=== PATIENT | female | born 1940 | race Caucasian/White ===

== ENCOUNTER 2023-09-17 15:17 | Emergency (ER) | payer OTHER ==
--- NOTE | 2023-09-17 15:55 | RAD REPORT ---
EXAM DESCRIPTION: CT - CTHCSPWOC - 09/17/2023 3:46 pm CLINICAL HISTORY: Trauma, head and neck injury. fall COMPARISON: No comparisons TECHNIQUE: Axial 5 mm thick images of the head were obtained. Axial 2 mm thick images of the cervical spine were obtained with sagittal and coronal reconstruction images generated and reviewed. All CT scans are performed using dose optimization technique as appropriate and may include automated exposure control or mA/KV adjustment according to patient size. FINDINGS: CT HEAD WITHOUT CONTRAST: No acute hemorrhage, hydrocephalus or extra-axial collection is identified.Mild generalized brain atr ophy is present with mild periventricular and deep white matter chronic microvascular ischemic change s.No areas of brain edema or midline shift. Vertebral atherosclerosis. The paranasal sinuses and mastoids are clear.The calvarium is intact. CT CERVICAL SPINE WITHOUT CONTRAST: No fracture or subluxation.Mild cervical degenerative changes, greatest at C3-4 and C4-5.No preverteb ral soft tissues swelling is identified. Mildly prominent lymph nodes are seen in the submandibular r egion bilaterally, nonspecific. IMPRESSION: No acute intracranial or cervical spine findings.
--- NOTE | 2023-09-17 16:15 | RAD REPORT ---
EXAM DESCRIPTION: RAD - Chest Single View - 09/17/2023 4:07 pm CLINICAL HISTORY: fall Chest pain. COMPARISON: <Comparisons> FINDINGS: Portable technique limits examination quality. The lungs are grossly clear. There is a small left pleural effusion noted. The heart is mildly enlarg ed with a dual lead pacer device present. IMPRESSION: Small left pleural effusion.
--- NOTE | 2023-09-17 16:16 | RAD REPORT ---
EXAM DESCRIPTION: RAD - Wrist Left 3 View - 09/17/2023 4:07 pm CLINICAL HISTORY: PAIN Pain COMPARISON: <Comparisons> FINDINGS: The bones are mildly demineralized. No fracture or dislocation seen. No foreign body or o ther soft tissue abnormality. Prominent degenerative changes seen first carpal/metacarpal joint.
--- NOTE | 2023-09-17 16:31 | EDPHYS ---
Physician Documentation [facility] Name: Miranda Myers Age: 83 yrs Sex: Female : 1940 Arrival Date: 09/17/2023 Time: 15:17 Bed 17 Private MD: ED Physician Shaun Sherwood HPI: 09/16 15:24 This 83 yrs old Female presents to ER via Unassigned with complaints of fall, ec2 wrist pain, neck pain. 15:24 Patient arrives today for evaluation of a fall. States that she was walking, ec2 subsequently tripped over a curb. Reports that she tried to land on her left outstretched arm however injured it. Denies loss of consciousness, is on warfarin. Complaining of neck pain as well. Historical: - Allergies: 15:27 No Known Allergies; ap3 - Home Meds: 15:27 Coumadin Oral [Active]; ap3 - PMHx: 15:27 hypotention; Diabetes mellitus; DVT; ap3 - Immunization history:: Client reports receiving the 2nd dose of the Covid vaccine, Last tetanus immunization: up to date. - Infectious Disease History:: Denies. - Social history:: Smoking status: Patient denies any tobacco usage or history of. ROS: 15:24 Constitutional: as per hpi ec2 Exam: 15:24 Constitutional: GEN: No acute distress HEENT: -Head: no deformities -Eyes: EOMI CV: ec2 regular rate LUNGS: no respiratory distress ABD: non-tender SKIN: no wounds appreciated MSK: No C/T/L spine deformities, C-spine TTP RUE w/o bony deformity LUE w/o bony deformity, left wrist TTP without deformity, no crepitus, intact distal neurovascular status. RLE w/o bony deformity LLE w/o bony deformity NEURO: moves all extremities equally, GCS 15 (E4, V5, M6) Vital Signs: 15:25 Weight 65.77 kg; Height 5 ft. 5 in. ; Pain 6/10; ap3 16:52 BP 130 / 85; Pulse 51; Resp 17; Pulse Ox 98% ; nj1 19:15 BP 126 / 80; Pulse 50; Resp 16; Pulse Ox 97% ; nj1 15:25 Body Mass Index 24.13 (65.77 kg, 165.1 cm) ap3 15:25 Pain Scale: Adult ap3 MDM: 15:19 Patient medically screened. ec2 15:24 Data reviewed: vital signs. ED course: Patient arrives today for wrist pain and neck ec2 pain. Examination remarkable for well-appearing nontoxic but is otherwise in no acute distress with reproducible left wrist TTP and C-spine TTP. Will obtain CT scan of the head and C-spine given the patient's age and blood thinner use, also plain radiograph of the left wrist. Differential diagnose include wrist fracture, intracranial brain bleed, C-spine fracture.. 16:27 ED course: Chest x-ray Reviewed and interpreted by me, shows left-sided pleural ec2 effusion, no evidence of trauma. CT scan of the head as well as wrist radiographs show no acute traumatic pathology. Reassessment patient is well-appearing in no acute distress, no respiratory issues. Will discharge home. Return precautions given . 09/16 15:24 Order name: CT Head C Spine; Complete Time: 16:26 ec2 09/16 15:24 Order name: Wrist Left (3 View) XRAY; Complete Time: 16:26 ec2 09/16 15:24 Order name: CXR XRAY; Complete Time: 16:26 ec2 09/16 16:50 Order name: Vital Signs; Complete Time: 16:52 ec2 Administered Medications: No medications were administered Disposition Summary: 09/17/23 16:31 Discharge Ordered Notes: Location: Home ec2 Condition: Stable ec2 Diagnosis - Pain in left wrist ec2 - Strain of muscle, fascia and tendon at neck level ec2 Followup: ec2 - With: Private Physician - When: - Reason: Re-evaluation by your physician Discharge Instructions: - Discharge Summary Sheet ec2 - Wrist Pain, Adult, [id number] ec2 Forms: - Medication Reconciliation Form ec2 - Antibiotic Education ec2 - Prescription Opioid Use ec2 - Patient Portal Instructions ec2 - Leadership Thank You Letter ec2 Signatures: Dispatcher [employer] Fifi Dan RN RN ap3 Shaun Sherwood MD MD ec2 Corrections: (The following items were deleted from the chart) 15:24 15:24 Chest Single View+[id number].[email or web address] ordered. EDMS EDMS
--- NOTE | 2023-09-17 16:31 | ER ---
Nurse's Notes [facility] Name: Miranda Myers Age: 83 yrs Sex: Female : 1940 Arrival Date: 09/17/2023 Time: 15:17 Bed 17 Private MD: Diagnosis: Pain in left wrist;Strain of muscle, fascia and tendon at neck level Presentation: 09/16 15:25 Chief complaint: EMS states: patient tripped and fall over curb FELT [employer], complaining of ap3 pain on her left hand, and left arm. EMS states patient was laying on her left arm when they arrived. Patient denies LOC, and denies hitting her head. patient is on Coumadin. Coronavirus screen: At this time, the client does not indicate any symptoms associated with coronavirus-19. Ebola Screen: No symptoms or risks identified at this time. Initial Sepsis Screen: Does the patient meet any 2 criteria? No. Patient's initial sepsis screen is negative. Does the patient have a suspected source of infection? No. Patient's initial sepsis screen is negative. Risk Assessment: Do you want to hurt yourself or someone else? Patient reports no desire to harm self or others. Onset of symptoms was September 17, 2023. 15:25 Method Of Arrival: EMS: [facility] ap3 15:25 Acuity: TEVIN 3 ap3 Triage Assessment: 15:28 General: Appears in no apparent distress. Behavior is calm, cooperative, appropriate ap3 for age. Pain: Complains of pain in left hand and left arm Pain currently is 6 out of 10 on a pain scale. Pain began suddenly, after fall. Neuro: Level of Consciousness is awake, alert, obeys commands, Oriented to person, place, time, situation. Cardiovascular: Patient's skin is warm and dry. Respiratory: Airway is patent Respiratory effort is even, unlabored, Respiratory pattern is regular, symmetrical. Historical: - Allergies: 15:27 No Known Allergies; ap3 - Home Meds: 15:27 Coumadin Oral [Active]; ap3 - PMHx: 15:27 hypotention; Diabetes mellitus; DVT; ap3 - Immunization history:: Client reports receiving the 2nd dose of the Covid vaccine, Last tetanus immunization: up to date. - Infectious Disease History:: Denies. - Social history:: Smoking status: Patient denies any tobacco usage or history of. Screenin:28 Abuse screen: Denies threats or abuse. Nutritional screening: No deficits noted. ap3 Tuberculosis screening: No symptoms or risk factors identified. 16:00 [facility] ED Fall Risk Assessment (Adult) History of falling in the last 3 months, nj1 including since admission Yes- single mechanical fall (1 pt) Confusion or Disorientation No (0 pts) Intoxicated or Sedated No (0 pts) Impaired Gait Yes (1 pt) Mobility Assist Device Used Yes (1 pt) Altered Elimination No (0 pt) Score/Fall Risk Level 3 or more points = High Risk Oriented to surroundings, Maintained a safe environment, Hourly rounding (assess needs \T\ fall precautionary measures) done. Assessment: 15:21 Reassessment: Daughter Victoria Davis [phone]. hb 16:53 Reassessment: Patient appears in no apparent distress at this time. Call placed to [facility] patients daughter to advise patient has been discharge, needs transport home. 17:00 Reassessment: Awaiting discharge transportation. nj 18:52 Reassessment: Unsuccessful attempt to call patients daughter to obtain discharge [facility] transportation update. 19:15 Reassessment: Patient appears in no apparent distress at this time. Patient is alert, nj1 oriented x 3, equal unlabored respirations, skin warm/dry/pink. 19:30 Reassessment: Daughter here to take patient home. Assisted patient to wheelchair and nj1 taken to vehicle. Vital Signs: 15:25 Weight 65.77 kg; Height 5 ft. 5 in. ; Pain 6/10; ap3 16:52 BP 130 / 85; Pulse 51; Resp 17; Pulse Ox 98% ; nj1 19:15 BP 126 / 80; Pulse 50; Resp 16; Pulse Ox 97% ; nj1 15:25 Body Mass Index 24.13 (65.77 kg, 165.1 cm) ap3 15:25 Pain Scale: Adult ap3 ED Course: 15:19 Patient arrived in ED. ec2 15:19 Shaun Sherwood MD is Attending Physician. ec2 15:27 Triage completed. ap3 15:29 Arm band placed on right wrist. ap3 15:29 Patient has correct armband on for positive identification. Fall risk band placed. ap3 15:47 CT Head C Spine In Process Unspecified. EDMS 16:00 Provided Education on: call light, fall precautions. nj1 16:09 Wrist Left (3 View) XRAY In Process Unspecified. EDMS 16:09 CXR XRAY In Process Unspecified. EDMS 16:11 Deloris Alas, RN is Primary Nurse. nj1 16:50 No provider procedures requiring assistance completed. nj1 16:50 Patient did not have IV access during this emergency room visit. nj1 Administered Medications: No medications were administered Medication: 16:50 VIS not applicable for this client. nj1 Outcome: 16:31 Discharge ordered by . ec2 16:50 Discharged to home nj1 16:50 Condition: stable 16:50 Discharge instructions given to patient, Instructed on discharge instructions, follow up and referral plans. safety practices, Demonstrated understanding of instructions, follow-up care, 19:42 Patient left the ED. nj1 Signatures: Dispatcher [employer] EDPR Doris Renee RN RN Fifi Street RN RN ap3 Deloris Alas RN RN nj1 Shaun Sherwood MD MD ec2
[2023-09-17 21:25] VITALS: BP 130/85; O2SAT 98
== END 2023-09-17 19:42 | disposition home or self-care (01) ==
LOC: ER 15:17
DX: S16.1XXA Strain of muscle, fascia and tendon at neck level, initial encounter (principal); M25.532 Pain in left wrist; W18.09XA Striking against other object with subsequent fall, initial encounter
CPT/HCPCS: 70450; 71045; 72125; 99283

== ENCOUNTER 2023-12-06 15:41 | Inpatient (IN) | payer OTHER ==
[2023-12-06 16:34] LABS: Absolute Eosinophils 0.1 K/uL (0-0.5); Absolute Lymphocytes (CBC) 0.6 K/uL (0.7-4.9); Absolute Monocytes 0.2 K/uL (0.1-1.3); Absolute Neutrophil 2.7 K/uL (1.8-8.0); Basophils % 0.7 % (0-1.3); Eosinophils % 1.7 % (0-4.4); Hematocrit 37.3 % (36.0-45.0); Hemoglobin 11.9 g/dL (12.0-15.0); Lymphocytes % 17.4 % (15.3-44.8); MCH 31.3 pg (27.0-35.0); MCV 97.6 fL (80-100); MPV 10.3 fL (7.6-11.3); Monocytes % 6.3 % (3.3-12.3); Neutrophils % 73.9 % (41.7-73.7); Nucleated Red Blood Cells % 0.8 % (0-0); Platelets 59 thou/uL (152-406); RBC Red Blood Cell Count 3.82 M/uL (3.86-4.86); Red Cell Distribution Width 17.1 % (12.1-15.2)
[2023-12-06 16:35] LABS: Blood Morphology Comment NOT SEEN (NOT SEEN); Platelet Estimate DECR; Platelets, Giant PRESENT; White Blood Cell Scan OK (OK)
[2023-12-06 16:39] LABS: PT Prothrombin Time 13.3 SECONDS (9.4-12.5); PTT, Activated Partial Thromb 26.7 SECONDS (24.3-36.9); Protime INR 1.19
[2023-12-06 16:52] LABS: Albumin 3.3 g/dL (3.4-5.0); Albumin/Globulin Ratio 0.9 (1.1-1.8); Anion Gap 10.8 mEq/L (5.0-15.0); Bilirubin Total 1.3 mg/dL (0.2-1.0); Globulin 3.6 g/dL (2.3-3.5); Potassium 2.8 mEq/L (3.5-5.1); Protein, Total 6.9 g/dL (6.4-8.2); Troponin High Sensitivity 91.4 pg/mL (<58.9)
--- NOTE | 2023-12-06 16:52 | RAD REPORT ---
EXAM DESCRIPTION: Coreen Single View12/06/2023 4:34 pm CLINICAL HISTORY: Confusion COMPARISON: September 2023 FINDINGS: The lungs appear clear of acute infiltrate. The heart is mildly enlarged. Pacemaker leads are in place. IMPRESSION: No acute abnormalities displayed
--- NOTE | 2023-12-06 16:55 | RAD REPORT ---
EXAM DESCRIPTION: CT - Head Brain Wo Cont - 12/06/2023 4:40 pm CLINICAL HISTORY: Alteration of awareness/confusion COMPARISON: August 2023 TECHNIQUE: Computed axial tomography of the head was obtained. IV contrast was not requested. All CT scans are performed using dose optimization technique as appropriate and may include automated exposure control or mA/KV adjustment according to patient size. FINDINGS: An intracranial bleed is not seen The ventricles are normal in caliber No extra-axial fluid collection is noted. Prominent cerebral atrophy Mild low-density areas within periventricular, deep and subcortical white matter likely represent isc hemic changes secondary to small vessel disease. Fluid within the sinuses/ mastoids is not seen. IMPRESSION: No acute intracranial abnormality is seen If patient's symptoms persist MRI of the brain would be recommended
[2023-12-06 17:12] LABS: Specific Gravity 1.027 (1.005-1.030); Sqamous Epithelial <5 /HPF (None Seen); Urine Bacteria <20 /HPF (<20); Urine Bilirubin 1+ (Negative); Urine Blood Negative (Negative); Urine Clarity Turbid (Clear); Urine Color Yellow (Yellow); Urine Culture Reflex Order NOT NEEDED; Urine Glucose NEGATIVE (Negative); Urine Ketones NEGATIVE (Negative); Urine Microscopic Reflex YN ORDER UMIC; Urine Mucus 1+ /HPF (None Seen); Urine Nitrite NEGATIVE (Negative); Urine Protein 1+ (Negative); Urine RBC 21-50 /HPF (None Seen); Urine Urobilinogen 2+ (Normal); Urine WBC <5 /HPF (<5); Urine pH 5.5 (5.0-7.0)
--- NOTE | 2023-12-06 18:13 | ER ---
Nurse's Notes [facility] Name: Miranda Myers Age: 83 yrs Sex: Female : 1940 Arrival Date: 12/06/2023 Time: 15:41 Bed 6 Private MD: Diagnosis: Altered mental status, hyponatremia Presentation: 12/05 15:47 Chief complaint: EMS states: Pt brought in via EMS from home for altered mental status. dd2 Per EMS, pt's daughter states that pt was not responding to her. Daughter states that at 0700 this morning, she heard her mother snoring and assumed she was asleep. Last known well was last night. Pt has Hx Dementia. Coronavirus screen: At this time, the client does not indicate any symptoms associated with coronavirus-19. Ebola Screen: No symptoms or risks identified at this time. Initial Sepsis Screen: Does the patient meet any 2 criteria? No. Patient's initial sepsis screen is negative. Does the patient have a suspected source of infection? No. Patient's initial sepsis screen is negative. Risk Assessment: Do you want to hurt yourself or someone else? Unable to obtain. Onset of symptoms is unknown. Care prior to arrival: Medication(s) given: Normal saline infusion, 200cc IV initiated. 18 GA, in the right antecubital area, Glucose check: 122. 15:47 Method Of Arrival: EMS: [facility] dd2 15:47 Acuity: TEVIN 2 dd2 Triage Assessment: 15:54 General: Appears ill, unkempt, Behavior is lethargic. Smells of urine. Pain: Unable to dd2 use pain scale. Does not appear to understand pain scale. EENT: Oral mucosa is dry. mouth and tongue are dry and peeling. Neuro: Level of Consciousness is lethargic, Oriented to none. Historical: - PMHx: 15:54 Dementia; diabetes mellitus; DVT; Hypotention; dd2 - Immunization history:: Adult Immunizations unknown. - Infectious Disease History:: unable to access. - Social history:: Smoking status: unknown. - Unable to obtain history due to: altered mental status. Screenin:25 [facility] ED Fall Risk Assessment (Adult) History of falling in the last 3 months, dd2 including since admission Yes- fall prone (multiple falls) (3 pts) Confusion or Disorientation Yes (5 pts) Intoxicated or Sedated No (0 pts) Impaired Gait Yes (1 pt) Mobility Assist Device Used Yes (1 pt) Altered Elimination Yes (1 pt) Score/Fall Risk Level 3 or more points = High Risk Oriented to surroundings, Maintained a safe environment, Hourly rounding (assess needs \\T\\ fall precautionary measures) done, Utilized family, sitter, or virtual sfdc solution architect as indicated. Abuse screen: Per [facility], report being filed with APS. Informed tank builder and erector of situation documented and need of APS call. Nutritional screening: Oral mucosa dry and peeling. Pt's daughter states pt has decreased taking in PO liquid of food.. Tuberculosis screening: No symptoms or risk factors identified. Assessment: 16:25 Pain: Unable to use pain scale. Does not appear to understand pain scale. dd2 Cardiovascular: Heart tones S1 S2 skin cool to touch. Rhythm is atrial pacer. Respiratory: Airway is patent Trachea Respiratory effort is even, unlabored, Respiratory pattern is snoring Breath sounds are clear bilaterally. GI: Abdomen is non-distended, Abd is soft and non tender Pt's daughter states decrease in food and po liquid intake. : Blevins in place Urine is tea colored. Musculoskeletal: Capillary refill < 3 seconds. 17:06 Reassessment: Pt noted wearing 2 adult briefs, and one incontinence pads. All saturated dd2 with foul smelling, tea colored urine. Breakdown noted to Lt groin area. This RN inquired when the last brief change occurred. Daughter stated "2 days ago". 17:13 Derm:. Derm: Wound noted left inguinal area Wound is Pressure wound noted after dd2 removing 2 briefs and incontinent pad. 18:03 Reassessment: Patient and/or family updated on plan of care and expected duration. Pain rs5 level reassessed. family at bedside . General: Appears in no apparent distress. comfortable, ill. Neuro:. 12/06 12:03 Reassessment: APS report made REF #[id number] June ([id number]). dd2 Vital Signs: 12/05 15:47 BP 112 / 86; Pulse 91; Resp 18; Temp 96.9(TE); Pulse Ox 96% ; dd2 16:48 BP 131 / 82; Pulse 91; Resp 19; Pulse Ox 97% ; dd2 17:15 BP 149 / 96; Pulse 88; Resp 19; Temp 96.9(TE); Pulse Ox 96% ; dd2 18:00 BP 105 / 67; Pulse 85; Resp 17; Pulse Ox 93% ; dd2 19:43 BP 105 / 81; Pulse 80; Resp 22; Temp 96.5(A); Pulse Ox 94% on R/A; br2 21:04 BP 128 / 82; Pulse 81; Resp 18; Pulse Ox 94% on R/A; br2 21:34 BP 117 / 66; Pulse 83; Resp 18; Temp 96.4(A); Pulse Ox 94% on R/A; br2 22:10 BP 121 / 77; Pulse 85; Resp 18; Temp 97(A); Pulse Ox 93% on R/A; br2 ED Course: 15:42 Patient arrived in ED. ko1 15:43 Reilly Noel MD is Attending Physician. sp3 15:46 PACHECO RUIZ, RN is Primary Nurse. dd2 15:54 Triage completed. dd2 15:54 Arm band placed on right wrist. Patient placed in an exam room, on a stretcher, on dd2 secured entrance monitor, on pulse oximetry. 16:20 Client placed on continuous cardiac and pulse oximetry monitoring. NIBP monitoring dd2 applied. satellite project site monitor on. 16:20 No provider procedures requiring assistance completed. Initial lab(s) drawn, by ED dd2 staff, sent to lab. First set of blood cultures drawn by ED staff, Urine collected: Blevins catheter specimen, tea colored, sediment noted, Amount Returned: 400mL EKG done, by ED staff, reviewed by Reilly Noel MD. 16:25 Patient has correct armband on for positive identification. Bed in low position. Call dd2 light in reach. Side rails up X2. Adult w/ patient. Door closed. Warm blanket given. 16:35 Chest Single View XRAY In Process Unspecified. EDMS 16:41 CT Head Brain wo Cont In Process Unspecified. EDMS 17:00 Maintain EMS IV. Dressing intact. Good blood return noted. Site clean \\T\\ dry. Gauge \\T\\ dd 2 site: 18g RAC. Flushed with 10 mL NS. 18:12 Dionicio Harrison MD is Hospitalizing Provider. sp3 21:30 Patient admitted, IV remains in place. br2 21:44 SBAR FAXED AND 4TH FLOOR NOTIFIED VIA PHONE. br2 22:37 Provided Education on: need for admission. bm8 Administered Medications: No medications were administered Medication: 16:25 VIS not applicable for this client. dd2 Output: 19:45 Urine: 350ml (Blevins); Total: 350ml. br2 Outcome: 18:12 Decision to Hospitalize by Provider. sp3 21:28 Admitted to Med/surg accompanied by nurse, via stretcher, room 412, br2 21:28 Condition: stable 22:38 Patient left the ED. br2 Signatures: Dispatcher [employer] EDMS Reilly Noel MD MD sp3 Mali Renae RN RN ko1 Johnathon Parker RN RN rs5 Win Kirby RN RN bm8 Carmella Witt, RN RN br2 PACHECO RUIZ RN RN dd2
--- NOTE | 2023-12-06 18:13 | EDPHYS ---
Physician Documentation [facility] Name: Miranda Myers Age: 83 yrs Sex: Female : 1940 Arrival Date: 12/06/2023 Time: 15:41 Bed 6 Private MD: ED Physician Reilly Noel HPI: 12/05 16:22 This 83 yrs old Female presents to ER via EMS with complaints of Altered Mental Status. sp3 16:22 83-year-old female with history of dementia, diabetes, prior DVT, hypertension in the sp3 past now presents via EMS referred by daughter who states that her mental status is suddenly became worse with full loss of orientation and decreased ability to speak. She denies any known fever, significant fluid losses, known sick contacts, travel history, complaints of any pain, or any other signs or symptoms on limited ROS as given by daughter at this time. Patient's direct history and physical and ROS limited secondary to her dementia and altered mental status.. Historical: - PMHx: 15:54 Dementia; diabetes mellitus; DVT; Hypotention; dd2 - Immunization history:: Adult Immunizations unknown. - Infectious Disease History:: unable to access. - Social history:: Smoking status: unknown. - Unable to obtain history due to: altered mental status. ROS: 16:23 Unable to obtain ROS due to altered mental status, baseline dementia, sp3 Exam: 16:23 Constitutional: The patient appears Grossly patient in no acute distress based on sp3 visualization. Abdomen is soft, lungs are clear heart rate is normal and regular. Patient does respond to verbal stimuli however is disoriented and speech is mumbled and limited. 16:29 ECG was reviewed by the Attending Physician. EKG demonstrates paced rhythm with sp3 ventricular arrhythmia and ventricular capture at 90 bpm Vital Signs: 15:47 BP 112 / 86; Pulse 91; Resp 18; Temp 96.9(TE); Pulse Ox 96% ; dd2 16:48 BP 131 / 82; Pulse 91; Resp 19; Pulse Ox 97% ; dd2 17:15 BP 149 / 96; Pulse 88; Resp 19; Temp 96.9(TE); Pulse Ox 96% ; dd2 18:00 BP 105 / 67; Pulse 85; Resp 17; Pulse Ox 93% ; dd2 19:43 BP 105 / 81; Pulse 80; Resp 22; Temp 96.5(A); Pulse Ox 94% on R/A; br2 21:04 BP 128 / 82; Pulse 81; Resp 18; Pulse Ox 94% on R/A; br2 21:34 BP 117 / 66; Pulse 83; Resp 18; Temp 96.4(A); Pulse Ox 94% on R/A; br2 22:10 BP 121 / 77; Pulse 85; Resp 18; Temp 97(A); Pulse Ox 93% on R/A; br2 MDM: 15:44 Patient medically screened. sp3 16:24 Data reviewed: vital signs, nurses notes, old medical records, lab test result(s), EKG, sp3 radiologic studies. ED course: 83-year-old female with dementia and significant PMH above now with altered mental status. Differential diagnosis includes delirium, infection, sepsis, pneumonia, UTI, electrolyte abnormality, elevated ammonia, among several others. Workup will include CT scan of the head, laboratory values, sepsis workup, cultures, lactate and general supportive care with probable admission once data is returned.. 18:11 ED course: CT scan negative. Laboratory values demonstrate hyponatremia at 152 with sp3 elevated creatinine. Will give slow IV fluids. Lactate normal. Will admit to internal medicine for continued workup of altered mental status.. 12/05 15:45 Order name: Blood Culture Adult (2) sp3 12/05 15:45 Order name: CBC with Diff; Complete Time: 16:59 sp3 12/05 15:45 Order name: CMP; Complete Time: 17:12 3 12/05 15:45 Order name: Lactate w/ 2H reflex if indic.; Complete Time: 16:59 3 12/05 15:45 Order name: Protime (+inr); Complete Time: 16:59 sp3 12/05 15:45 Order name: Ptt, Activated; Complete Time: 16:59 sp3 12/05 15:45 Order name: Urinalysis w/ reflexes; Complete Time: 17:44 sp3 12/05 15:45 Order name: Troponin High Sensitivity; Complete Time: 17:12 sp3 12/05 16:17 Order name: AMMONIA; Complete Time: 17:44 sp3 12/05 16:35 Order name: CBC Smear Scan; Complete Time: 16:59 EDMS 12/05 20:16 Order name: Urinalysis W/Microscopic EDMS 12/05 20:16 Order name: Creatine Phosphokinase EDMS 12/05 20:16 Order name: Thyroid Stimulating Hormone EDMS 12/05 20:16 Order name: UR CREAT EDMS 12/05 20:16 Order name: UR SODIUM EDMS 12/05 20:16 Order name: CBC with Automated Diff EDMS 12/05 20:16 Order name: CBC with Automated Diff EDMS 12/05 20:16 Order name: Comprehensive Metabolic Panel EDMS 12/05 20:16 Order name: Comprehensive Metabolic Panel EDMS 12/05 20:16 Order name: Comprehensive Metabolic Panel EDMS 12/05 20:16 Order name: Comprehensive Metabolic Panel EDMS 12/05 20:16 Order name: Magnesium EDMS 12/05 20:16 Order name: Magnesium EDMS 12/05 20:16 Order name: Magnesium EDMS 12/05 20:16 Order name: Magnesium EDMS 12/05 20:22 Order name: Troponin High Sensitivity EDMS 12/05 20:22 Order name: Troponin High Sensitivity EDMS 12/05 20:22 Order name: Troponin High Sensitivity EDMS 12/05 15:45 Order name: Chest Single View XRAY; Complete Time: 16:59 sp3 12/05 15:45 Order name: CT Head Brain wo Cont; Complete Time: 16:59 sp3 12/05 15:45 Order name: EKG; Complete Time: 15:46 sp3 12/05 20:12 Order name: Social Service Consult EDWI 12/05 15:45 Order name: Cardiac monitoring; Complete Time: 17:04 sp3 12/05 15:45 Order name: EKG - Nurse/Tech; Complete Time: 17:04 sp3 12/05 15:45 Order name: IV Saline Lock - Large Bore; Complete Time: 17:04 sp3 12/05 15:45 Order name: Labs collected and sent; Complete Time: 17:04 sp3 12/05 15:45 Order name: O2 Per Protocol; Complete Time: 17:04 sp3 12/05 15:45 Order name: O2 Sat Monitoring; Complete Time: 17:04 sp3 12/05 15:45 Order name: Vital Signs; Complete Time: 17:04 sp3 12/05 15:45 Order name: Blevins; Complete Time: 17:04 sp3 Administered Medications: No medications were administered Disposition Summary: 12/06/23 18:12 Hospitalization Ordered Notes: Hospitalization Status: Inpatient Admission sp3 Provider: Dionicio Harrison sp3 Location: Telemetry/[facility] (Inpatient) sp3 Condition: Stable sp3 Problem: an acute exacerbation sp3 Symptoms: have worsened sp3 Bed/Room Type: Standard sp3 Room Assignment: 412(12/06/23 20:34) kl Diagnosis - Altered mental status, hyponatremia sp3 Forms: - Medication Reconciliation Form sp3 - SBAR form sp3 - Leadership Thank You Letter sp3 Signatures: Dispatcher [employer] Mayra Galo RN RN Reilly Pena MD MD sp3 Carmella Witt RN RN br2 PACHECO RUIZ RN RN dd2 Corrections: (The following items were deleted from the chart) 20:34 18:12 sp3 kl
[2023-12-06] MEDS ORDERED: ONDANSETRON 4 MG/2 ML VIAL IV PRN (20:10)
--- NOTE | 2023-12-06 20:10 | P.HP ---
Certification for Inpatient With expected LOS: >2 Midnights Patient will require the following post-hospital care: Usp Practitioner: I am a practitioner with admitting privileges, knowledge of patient current condition, hospital course, and medical plan of care. Services: Services provided to patient in accordance with Admission requirements found in Title 42 Section 412.3 of the Code of Federal Regulations Patient History Date of Service: 12/06/23 Reason for admission: Worsening confusion/failure to thrive History of Present Illness: 83-year-old female with no past medical history except diagnosis of dementia, not on any medication, recently moved in with the daughter due to increasing confusion, was brought by the daughter today because of increasing and worsening confusion at home. Daughter state patient confusion has been worsening the last several months. She has seems to be disorganized and having trouble with things. Daughter states patient easily gets angry and agitated at her. She has also been refusing to take p.o. with worsening anorexia in the last 1 month. Daughter reports she has been trying to force patient to drink more protein s hakes. Patient does not like to drink water and has regular activity be getting done. Daughter brought her to the hospital today because she has been more lethargic or drowsy recently. Arrival in the ED vital signs were stable. WBC was unremarkable except for hemoglobin of 11.9, BMP shows serum sodium of 152 with potassium of 2.8, creatinine of 1.35, serum albumin of 3.3 . Urinalysis unremarkable except for 21-50 RBCs although negative blood less than [address] of the head was shows no acute intracranial pathology. Chest x-ray was clear. Patient is very drowsy and unable to give history, barely arousable to palpation. Daughter at bedside providing history. She states due to increasing difficulty with caring for patient and patient worsening anorexia she was considering placement for patient. She is thinking of [facility]. Home medications list reviewed: No - Past Medical/Surgical History Has patient received pneumonia vaccine in the past: No Past Medical History: Patient denies medical history -: Dementia Past Surgical History: Patient denies surgical history - Family History Family History: Reviewed- Non-Contributory - Social History Smoking Status: Never smoker Alcohol use: No CD- Drugs: No Caffeine use: No Place of Residence: Home Review of Systems is unable to be obtained (Due to dementia) Physical Examination - Physical Exam General: Oriented x1, Delirious, Other (Sleepy) HEENT: Atraumatic, Normocephalic, PERRLA, Other (Markedly dry oral mucosa) Neck: Supple, 2+ carotid pulse no bruit, JVD not distended Respiratory: Clear to auscultation bilaterally, Normal air movement Cardiovascular: No edema, Normal pulses, Regular rate/rhythm, Normal S1 S2 Gastrointestinal: Normal bowel sounds, Soft and benign, Non-distended, No tenderness Musculoskeletal: No clubbing, No swelling, No contractures Integumentary: No breakdown, No significant lesion Neurological: Cranial nerves 3-12 intact, Normal reflexes 2+, Dementia Urinary: Blevins catheter (Dark-colored urineCoca-Cola colored) - Studies Laboratory Data (last 24 hrs) 12/06/23 12/06/23 12/06/23 16:20 16:20 16:20 WBC 3.60 L Hgb 11.9 L Hct 37.3 Plt Count 59 L PT 13.3 H INR 1.19 APTT 26.7 Sodium 152 H* Potassium 2.8 L BUN 53 H Creatinine 1.35 H Glucose 115 H Total Bilirubin 1.3 H AST 16 ALT 26 Alkaline Phosphatase 50 Assessment and Plan - Problems (Diagnosis) (1) Dementia Current Visit: Yes Status: Acute (2) Anorexia Current Visit: Yes Status: Acute (3) Acute hypernatremia Current Visit: Yes Status: Acute (4) Hypokalemia Current Visit: Yes Status: Acute (5) Acute kidney injury Current Visit: Yes Status: Acute - Plan Impression Acute hypernatremialikely due to osmotic solute diuresis from high protein intake in the absence of free water Acute hypokalemia Toxic encephalopathydue to hyponatremia Acute kidney injurylikely due to prerenal Underlying dementia Hematuriamay be due to trauma from Blevins placement, follow repeat UA in a.m. Plan We admit patient to inpatient status Will start patient on aggressive IV fluid with half NS plus KCl Monitor serum sodium Follow BMP every 12 Calculated free water of greater than 2.5 L Replete free water in half over next 16 to 24 hours Nephrology, follow in a.m. if serum sodium still above 148 Monitor creatinine trend Monitor mental status, may obtain MRI of the brain if not improving drowsiness to rule out occult CVA although less likely José Migueldon as needed agitation Case management for placement Advance directivediscussed with POAdaughter, she wishes DNR/DNI Expected hospital stay for more than 2 days Coca-Cola colored urine may be due to high solute concentration, versus trauma from Blevins, follow repeat UA in a.m. after aggressive hydration Discharge Plan: Fdc Plan to discharge in: Greater than 2 days - Advance Directives Does patient have a Living Will: Yes Does patient have a Durable POA for Healthcare: No - Code Status/Comfort Care Code Status: Do Not Intubate Physician Review: Patient Assessed, Agree with Above Assessment and Plan Time Spent Managing Pts Care (In Minutes): 70
[2023-12-06] MEDS ORDERED: HYDRALAZINE HCL 20 MG/ML VIAL IV PRN (20:13)
[2023-12-06] MEDS ORDERED: WATER FOR INJ,STERILE 10 ML IM PRN (20:13)
[2023-12-06] MEDS ORDERED: ZIPRASIDONE MESYLA 20 MG/VIAL IM PRN (20:13)
[2023-12-06] MEDS: MEGESTROL 40 MG TAB PO SCH (21:00)
[2023-12-06] MEDS: D5.45NS W/KCL 20MEQ 1,000 ML IV SCH (22:40)
[2023-12-06 23:23] LABS: Magnesium 1.8 mg/dL (1.6-2.4)
[2023-12-06 23:25] LABS: Thyroid Stimulating Hormone 61.5 uIU/mL (0.358-3.740)
[2023-12-07 06:04] LABS: Absolute Eosinophils 0.1 K/uL (0-0.5); Absolute Lymphocytes (CBC) 0.5 K/uL (0.7-4.9); Absolute Monocytes 0.2 K/uL (0.1-1.3); Absolute Neutrophil 2.1 K/uL (1.8-8.0); Basophils % 0.6 % (0-1.3); Eosinophils % 2.2 % (0-4.4); Hematocrit 27.3 % (36.0-45.0); Lymphocytes % 17.1 % (15.3-44.8); MCHC 32.9 g/dL (32.0-36.0); MCV 97.3 fL (80-100); MPV 10.3 fL (7.6-11.3); Monocytes % 7.6 % (3.3-12.3); Neutrophils % 72.5 % (41.7-73.7); Nucleated Red Blood Cells % 0.8 % (0-0); Platelets 60 thou/uL (152-406); RBC Red Blood Cell Count 2.81 M/uL (3.86-4.86); Red Cell Distribution Width 17.2 % (12.1-15.2)
[2023-12-07 06:10] LABS: Specific Gravity 1.028 (1.005-1.030); Sqamous Epithelial <5 /HPF (None Seen); Urine Bacteria 20-50 /HPF (<20); Urine Bilirubin 1+ (Negative); Urine Blood 2+ (Negative); Urine Clarity Extremely Turbid (Clear); Urine Color Yellow (Yellow); Urine Culture Reflex Order REFLEXED; Urine Glucose NEGATIVE (Negative); Urine Ketones TRACE (Negative); Urine Micro Reflex YN NO BILL MICROSCOPIC; Urine Mucus 2+ /HPF (None Seen); Urine Nitrite NEGATIVE (Negative); Urine Protein 1+ (Negative); Urine RBC 21-50 /HPF (None Seen); Urine Urobilinogen 2+ (Normal); Urine WBC 20-50 /HPF (<5); Urine pH 5.5 (5.0-7.0)
[2023-12-07 06:23] LABS: ALT/SGPT 16 U/L (13-56); Albumin 2.1 g/dL (3.4-5.0); Albumin/Globulin Ratio 0.9 (1.1-1.8); Alkaline Phosphatase 31 U/L (45-117); Anion Gap 9.4 mEq/L (5.0-15.0); BUN Blood Urea Nitrogen 37 mg/dL (7-18); Bicarbonate 20 mEq/L (21-32); Bilirubin Total 0.8 mg/dL (0.2-1.0); Globulin 2.3 g/dL (2.3-3.5); Glomerular Filtration Rate 70 ml/min (=/>90); Glucose Level 145 mg/dL (74-106); Protein, Total 4.4 g/dL (6.4-8.2)
[2023-12-07 06:24] LABS: AST/SGOT < 10 U/L (15-37)
[2023-12-07 06:26] LABS: Potassium 2.4 mEq/L (3.5-5.1); Sodium Level 154 mEq/L (136-145)
--- NOTE | 2023-12-07 07:41 | P.CNS ---
Date of Consult: 12/07/23 Reason for Consult: Hypernatremia Requesting Physician: Wil Worthy Chief Complaint: Worsening confusion/failure to thrive History of Present Illness: 83-year-old female with no past medical history except diagnosis of dementia, not on any medication, recently moved in with the daughter due to increasing confusion, was brought by the daughter today because of increasing and worsening confusion at home. Daughter state patient confusion has been worsening the last several months. She has seems to be disorganized and having trouble with things. Daughter states patient easily gets angry and agitated at her. She has also been refusing to take p.o. with worsening anorexia in the last 1 month. Daughter reports she has been trying to force patient to drink more protein shakes. Patient does not like to drink water and has regular activity be getting done. Daughter brought her to the hospital today because she has been more lethargic or drowsy recently. Arrival in the ED vital signs were stable. WBC was unremarkable except for hemoglobin of 11.9, BMP shows serum sodium of 152 with potassium of 2.8, creatinine of 1.35, serum albumin of 3.3 . Urinalysis unremarkable except for 21-50 RBCs although negative blood less than [address] of the head was shows no acute intracranial pathology. Chest x-ray was clear. Patient is very drowsy and unable to give history, barely arousable to palpation. Daughter at bedside providing history. She states due to increasing difficulty with caring for patient and patient worsening anorexia she was considering placement for patient. She is thinking of [facility]. [id number] 16:22 This 83 yrs old Female presents to ER via EMS with complaints of Altered Mental Status. sp3 16:22 83-year-old female with history of dementia, diabetes, prior DVT, hypertension in the sp3 past now presents via EMS referred by daughter who states that her mental status is suddenly became worse with full loss of orientation and decreased ability to speak. She denies any known fever, significant fluid losses, known sick contacts, travel history, complaints of any pain, or any other signs or symptoms on limited ROS as given by daughter at this time. Patient's direct history and physical and ROS limited secondary to her dementia and altered mental status.. Allergies No Known Allergies Allergy (Unverified 12/06/23 20:25) Home Medications: NK [No Home Meds] 12/07/23 - Past Medical/Surgical History Diabetic: Yes -: Dementia -: DM -: Hypotension - Social History Smoking Status: Unknown if ever smoked Alcohol use: No CD- Drugs: No Caffeine use: No Place of Residence: Home Review of Systems is unable to be obtained Physical Examination Temp Pulse Resp BP Pulse Ox 97.7 F 88 18 117/66 94 12/07/23 04:00 12/07/23 04:00 12/07/23 04:00 12/07/23 04:00 12/07/23 04:00 General: Delirious HEENT: Atraumatic Neck: Supple Respiratory: Clear to auscultation bilaterally, Normal air movement Cardiovascular: No edema, Regular rate/rhythm Gastrointestinal: Non-distended, No guarding Musculoskeletal: No clubbing, No warmth Integumentary: No rashes, No cyanosis Neurological: Abnormal speech Laboratory Data (last 24 hrs) 12/06/23 12/06/23 12/06/23 16:20 16:20 16:20 WBC 3.60 L Hgb 11.9 L Hct 37.3 Plt Count 59 L PT 13.3 H INR 1.19 APTT 26.7 Sodium 152 H* Potassium 2.8 L BUN 53 H Creatinine 1.35 H Glucose 115 H Total Bilirubin 1.3 H AST 16 ALT 26 Alkaline Phosphatase 50 Imagings Data: [id number] EXAM DESCRIPTION: RADChest Single View12/06/2023 4:34 pm CLINICAL HISTORY: Confusion COMPARISON: September 2023 FINDINGS: The lungs appear clear of acute infiltrate. The heart is mildly enlarged. Pacemaker leads are in place. IMPRESSION: No acute abnormalities displayed [id number] EXAM DESCRIPTION: CT - Head Brain Wo Cont - 12/06/2023 4:40 pm CLINICAL HISTORY: Alteration of awareness/confusion COMPARISON: August 2023 TECHNIQUE: Computed axial tomography of the head was obtained. IV contrast was not requested. All CT scans are performed using dose optimization technique as appropriate and may include automated exposure control or mA/KV adjustment according to patient size. FINDINGS: An intracranial bleed is not seen The ventricles are normal in caliber No extra-axial fluid collection is noted. Prominent cerebral atrophy Mild low-density areas within periventricular, deep and subcortical white matter likely represent ischemic changes secondary to small vessel disease. Fluid within the sinuses/ mastoids is not seen. IMPRESSION: No acute intracranial abnormality is seen If patient's symptoms persist MRI of the brain would be recommended Conclusions/Impression: Hypernatremia with encephalopathy -Change IVF to D5W Hypokalemia -Replete as ordered Hypomagnesemia -Replete as ordered DM II with CKD/ Proteinuria -RISS prn Hypoalbuminemia -Advance nutrition as tolerated Anemia in chronic illness -Monitor H&H especially with volume repletion -PRBC prn Hypothyroidism, uncontrolled -Consider IV Levothyroxine if NPO Acute Cystitis with Hematuria Proteinuria -Follow up urine culture Case reviewed with Dr. Worthy Thank you kindly for the consultation
[2023-12-07] MEDS ORDERED: D5W 1,000 ML IV SCH (08:00)
--- NOTE | 2023-12-07 08:55 | P.PN ---
Date of Service: 12/07/23 Subjective: family reports increased confusion recently, fatigue, drowsiness over the last few days decreased PO intake over the last ~2-3 weeks per family no recent change in medications no recent hospitalization outside of ER visits for falls here earlier in the year ROS: 10 point ROS as noted above, otherwise negative Physical Exam: GEN: awakens to loud verbal stimulia, nods yes/no but not completely consistent with questions, shakes head no when asked if can tell me her name CV: Regular rate and rhythm, no edema Pulm: Nonlabored respirations on room air, clear bilaterally ABD: soft, nondistended Neuro: somnolent, moves all extremities spontaneously, awakens to verbal stimuli then back to sleep chavez placed in ED Problem List: Severe Hypernatremia Toxic Encephalopathy Hypokalemia, Hypomagnesemia ALCIDES Hematuria NIDDM2 Hypothyroidism Dementia hx DVT Severe Hypernatremia Toxic Encephalopathy Hypokalemia, Hypomagnesemia ALCIDES family reports increased confusion recently, fatigue, drowsiness over the last few days. +decreased PO intake Na increased overnight on d5NS switch to d5w replete electrolytes recheck this evening nephrology consulted daily labs Hematuria urine dark brown coca-cola colored. Possibly from dehydration vs trauma from chavez catheter. UA suspicious for UTI, unable to get accurate history from patient Start empiric rocephin to cover possible UTI follow urine/blood culture chavez placed in ED NIDDM2 accu-cheks, SSI Hypothyroidism TSH significantly elevated 61.5 (12/05) IV synthroid for now, transition to PO once more awake/alert will need to recheck levels in a few months Dementia hx DVT confirm home meds, restart as appropriate VTE: Lovenox Code: DNR Dispo: Home vs SNF ~4 days pending stability/improvement Time Spent Managing Pts Care (In Minutes): 52
[2023-12-07] MEDS: ENOXAPARIN 40 MG/0.4 ML SQ SCH (09:00)
[2023-12-07] MEDS: KCL 20 MEQ/100 mL IVPB 20 MEQ/100 ML BAG IV SCH (09:09)
[2023-12-07] MEDS: D5W 1,000 ML IV SCH (09:09)
[2023-12-07] MEDS: CEFTRIAXONE 1,000 MG in NA CHLORIDE 0.9% 50 ML IVPB SCH (12:25)
--- NOTE | 2023-12-07 16:55 | EKG ---
Test Date: 2023-12-06 Test Time: 15:49:47 Data Collector: ES MEASUREMENT RESULTS: Intervals: Rate: 86 KS: 176 QRSD: 144 QT: 410 QTc: 490 [place]: P: 56 KS: 176 QRS: 63 T: 267 INTERPRETIVE STATEMENTS: Sinus rhythm with marked sinus arrhythmia with frequent ventricular-paced complexes [id number] Abnormal ECG Compared to ECG 12/06/2023 15:49:25 Ventricular preexcitation now present Fusion complex(es) no longer present Ventricular premature complex(es) no longer present Atrial-sensed ventricular-paced complex(es) or rhythm no longer present Electronically Signed On 12-07-23 16:52:49 CDT by Archie Dodge
--- NOTE | 2023-12-07 16:55 | EKG ---
Test Date: 2023-12-06 Test Time: 15:49:25 Highway Painter: TATY MEASUREMENT RESULTS: Intervals: Rate: 90 UT: 192 QRSD: 168 QT: 458 QTc: 560 [place]: P: 85 UT: 192 QRS: -69 T: 94 INTERPRETIVE STATEMENTS: Atrial-sensed ventricular-paced rhythm with frequent and consecutive premature ventricular complexes and fusion complexes Abnormal ECG No previous ECG available for comparison Electronically Signed On 12-07-23 16:52:51 CDT by Archie Dodge
[2023-12-07] MEDS: Mupirocin NASAL 2 APPL/1 GM TUBE NAS SCH (21:00)
[2023-12-08 00:43] LABS: Hematocrit 25.8 % (36.0-45.0); Hemoglobin 8.5 g/dL (12.0-15.0); MCH 31.9 pg (27.0-35.0); MCHC 32.9 g/dL (32.0-36.0); MCV 96.9 fL (80-100); MPV 9.1 fL (7.6-11.3); Platelets 47 thou/uL (152-406); RBC Red Blood Cell Count 2.66 M/uL (3.86-4.86)
[2023-12-08 01:00] LABS: Anion Gap 7.9 mEq/L (5.0-15.0); Magnesium 1.5 mg/dL (1.6-2.4); Potassium 2.9 mEq/L (3.5-5.1)
[2023-12-08] MEDS: Magnesium Sulfate 2gm IVPB 2 G/50 ML BAG IV ONE (01:13)
[2023-12-08] MEDS: KCL 20 MEQ/100 mL IVPB 20 MEQ/100 ML BAG IV SCH (01:14)
[2023-12-08] MEDS: LEVOTHYROXINE SODIUM 100 MCG VIAL IV SCH (05:43)
[2023-12-08 08:13] LABS: Albumin 2.9 g/dL (3.4-5.0); Anion Gap 10.3 mEq/L (5.0-15.0); Potassium 4.3 mEq/L (3.5-5.1)
[2023-12-08 08:20] LABS: Phosphorus 0.8 mg/dL (2.5-4.9)
--- NOTE | 2023-12-08 10:14 | P.PN ---
Date of Service: 12/08/23 Subjective: remains confused. arousable to verbal stimuli, tracks responding mostly with unintelligible mumbling. followed basic commands of open eyes / mouth responds to verbal stimuli. following commands minimal PO intake recently per family mouth is very dry ROS: 10 point ROS as noted above, otherwise negative Physical Exam: GEN: arousable to verbal stimuli, mumbles, follows basic commands as above CV: Regular rate and rhythm, no edema Pulm: Nonlabored respirations on room air, clear bilaterally ABD: soft, nondistended Neuro: somnolent, moves all extremities spontaneously, awakens to verbal stimuli chavez placed in ED Problem List: Severe Hypernatremia Toxic Encephalopathy Hypokalemia, Hypomagnesemia, Hypophosphatemia ALCIDES Gram positive bacteremia Hematuria NIDDM2 Hypothyroidism thrombocytopenia Dementia hx DVT Severe Hypernatremia Toxic Encephalopathy Hypokalemia, Hypomagnesemia, Hypophosphatemia ALCIDES, prerenal family reports increased confusion recently, fatigue, drowsiness over the last few days. +decreased PO intake continue d5w replete electrolytes recheck this evening nephrology consulted midline ordered d/t difficulty drawing labs / IV abx daily labs oliguria, secondary to dehydration, improving; adjust IVF Gram positive bacteremia Hematuria urine dark brown coca-cola colored. Possibly from dehydration vs trauma from chavez catheter placed in ED UA suspicious for UTI, however unable to get accurate history from patient continue empiric rocephin for now (12/06-) Urine cx (12/06): prelim mixed meche; >100k cfu/ml Blood cx: (12/05): GPC prelim in 3/4 bottles this morning ID consulted NIDDM2 accu-cheks, SSI Hypothyroidism TSH significantly elevated 61.5 (12/05) continue IV synthroid for now, transition to PO once more awake/alert will need to recheck levels in a few months thrombocytopenia Daily labs. Continue to monitor. Lovenox held since 12/06 d/t low Plt Dementia hx DVT confirm home meds, restart as appropriate VTE: Lovenox held d/t low plt Code: DNR Dispo: Home vs SNF ~2-3 days pending stability/improvement of renal function/electrolytes, blood cultures Time Spent Managing Pts Care (In Minutes): 52
[2023-12-08] MEDS: SODIUM PHOSPHATE 15 MM in NA CHLORIDE 0.9% 250 ML IV SCH (10:30)
[2023-12-08 11:00] LABS: Magnesium 2.6 mg/dL (1.6-2.4); Potassium 4.2 mEq/L (3.5-5.1)
[2023-12-08] MEDS: DOXYCYCLINE 100 MG in NA CHLORIDE 0.9% 100 ML IVPB SCH (13:57)
[2023-12-08] MEDS: VANCOMYCIN 1.25 GM in NA CHLORIDE 0.9% 250 ML IVPB SCH (16:34)
--- NOTE | 2023-12-08 18:23 | CON ---
History Of Present Illness: This is an 83-year-old female, brought in by family for generalized weak ness for 2 weeks and not able to communicate well. The patient was found to have elevated sodium and dehydration. She is getting fluid resuscitation. I was consulted for gram-positive cocci in blood, sensitivity and specificity pending. The patient is currently on Rocephin with very low urine outpu t. Most of the history was obtained through medical records and staff. Past Medical History: Dementia. See MARs. See HPI for further past medical history. Past Surgical History: Unavailable. Social History: Nonsmoker. Nondrinker. Family History: Noncontributory. Medications: Rocephin. See MARs for other medications. Allergies: NO KNOWN DRUG ALLERGIES. Review of Systems: Unable to obtain. Physical Examination: General: This is an 83-year-old female, lying in bed, not in any acute cardiopulmonary distress. Vital Signs: Temperature 96, pulse 79, respirations 16, blood pressure 103/73. HEENT: Somnolent, unable to open eyes, unable to respond. Neck: Supple. Lungs: Basal crackles. Heart: S1, S2. Regular. Abdomen: Soft, nontender. Bowel sounds present. Extremity: Trace edema. Hyperpigmentation noted in the left lower extremity. Laboratory Data: Shows WBC 3.3, hemoglobin 8.5, platelets are 47. Chemistry shows BUN of 33, creati nine 1.28. Micro data: Blood cultures are growing gram-positive cocci in clusters. Urine cultures are growing mixed meche. Urinalysis shows [address] head and chest x-ray is negative. Assessment And Plan: Severe dehydration with hypernatremia, gram-positive cocci in blood of unknown origin, possibly urinary tract versus lungs, stasis dermatitis, pancytopenia. I agree with Rocephin and recommend to add doxycycline 100 mg q.12 hours for broader coverage. Prognosis guarded. Thank you for consult. NF/MODL Voice ID: [id number] Report ID: [id number]
[2023-12-08 19:35] LABS: Phosphorus 1.8 mg/dL (2.5-4.9)
--- NOTE | 2023-12-08 20:20 | P.PN ---
Date of Service: 12/08/23 Vital Signs Temp Pulse Resp BP Pulse Ox 96.5 F L 60 14 124/75 95 12/08/23 16:00 12/08/23 16:00 12/08/23 16:00 12/08/23 16:00 12/08/23 16:00 Medications Acetaminophen (Acetaminophen 500 Mg Tab) 500 mg PO Q6H PRN PRN Reason: TEMP > 100' F Enoxaparin Sodium (Enoxaparin 40 Mg/0.4 Ml) 40 mg SQ DAILY [facility] Last Admin: 12/08/23 08:45 Dose: Not Given Hydralazine HCl (Hydralazine Hcl 20 Mg/Ml Vial) 10 mg IV Q6HP PRN PRN Reason: Titrate to SBP (MUST DEFINE) Dextrose/Water (Dextrose In Water (1-Liter)) 1,000 mls @ 100 mls/hr IV .Q10H [facility] Last Admin: 12/08/23 17:33 Dose: 1,000 mls Ceftriaxone Sodium 1,000 mg/ (Sodium Chloride) 50 mls @ 100 mls/hr IVPB DAILY [facility]; Protocol Last Admin: 12/08/23 08:44 Dose: 50 mls Vancomycin HCl 1.25 gm/ Sodium (Chloride) 250 mls @ 166.667 mls/hr IVPB Q36H [facility]; Protocol Last Admin: 12/08/23 16:34 Dose: 250 mls Potassium Phosphate (Potassium Phos 15 Mmol/250 Ml Ns) 15 mmol in 250 mls @ 62.5 mls/hr IV 1X ONE; Protocol Stop: 12/09/23 00:12 Levothyroxine Sodium (Levothyroxine Sodium 100 Mcg Vial) 75 mcg IV [id number] [facility] Last Admin: 12/08/23 05:43 Dose: 75 mcg Morphine Sulfate (Morphine 2 Mg/Ml Syr) 2 mg IV Q4H PRN PRN Reason: Pain scale 5-7 (Moderate) Mupirocin (Mupirocin Nasal 2 Appl/1 Gm Tube) 1 appl EDMUNDO BID [facility] Stop: 12/12/23 09:01 Last Admin: 12/08/23 08:45 Dose: 1 appl Ondansetron HCl (Ondansetron 4 Mg/2 Ml Vial) 4 mg IV Q8H PRN PRN Reason: NAUSEA / VOMITING Sterile Water (Water For Inj,Sterile 10 Ml) 1.2 ml IM UD PRN PRN Reason: DILUTION OF MED Ziprasidone (Ziprasidone Mesyla 20 Mg/Vial) 10 mg IM Q12H PRN PRN Reason: DEMENTIA Microbiology Results 12/06/23 18:16 Blood - Blood Aerobic Blood Culture - Preliminary 12/06/23 18:16 Blood - Blood Blood Culture Gram Stain - Preliminary 12/06/23 18:16 Blood - Blood Anaerobic Blood Culture - Preliminary 12/06/23 18:16 Blood - Blood Gram Stain - Preliminary 12/06/23 16:20 Blood - Blood Aerobic Blood Culture - Preliminary 12/06/23 16:20 Blood - Blood Blood Culture Gram Stain - Preliminary 12/06/23 16:20 Blood - Blood Anaerobic Blood Culture - Preliminary No growth in 24 hours. Assessment/ Plan: Nephrology Limited IH/ ROS due to AMS No acute events overnight Vitals, medications, blood work and imaging reviewed in the chart General: Delirious HEENT: Atraumatic Neck: Supple Respiratory: Clear to auscultation bilaterally, Normal air movement Cardiovascular: No edema, Regular rate/rhythm Gastrointestinal: Non-distended, No guarding Musculoskeletal: No clubbing, No warmth Integumentary: No rashes, No cyanosis Neurological: Abnormal speech Laboratory Data (last 24 hrs) 12/06/23 12/06/23 12/06/23 16:20 16:20 16:20 WBC 3.60 L Hgb 11.9 L Hct 37.3 Plt Count 59 L PT 13.3 H INR 1.19 APTT 26.7 Sodium 152 H* Potassium 2.8 L BUN 53 H Creatinine 1.35 H Glucose 115 H Total Bilirubin 1.3 H AST 16 ALT 26 Alkaline Phosphatase 50 Imagings Data: EXAM DESCRIPTION: Nathant Single View12/06/2023 4:34 pm CLINICAL HISTORY: Confusion COMPARISON: September 2023 FINDINGS: The lungs appear clear of acute infiltrate. The heart is mildly enlarged. Pacemaker leads are in place. IMPRESSION: No acute abnormalities displayed EXAM DESCRIPTION: CT - Head Brain Wo Cont - 12/06/2023 4:40 pm CLINICAL HISTORY: Alteration of awareness/confusion COMPARISON: August 2023 TECHNIQUE: Computed axial tomography of the head was obtained. IV contrast was not requested. All CT scans are performed using dose optimization technique as appropriate and may include automated exposure control or mA/KV adjustment according to patient size. FINDINGS: An intracranial bleed is not seen The ventricles are normal in caliber No extra-axial fluid collection is noted. Prominent cerebral atrophy Mild low-density areas within periventricular, deep and subcortical white matter likely represent ischemic changes secondary to small vessel disease. Fluid within the sinuses/ mastoids is not seen. IMPRESSION: No acute intracranial abnormality is seen If patient's symptoms persist MRI of the brain would be recommended Conclusions/Impression: Hypernatremia with encephalopathy -Change IVF to D5W Hypokalemia -Replete as ordered Hypomagnesemia -Replete as ordered Hypophosphatemia -Replete as ordered DM II with CKD/ Proteinuria -RISS prn Hypoalbuminemia -Advance nutrition as tolerated Anemia in chronic illness -Monitor H&H -PRBC prn Hypothyroidism, uncontrolled -Continue IV Levothyroxine Acute Cystitis with Hematuria Proteinuria -Follow up urine culture Case reviewed with Dr. Worthy
[2023-12-08] MEDS: POTASSIUM PHOS IN 0.9 % NACL 15 MMOL/250 ML BAG IV ONE (23:11)
[2023-12-09 05:53] LABS: Absolute Basophils 0.1 K/uL (0-0.5); Absolute Eosinophils 0.1 K/uL (0-0.5); Absolute Lymphocytes (CBC) 0.4 K/uL (0.7-4.9); Absolute Monocytes 0.2 K/uL (0.1-1.3); Absolute Neutrophil 2.5 K/uL (1.8-8.0); Basophils % 1.7 % (0-1.3); Eosinophils % 3.7 % (0-4.4); Hematocrit 33.2 % (36.0-45.0); Lymphocytes % 12.1 % (15.3-44.8); MCH 31.9 pg (27.0-35.0); MCV 96.5 fL (80-100); MPV 10.8 fL (7.6-11.3); Neutrophils % 75.5 % (41.7-73.7); Nucleated Red Blood Cells % 0.4 % (0-0); Platelets 64 thou/uL (152-406); RBC Red Blood Cell Count 3.44 M/uL (3.86-4.86); Red Cell Distribution Width 17.5 % (12.1-15.2)
[2023-12-09 06:19] LABS: Albumin 2.8 g/dL (3.4-5.0); Albumin/Globulin Ratio 0.9 (1.1-1.8); Anion Gap 10.1 mEq/L (5.0-15.0); Bilirubin Direct 0.4 mg/dL (0-0.2); Bilirubin Indirect, Calculated 0.5 mg/dL (0.2-0.8); Bilirubin Total 0.9 mg/dL (0.2-1.0); Globulin 3.1 g/dL (2.3-3.5); Phosphorus 2.7 mg/dL (2.5-4.9); Potassium 4.1 mEq/L (3.5-5.1); Protein, Total 5.9 g/dL (6.4-8.2)
[2023-12-09 08:55] LABS: Anisocytosis 1+; Blood Morphology Comment NOTED (NOT SEEN); Platelet Estimate DECR; Poikilocytosis 2+; White Blood Cell Scan OK (OK)
--- NOTE | 2023-12-09 10:53 | P.PN ---
Date of Service: 12/09/23 Subjective: remains confused / tired similar to yesterday. seems to be more easily arousable / understanding me and following smple commands - opens eyes / opens mouth, shakes head no still mostly unintelligible mumbling. afebrile ROS: 10 point ROS as noted above, otherwise negative Physical Exam: GEN: arousable to verbal stimuli, mumbles, follows basic commands as above CV: Regular rate and rhythm, no edema Pulm: Nonlabored respirations on room air, clear bilaterally, diminished ABD: soft, mild discomfort with palpation, nondistended Neuro: somnolent, moves all extremities spontaneously, awakens to verbal stimuli chavez draining kj urine (placed in ED) Problem List: Severe Hypernatremia secondary to hypovolemia Toxic Encephalopathy Hypokalemia, Hypomagnesemia, Hypophosphatemia ALCIDES Gram positive bacteremia Hematuria NIDDM2 Hypothyroidism thrombocytopenia Dementia hx DVT/PE; unprovoked Severe Hypernatremia secondary to hypovolemia Toxic Encephalopathy Hypokalemia, Hypomagnesemia, Hypophosphatemia ALCIDES, prerenal family reports increased confusion recently, fatigue, drowsiness over the last few days. +decreased PO intake replete electrolytes nephrology consulted daily labs oliguria, secondary to dehydration, improving continue d5w slowly improving Gram positive bacteremia Hematuria urine dark brown coca-cola colored. Possibly from dehydration vs trauma from chavez catheter placed in ED UA suspicious for UTI, however unable to get accurate history from patient continue empiric rocephin for now (12/06-) vanc added 12/07 when blood cx resulted positive Urine cx (12/06): mixed meche; >100k cfu/ml Blood cx: (12/05): GPC prelim in 3/4 bottles this morning ID consulted repeat blood cx 12/08 ordered NIDDM2 accu-cheks, SSI Hypothyroidism ?mild myxedema coma TSH significantly elevated 61.5 (12/05) encephalopathy, slightly lower temps but not fully hypothermic, BP soft as well all could be hypovolemia / hypernatremia, but could have component of myxedema coma as well unclear how long patient has been off her meds, and TSH significantly elevated and low free T4 needs IV synthroid for now, transition to PO once more awake/alert thrombocytopenia Daily labs. Continue to monitor. Dementia hx DVT/PE; unprovoked confirm home meds, restart as appropriate med list currently blank VTE: Lovenox Code: DNR Dispo: Home vs SNF ~ 3-4 days pending stability/improvement of renal function/electrolytes, blood cultures Time Spent Managing Pts Care (In Minutes): 52
--- NOTE | 2023-12-09 20:59 | P.PN ---
Date of Service: 12/09/23 Vital Signs Temp Pulse Resp BP Pulse Ox 96.2 F L 76 16 123/77 97 12/09/23 20:00 12/09/23 20:00 12/09/23 20:00 12/09/23 16:00 12/09/23 20:00 Medications Acetaminophen (Acetaminophen 500 Mg Tab) 500 mg PO Q6H PRN PRN Reason: TEMP > 100' F Enoxaparin Sodium (Enoxaparin 40 Mg/0.4 Ml) 40 mg SQ DAILY [facility] Last Admin: 12/09/23 07:49 Dose: 40 mg Hydralazine HCl (Hydralazine Hcl 20 Mg/Ml Vial) 10 mg IV Q6HP PRN PRN Reason: Titrate to SBP (MUST DEFINE) Dextrose/Water (Dextrose In Water (1-Liter)) 1,000 mls @ 100 mls/hr IV .Q10H [facility] Last Admin: 12/09/23 20:44 Dose: 1,000 mls Ceftriaxone Sodium 1,000 mg/ (Sodium Chloride) 50 mls @ 100 mls/hr IVPB DAILY [facility]; Protocol Last Admin: 12/09/23 07:50 Dose: 50 mls Vancomycin HCl 1.25 gm/ Sodium (Chloride) 250 mls @ 166.667 mls/hr IVPB Q36H [facility]; Protocol Last Admin: 12/08/23 16:34 Dose: 250 mls Levothyroxine Sodium (Levothyroxine Sodium 100 Mcg Vial) 75 mcg IV [id number] [facility] Last Admin: 12/09/23 05:34 Dose: Not Given Morphine Sulfate (Morphine 2 Mg/Ml Syr) 2 mg IV Q4H PRN PRN Reason: Pain scale 5-7 (Moderate) Mupirocin (Mupirocin Nasal 2 Appl/1 Gm Tube) 1 appl EDMUNDO BID [facility] Stop: 12/12/23 09:01 Last Admin: 12/09/23 20:41 Dose: 1 appl Ondansetron HCl (Ondansetron 4 Mg/2 Ml Vial) 4 mg IV Q8H PRN PRN Reason: NAUSEA / VOMITING Sterile Water (Water For Inj,Sterile 10 Ml) 1.2 ml IM UD PRN PRN Reason: DILUTION OF MED Ziprasidone (Ziprasidone Mesyla 20 Mg/Vial) 10 mg IM Q12H PRN PRN Reason: DEMENTIA Microbiology Results 12/06/23 16:20 Blood - Blood Aerobic Blood Culture - Preliminary 12/06/23 16:20 Blood - Blood Blood Culture Gram Stain - Preliminary 12/06/23 16:20 Blood - Blood Anaerobic Blood Culture - Preliminary No growth in 24 hours. 12/06/23 18:16 Blood - Blood Aerobic Blood Culture - Preliminary 12/06/23 18:16 Blood - Blood Blood Culture Gram Stain - Final 12/06/23 18:16 Blood - Blood Anaerobic Blood Culture - Preliminary 12/06/23 18:16 Blood - Blood Gram Stain - Final Assessment/ Plan: Nephrology Limited IH/ ROS due to AMS No acute events overnight Vitals, medications, blood work and imaging reviewed in the chart General: Delirious HEENT: Atraumatic Neck: Supple Respiratory: Clear to auscultation bilaterally, Normal air movement Cardiovascular: No edema, Regular rate/rhythm Gastrointestinal: Non-distended, No guarding Musculoskeletal: No clubbing, No warmth Integumentary: No rashes, No cyanosis Neurological: Abnormal speech Laboratory Data (last 24 hrs) 12/06/23 12/06/23 12/06/23 16:20 16:20 16:20 WBC 3.60 L Hgb 11.9 L Hct 37.3 Plt Count 59 L PT 13.3 H INR 1.19 APTT 26.7 Sodium 152 H* Potassium 2.8 L BUN 53 H Creatinine 1.35 H Glucose 115 H Total Bilirubin 1.3 H AST 16 ALT 26 Alkaline Phosphatase 50 Imagings Data: EXAM DESCRIPTION: Coreen Single View12/06/2023 4:34 pm CLINICAL HISTORY: Confusion COMPARISON: September 2023 FINDINGS: The lungs appear clear of acute infiltrate. The heart is mildly enlarged. Pacemaker leads are in place. IMPRESSION: No acute abnormalities displayed EXAM DESCRIPTION: CT - Head Brain Wo Cont - 12/06/2023 4:40 pm CLINICAL HISTORY: Alteration of awareness/confusion COMPARISON: August 2023 TECHNIQUE: Computed axial tomography of the head was obtained. IV contrast was not requested. All CT scans are performed using dose optimization technique as appropriate and may include automated exposure control or mA/KV adjustment according to patient size. FINDINGS: An intracranial bleed is not seen The ventricles are normal in caliber No extra-axial fluid collection is noted. Prominent cerebral atrophy Mild low-density areas within periventricular, deep and subcortical white matter likely represent ischemic changes secondary to small vessel disease. Fluid within the sinuses/ mastoids is not seen. IMPRESSION: No acute intracranial abnormality is seen If patient's symptoms persist MRI of the brain would be recommended Conclusions/Impression: Hypernatremia with encephalopathy -Change IVF to D5W1/2NS Hypokalemia -Replete prn Hypomagnesemia -Replete as ordered Hypophosphatemia -Replete prn DM II with CKD/ Proteinuria -RISS prn Hypoalbuminemia -Advance nutrition as tolerated Anemia in chronic illness -Monitor H&H -PRBC prn Hypothyroidism, uncontrolled -Continue IV Levothyroxine Bacteremia -Continue Abx -ID following Case reviewed with Dr. Worthy
[2023-12-10] MEDS: D5 0.45 NS 1,000 ML IV SCH (01:07)
[2023-12-10 06:38] LABS: Hematocrit 35.7 % (36.0-45.0); Hemoglobin 11.9 g/dL (12.0-15.0); MCH 31.7 pg (27.0-35.0); MCHC 33.3 g/dL (32.0-36.0); MCV 95.2 fL (80-100); MPV 11.2 fL (7.6-11.3); Platelets 11 thou/uL (152-406); RBC Red Blood Cell Count 3.75 M/uL (3.86-4.86); Red Cell Distribution Width 17.3 % (12.1-15.2)
[2023-12-10 06:51] LABS: Albumin 2.9 g/dL (3.4-5.0); Anion Gap 14.1 mEq/L (5.0-15.0); Phosphorus 1.8 mg/dL (2.5-4.9); Potassium 4.1 mEq/L (3.5-5.1)
[2023-12-10 07:26] LABS: Blood Morphology Comment NOT SEEN (NOT SEEN); Platelet Estimate DECR; White Blood Cell Scan OK (OK)
--- NOTE | 2023-12-10 08:43 | P.PN ---
Date of Service: 12/10/23 Subjective: remains confused / tired similar to yesterday. Sleeping most of the day follows some basic commands when awake. seems more easily arousable last 1-2 days urine color lightening up and UOP improving family updated at bedside afebrile ROS: 10 point ROS as noted above, otherwise negative Physical Exam: GEN: arousable to verbal stimuli, mumbles, follows basic commands as above CV: Regular rate and rhythm, no edema Pulm: Nonlabored respirations on room air, clear bilaterally, diminished ABD: soft, mild discomfort with palpation, nondistended Neuro: somnolent, moves all extremities spontaneously, awakens to verbal stimuli chavez draining light yellow urine (placed in ED) Problem List: Severe Hypernatremia secondary to hypovolemia Toxic Encephalopathy Hypokalemia, Hypomagnesemia, Hypophosphatemia ALCIDES, prerenal Gram positive bacteremia Hematuria, resolved NIDDM2 Hypothyroidism thrombocytopenia Dementia hx DVT/PE; unprovoked hx CVA Severe Hypernatremia secondary to hypovolemia Toxic Encephalopathy Hypokalemia, Hypomagnesemia, Hypophosphatemia ALCIDES, prerenal family reports increased confusion recently, fatigue, drowsiness over the last few days. +decreased PO intake daily labs. replete electrolytes nephrology consulted oliguria, secondary to dehydration, improving IVF adjusted 12/09 slowly improving Family agreeable to PICC for supplemental nutrition/PPN/TPN; ordered 12/09 Start PPN/TPN once PICC in place Gram positive bacteremia Hematuria, resolved urine dark brown coca-cola colored. Possibly from dehydration vs trauma from chavez catheter placed in ED urine lightening up, +UOP improving UA suspicious for UTI, however unable to get accurate history from patient continue empiric rocephin for now (12/06-) continue empiric vanc (12/07-); added when blood cx resulted positive Urine cx (12/06): mixed meche; >100k cfu/ml Blood cx: (12/05): GPC prelim in 3/4 bottles ID consulted repeat blood cx (12/08): pending NIDDM2 accu-cheks, SSI Hypothyroidism ?mild myxedema coma TSH significantly elevated 61.5 (12/05) encephalopathy, slightly lower temps but not fully hypothermic, BP soft as well all could be hypovolemia / hypernatremia, but could have component of myxedema coma as well unclear how long patient has been off her meds, and TSH significantly elevated and low free T4 needs IV synthroid for now, transition to PO once more awake/alert thrombocytopenia Daily labs. Continue to monitor. Dementia hx DVT/PE; unprovoked hx CVA confirm home meds, restart as appropriate med list currently blank VTE: Lovenox Code: DNR Dispo: Home vs SNF ~3-4 days pending stability/improvement of renal function/electrolytes, blood cultures Time Spent Managing Pts Care (In Minutes): 52
[2023-12-10] MEDS: POTASSIUM PHOS IN 0.9 % NACL 15 MMOL/250 ML BAG IV ONE (10:17)
[2023-12-10] MEDS: VANCOMYCIN 1.25 GM in NA CHLORIDE 0.9% 250 ML IVPB SCH (10:17)
--- NOTE | 2023-12-10 11:49 | P.PN ---
Nephrology Pt remains lethargic, non verbal, remains on IVF, no reports of dyspnea No acute events overnight Vitals, medications, blood work and imaging reviewed in the chart General: Lethargic but NAD HEENT: Atraumatic, not on O2 Respiratory: No distress, non tachypnec, no wheezing Cardiovascular: No sig edema, Regular rate/rhythm mostly Gastrointestinal: Non-distended, No guarding, non tender, chavez present Musculoskeletal: Shins non tender Integumentary: No rashes Neurological: Opens eyes briefly to sternal rub, non verbal, no tremors or myoclonus noted Imagings Data: EXAM DESCRIPTION: Coreen Single View12/06/2023 4:34 pm CLINICAL HISTORY: Confusion COMPARISON: September 2023 FINDINGS: The lungs appear clear of acute infiltrate. The heart is mildly enlarged. Pacemaker leads are in place. IMPRESSION: No acute abnormalities displayed EXAM DESCRIPTION: CT - Head Brain Wo Cont - 12/06/2023 4:40 pm CLINICAL HISTORY: Alteration of awareness/confusion COMPARISON: August 2023 TECHNIQUE: Computed axial tomography of the head was obtained. IV contrast was not requested. All CT scans are performed using dose optimization technique as appropriate and may include automated exposure control or mA/KV adjustment according to patient size. FINDINGS: An intracranial bleed is not seen The ventricles are normal in caliber No extra-axial fluid collection is noted. Prominent cerebral atrophy Mild low-density areas within periventricular, deep and subcortical white matter likely represent ischemic changes secondary to small vessel disease. Fluid within the sinuses/ mastoids is not seen. IMPRESSION: No acute intracranial abnormality is seen If patient's symptoms persist MRI of the brain would be recommended Conclusions/Impression: Hypernatremia with encephalopathy -Resolved, Na level 134 this AM although slightly higher after correction for BG. D/c hypotonic IVF nonetheless, switch to LR which can be stopped once PPN/TPN starts Hypokalemia -Resolved Hypophosphatemia -Agree with K-Phos IV AMS, encephalopathy unspecified -Toxic-metab, other -cont to monitor closely with management per IM
[2023-12-10] MEDS: Ringers Lactate 1,000 ML IV SCH (12:25)
--- NOTE | 2023-12-10 14:33 | PN ---
Subjective: The patient is lying in bed, somnolent, not in any acute distress. Objective: Vital Signs: Temperature 96, pulse 50, respirations 16, blood pressure 100/60. Lungs: Basal crackles. Heart: S1, S2. Regular. Abdomen: Soft, nontender. Bowel sounds present. Extremities: No edema. Laboratory Data: WBC 1.3, hemoglobin 11.9, platelets are 11. Concern regarding lab error. Repeat C BC. Chemistry shows BUN of 23, creatinine 1. Micro Data: Cultures are negative to date. Repeat blood culture from today are pending. Assessment And Plan: The patient is on vancomycin and Rocephin, vancomycin, we will discontinue that and start patient on cefepime 1 g q.12 hours. Continue supportive care and monitor for any signs of infection with WBC and fever trends. No other recommendation at this time. NF/MODL Voice ID: [id number] Report ID: [id number]
[2023-12-10] MEDS ORDERED: DEXTROSE 10%-WATER 500 ML IV SCH (15:00)
[2023-12-10] MEDS ORDERED: AA 5%/D20W/ELECTROLYTES-TPN 2,000 ML, Lipids 20% 250 ML with MULTIVITAMINS INJ 10 ML IV SCH (17:00)
--- NOTE | 2023-12-10 17:08 | RAD REPORT ---
EXAM: Bilateral upper extremity venous ultrasound HISTORY: Bilateral upper extremity pain and edema COMPARISON: None TECHNIQUE: Multiplanar grayscale and color Doppler images were obtained in a bilateral upper extremit y venous ultrasound. Spectral analysis of the Doppler waveforms were performed. FINDINGS: The internal jugular vein demonstrates normal compression and flow without evidence of thrombus. The subclavian vein demonstrates normal flow and augmentation without evidence of thrombus. The axillary and brachial veins demonstrate normal compression, flow, and augmentation without eviden ce of thrombus. The venous structures distal to the elbow are patent without thrombus. The left cephalic vein is incompletely compressible and thrombosed. The right mid and distal cephalic vein is incompletely compressible and thrombosed. IMPRESSION: Positive for venous thrombosis of the right and left cephalic veins. Conveyed to Dr. Worthy by Dr. Sanchez at 1705 on 12/10/23
[2023-12-10] MEDS: AA 4.25 %/D5W/ELECTROLYTES 2,000 ML, Lipids 20% 250 ML with MULTIVITAMINS INJ 10 ML IV SCH (17:15)
--- NOTE | 2023-12-10 18:43 | P.OP ---
Preoperative diagnosis: Need for IV Access Postoperative diagnosis: Need for IV Access Primary procedure: Placement of RIGHT Femoral Central Line Secondary procedure: microintroducer used Anesthesia: 1% lidocaine Estimated blood loss: 2cc Specimen: none Findings: dark, non-pulsatile blood returned Complications: None Implants: Triple lumen catheter Transferred to: Other (room) Condition: Good
[2023-12-10 19:38] LABS: Absolute Eosinophils 0.1 K/uL (0-0.5); Absolute Lymphocytes (CBC) 0.3 K/uL (0.7-4.9); Absolute Monocytes 0.2 K/uL (0.1-1.3); Absolute Neutrophil 1.9 K/uL (1.8-8.0); Basophils % 1.2 % (0-1.3); Eosinophils % 3.1 % (0-4.4); Hematocrit 33.9 % (36.0-45.0); Hemoglobin 11.3 g/dL (12.0-15.0); Lymphocytes % 12.2 % (15.3-44.8); MCH 31.6 pg (27.0-35.0); MCHC 33.4 g/dL (32.0-36.0); MCV 94.8 fL (80-100); MPV 10.7 fL (7.6-11.3); Monocytes % 6.8 % (3.3-12.3); Neutrophils % 76.7 % (41.7-73.7); Nucleated Red Blood Cells % 0.5 % (0-0); Platelets 71 thou/uL (152-406); RBC Red Blood Cell Count 3.58 M/uL (3.86-4.86); Red Cell Distribution Width 17.7 % (12.1-15.2)
[2023-12-10 19:59] LABS: Albumin 2.5 g/dL (3.4-5.0); Albumin/Globulin Ratio 0.7 (1.1-1.8); Anion Gap 12.8 mEq/L (5.0-15.0); Bilirubin Total 0.8 mg/dL (0.2-1.0); Globulin 3.4 g/dL (2.3-3.5); Potassium 3.8 mEq/L (3.5-5.1); Protein, Total 5.9 g/dL (6.4-8.2)
[2023-12-10] MEDS: CEFEPIME 1 GM in NA CHLORIDE 0.9% 100 ML IV SCH (20:21)
[2023-12-10] MEDS: Mupirocin NASAL 2 APPL/1 GM TUBE NAS SCH (20:22)
[2023-12-11 05:28] LABS: Absolute Eosinophils 0.1 K/uL (0-0.5); Absolute Lymphocytes (CBC) 0.3 K/uL (0.7-4.9); Absolute Monocytes 0.2 K/uL (0.1-1.3); Absolute Neutrophil 2.2 K/uL (1.8-8.0); Basophils % 1.6 % (0-1.3); Eosinophils % 2.7 % (0-4.4); Hematocrit 31.4 % (36.0-45.0); Hemoglobin 10.8 g/dL (12.0-15.0); Lymphocytes % 10.1 % (15.3-44.8); MCH 32.6 pg (27.0-35.0); MCHC 34.5 g/dL (32.0-36.0); MCV 94.5 fL (80-100); MPV 10.7 fL (7.6-11.3); Monocytes % 6.5 % (3.3-12.3); Neutrophils % 79.1 % (41.7-73.7); Nucleated Red Blood Cells % 0.4 % (0-0); Platelets 72 thou/uL (152-406); RBC Red Blood Cell Count 3.32 M/uL (3.86-4.86); Red Cell Distribution Width 16.8 % (12.1-15.2)
[2023-12-11 05:44] LABS: Albumin 2.5 g/dL (3.4-5.0); Albumin/Globulin Ratio 0.8 (1.1-1.8); Anion Gap 10.8 mEq/L (5.0-15.0); Bilirubin Total 0.7 mg/dL (0.2-1.0); Globulin 3.1 g/dL (2.3-3.5); Phosphorus 2.9 mg/dL (2.5-4.9); Potassium 3.8 mEq/L (3.5-5.1); Protein, Total 5.6 g/dL (6.4-8.2)
[2023-12-11] MEDS: KCL 20 MEQ/100 mL IVPB 20 MEQ/100 ML BAG IV SCH (07:39)
--- NOTE | 2023-12-11 09:01 | P.PN ---
Date of Service: 12/11/23 Subjective: more alert/interactive today More talkative. Able to respond to questions with few words / short sentences. able to tell me her full name today. says shes in pain but couldn't elaborate afebrile ROS: 10 point ROS as noted above, otherwise negative Physical Exam: GEN: more awake/alert, responding to some questions in few words. CV: Regular rate and rhythm, trace lower extremity edema Pulm: Nonlabored respirations on room air, clear bilaterally, diminished ABD: soft, mild discomfort with palpation, nondistended Neuro: somnolent, moves all extremities spontaneously, awakens to verbal stimuli chavez draining light yellow urine (placed in ED) Problem List: Severe Hypernatremia secondary to hypovolemia Toxic Encephalopathy Hypokalemia, Hypomagnesemia, Hypophosphatemia ALCIDES, prerenal Staph Hominis bacteremia Hematuria, resolved NIDDM2 Hypothyroidism thrombocytopenia, chronic Dementia Bilateral cephalic vein thrombus (12/10/23) hx DVT/PE; unprovoked hx CVA Severe Hypernatremia secondary to hypovolemia Toxic Encephalopathy Hypokalemia, Hypomagnesemia, Hypophosphatemia ALCIDES, prerenal family reports increased confusion recently, fatigue, drowsiness over the last few days. +decreased PO intake nephrology consulted oliguria, secondary to dehydration, improving Family agreeable to PICC for supplemental nutrition/PPN/TPN; PICC nurse unable to place picc due to resistance Dr. Beaulieu placed central line 12/09 switch ppn to TPN via central line Improving steadily each day Staph Hominis bacteremia Hematuria, resolved urine dark brown coca-cola colored on admission. Possibly from dehydration vs trauma from chavez catheter placed in ED urine lightening up, +UOP improving UA suspicious for UTI, however unable to get accurate history from patient rocephin / vanc (12/06-12/09) switched to IV cefepime (12/09-12/10) per ID d/t low platelets however was found be to erroneous lab results (plt stable in ~70s but reported <15 at the time) switch IV cefepime to IV vanc (12/10-) given culture results Urine cx (12/06): mixed meche; >100k cfu/ml Blood cx: (12/05): Staph Hominis in 3/4 bottles ID consulted repeat blood cx (12/08): pending NIDDM2 accu-cheks, SSI Hypothyroidism ?mild myxedema coma TSH significantly elevated 61.5 (12/05) encephalopathy, slightly lower temps but not fully hypothermic, BP soft as well all could be hypovolemia / hypernatremia, but could have component of myxedema coma as well unclear how long patient has been off her meds, and TSH significantly e levated and low free T4 daughter states has been off meds since ~may 2023, she took over care of her mom from sibling, and she was not given any medical information needs IV synthroid for now, transition to PO once more awake/alert / able to tolerate PO thrombocytopenia, chronic Daily labs. Continue to monitor. Plts stable ~70s Dementia hx DVT/PE; unprovoked hx CVA confirm home meds, restart as appropriate med list currently blank VTE: Lovenox Code: DNR Dispo: Home vs SNF ~3-4 days pending stability/improvement, repeat blood cx without growth Time Spent Managing Pts Care (In Minutes): 52
--- NOTE | 2023-12-11 11:45 | OP ---
Date of Procedure: 12/10/2023 Surgeon: Lc Beaulieu MD, Preoperative Diagnosis: Need for IV access and IV medications and blood draw. Postoperative Diagnosis: Need for IV access and IV medications and blood draw. Procedure: Placement of a right femoral central venous catheter using a microintroducer and ultrasou nd utilized. Anesthesia: 1% lidocaine without epinephrine. Estimated Blood Loss: Less than 2 cc. Specimens: None. Findings: Dark nonpulsatile blood returned. Complications: None. Implants: Triple-lumen catheter. Disposition: The patient remained in the room in good condition throughout the procedure. Procedure In Detail: After informed consent was obtained, the patient was prepped and draped in the usual sterile fashion after adequate anesthesia was achieved. I cannulated the right femoral vein us ing ultrasound guidance on the first attempt using a microintroducer set down to subcutaneous tissues into the vein. At this point, dark red nonpulsatile blood returned. I advanced a micro wire at thi s point without incident or complication under visualization. I then made a small mohan incision over lying this and advanced a microintroducer sheath overlying this. Dark red nonpulsatile blood was onc e again returned. Micro wire was removed. Standard wire was advanced at this point using Seldinger technique. Ultimately, I removed the introducer sheath at this point, performed sequential dilatatio n and placed catheter in the right femoral vein without evidence of complication. The wire was sewell d for the second time. Dark red nonpulsatile blood was returned from all 3 ports. They all withdrew dark red nonpulsatile blood and were flushed until completely clear with sterile saline. This maria r ter was then secured to the skin using the attached 3-0 silk suture and a sterile dressing was placed over top. After sterilizing the area once again, patient tolerated the procedure without incident o r Complications, remained in the room in good condition throughout the procedure. All counts were nany ect at the end of the case. TK/MODL Voice ID: [id number] Report ID: [id number]
[2023-12-11] MEDS: VANCOMYCIN 1.25 GM in NA CHLORIDE 0.9% 250 ML IVPB SCH (12:33)
[2023-12-11] MEDS: AMINO ACIDS 5 %/DEXTROSE 20 % 2,000 ML IV SCH (16:43)
[2023-12-11] MEDS ORDERED: AA 4.25 %/D5W/ELECTROLYTES 2,000 ML IV SCH (17:00)
[2023-12-11] MEDS ORDERED: AA 5%/D20W/ELECTROLYTES-TPN 2,000 ML IV SCH (17:00)
[2023-12-12] MEDS ORDERED: GLUCAGON 1 MG/VIAL IM PRN (00:22)
[2023-12-12] MEDS ORDERED: D10W 125 ML IV PRN (00:22)
[2023-12-12] MEDS: INSULIN REGULAR (HUMAN) 100 UNIT/ML SQ SCH (00:43)
[2023-12-12 06:39] LABS: Hematocrit 33.2 % (36.0-45.0); Hemoglobin 10.7 g/dL (12.0-15.0); MCH 31.3 pg (27.0-35.0); MCHC 32.4 g/dL (32.0-36.0); MCV 96.7 fL (80-100); MPV 11.2 fL (7.6-11.3); Platelets 74 thou/uL (152-406); RBC Red Blood Cell Count 3.43 M/uL (3.86-4.86); Red Cell Distribution Width 17.8 % (12.1-15.2)
[2023-12-12 06:50] LABS: Albumin 2.6 g/dL (3.4-5.0); Albumin/Globulin Ratio 0.8 (1.1-1.8); Anion Gap 9.7 mEq/L (5.0-15.0); Bilirubin Total 0.7 mg/dL (0.2-1.0); Globulin 3.1 g/dL (2.3-3.5); Magnesium 1.9 mg/dL (1.6-2.4); Phosphorus 1.8 mg/dL (2.5-4.9); Potassium 3.7 mEq/L (3.5-5.1); Protein, Total 5.7 g/dL (6.4-8.2)
[2023-12-12] MEDS: POTASSIUM PHOS IN 0.9 % NACL 15 MMOL/250 ML BAG IV ONE (09:12)
--- NOTE | 2023-12-12 09:34 | P.PN ---
Date of Service: 12/12/23 Subjective: no new issues overnight family updated at bedside arousable, opens eyes, says a few words afebrile ROS: 10 point ROS as noted above, otherwise negative Physical Exam: GEN: AOx1, responding to some questions in few words. CV: Regular rate and rhythm, trace lower extremity edema Pulm: Nonlabored respirations on room air, clear bilaterally, diminished ABD: soft, mild discomfort with palpation, nondistended Neuro: somnolent, moves all extremities spontaneously, awakens to verbal stimuli chavez draining light yellow urine (placed in ED) Problem List: Severe Hypernatremia secondary to hypovolemia Toxic Encephalopathy Hypokalemia, Hypomagnesemia, Hypophosphatemia ALCIDES, prerenal Staph Hominis bacteremia Hematuria, resolved Hypothyroidism ?mild myxedema coma Bilateral cephalic vein thrombus (12/10/23) hx DVT/PE; unprovoked; s/p IVC filter thrombocytopenia, chronic NIDDM2 Dementia hx CVA Severe Hypernatremia secondary to hypovolemia Toxic Encephalopathy Hypokalemia, Hypomagnesemia, Hypophosphatemia ALCIDES, prerenal family reports increased confusion recently, fatigue, drowsiness over the last few days. +decreased PO intake nephrology consulted oliguria, secondary to dehydration, improving PICC nurse unable to place picc due to resistance Dr. Beaulieu placed central line 12/09 continue TPN via central line Improving steadily each day, slowly Staph Hominis bacteremia Hematuria, resolved UA suspicious for UTI, however unable to get accurate history from patient previously on rocephin / vanc (12/06-12/09); switched to IV cefepime (12/09-12/10) per ID d/t low platelets however was found be to erroneous lab results (plt stable in ~70s but reported <15 at the time) switched IV cefepime to IV vanc (12/10-) given culture results Urine cx (12/06): mixed meche; >100k cfu/ml Blood cx: (12/05): Staph Hominis in 3/4 bottles ID consulted repeat blood cx (12/08): NGTD Hypothyroidism ?mild myxedema coma TSH significantly elevated 61.5 (12/05) encephalopathy, slightly lower temps but not fully hypothermic, BP soft as well all could be hypovolemia / hypernatremia, but could have component of myxedema coma as well unclear how long patient has been off her meds, and TSH significantly elevated and low free T4 daughter states has been off meds since ~may 2023, she took over care of her mom from sibling, and she was not given any medical information needs IV synthroid for now, transition to PO once more awake/alert / able to tolerate PO Bilateral cephalic vein thrombus (12/10/23) hx DVT/PE; unprovoked ; s/p IVC filter confirm home meds, restart as appropriate med list currently blank extremity u/s (12/09): +DVT of right and left cephalic veins unknown acuity has been on lovenox 40 mg daily has been off meds since early 2023 per family (~mar-may) Previously on warfarin for several years. unsure why blood thinners were stopped. Suspect secondary to transfer of care as new family had inherited her care early in the year. thrombocytopenia, chronic Daily labs. Continue to monitor. Plts stable ~70s NIDDM2 accu-cheks, SSI with hyperglycemia secondary to TPN Start Semglee 12/11 Dementia hx CVA confirm home meds, restart as appropriate VTE: Lovenox Code: DNR Dispo: Home vs SNF ~3-4 days pending stability/improvement, repeat blood cx without growth Time Spent Managing Pts Care (In Minutes): 52 Patient's most recent home med list that was available (taken from office visit 06/04/23):
[2023-12-12] MEDS: MORPHINE 2 MG/ML SYR IV PRN (10:15)
[2023-12-12] MEDS: KCL 20 MEQ/100 mL IVPB 20 MEQ/100 ML BAG IV SCH (11:36)
[2023-12-12] MEDS: INSULIN GLARGINE 100 UNIT/ML SQ SCH (20:32)
[2023-12-13 05:34] LABS: Hematocrit 30.2 % (36.0-45.0); Hemoglobin 9.9 g/dL (12.0-15.0); MCH 31.3 pg (27.0-35.0); MCHC 32.7 g/dL (32.0-36.0); MCV 95.7 fL (80-100); MPV 10.9 fL (7.6-11.3); Platelets 84 thou/uL (152-406); RBC Red Blood Cell Count 3.16 M/uL (3.86-4.86); Red Cell Distribution Width 17.3 % (12.1-15.2)
[2023-12-13 06:00] LABS: Albumin 2.5 g/dL (3.4-5.0); Albumin/Globulin Ratio 0.8 (1.1-1.8); Anion Gap 10.8 mEq/L (5.0-15.0); Bilirubin Total 0.7 mg/dL (0.2-1.0); Globulin 3.1 g/dL (2.3-3.5); Magnesium 1.9 mg/dL (1.6-2.4); Phosphorus 1.6 mg/dL (2.5-4.9); Potassium 3.8 mEq/L (3.5-5.1); Protein, Total 5.6 g/dL (6.4-8.2)
[2023-12-13] MEDS: POTASSIUM PHOS IN 0.9 % NACL 15 MMOL/250 ML BAG IV ONE (06:45)
--- NOTE | 2023-12-13 09:05 | P.PN ---
Date of Service: 12/13/23 Subjective: no issues / events overnight sleepy, drowsy. Opens eyes to verbal stimuli afebrile ROS: 10 point ROS as noted above, otherwise negative Physical Exam: GEN: AOx1, responding to some questions in few words. CV: Regular rate and rhythm, trace lower extremity edema Pulm: Nonlabored respirations on room air, clear bilaterally, diminished ABD: soft, mild discomfort with palpation, nondistended Neuro: somnolent, moves all extremities spontaneously, awakens to verbal stimuli chavez draining light yellow urine (placed in ED) Problem List: Severe Hypernatremia secondary to hypovolemia Toxic Encephalopathy Hypokalemia, Hypomagnesemia, Hypophosphatemia ALCIDES, prerenal Staph Hominis bacteremia, unknown source Hematuria, resolved Hypothyroidism ?mild myxedema coma Bilateral cephalic vein thrombus (12/10/23) hx DVT/PE; unprovoked; s/p IVC filter thrombocytopenia, chronic NIDDM2 Dementia hx CVA Severe Hypernatremia secondary to hypovolemia Toxic Encephalopathy Hypokalemia, Hypomagnesemia, Hypophosphatemia ALCIDES, prerenal family reports increased confusion recently, fatigue, drowsiness over the last few days. +decreased PO intake nephrology consulted oliguria, secondary to dehydration, improving PICC nurse unable to place picc due to resistance Dr. Beaulieu placed central line 12/09 continue TPN via central line Improving steadily each day, slowly CT head ordered to reeval Staph Hominis bacteremia, unknown source Hematuria, resolved UA suspicious for UTI, however unable to get accurate history from patient previously on rocephin / vanc (12/06-12/09); switched to IV cefepime (12/09-12/10) per ID d/t low platelets however was found be to erroneous lab results (plt stable in ~70s but reported <15 at the time) switched IV cefepime to IV vanc (12/10-) given culture results Blood cx: (12/05): Staph Hominis in 3/4 bottles urine cx (12/04): mixed meche ID consulted repeat blood cx (12/08): NGTD CT abdomen/pelvis ordered to further eval Hypothyroidism ?mild myxedema coma TSH significantly elevated 61.5 (12/05) encephalopathy, slightly lower temps but not fully hypothermic, BP soft as well all could be hypovolemia / hypernatremia, but could have component of myxedema coma as well unclear how long patient has been off her meds, and TSH significantly elevated and low free T4 daughter states has been off meds since ~may 2023, she took over care of her mom from sibling, and she was not given any medical information needs IV synthroid for now, transition to PO once more awake/alert / able to tolerate PO Bilateral cephalic vein thrombus (12/10/23) hx DVT/PE; unprovoked ; s/p IVC filter confirm home meds, restart as appropriate med list currently blank extremity u/s (12/09): +DVT of right and left cephalic veins unknown acuity has been on lovenox 40 mg daily has been off meds since early 2023 per family (~mar-may) Previously on warfarin for several years. unsure why blood thinners were stopped. Suspect secondary to transfer of care as new family had inherited her care early in the year. thrombocytopenia, chronic Daily labs. Continue to monitor. Plts stable ~70s NIDDM2 accu-cheks, SSI with hyperglycemia secondary to TPN continue Semglee; added 12/11 Dementia hx CVA confirm home meds, restart as appropriate VTE: Lovenox Code: DNR Dispo: Home vs SNF ~3-4 days pending stability/improvement, repeat blood cx without growth Time Spent Managing Pts Care (In Minutes): 52
--- NOTE | 2023-12-13 11:01 | RAD REPORT ---
EXAM: CT brain without contrast HISTORY: Confusion COMPARISON: December 06, 2023 TECHNIQUE: Multiple contiguous axial images were obtained and a CT of the brain without contrast. Sagittal and coronal reformats were performed. Automated exposure control, adjustment of the mA and/or kV according to patient size, and/or itera tive reconstruction. Unless otherwise specified, incidental findings do not require dedicated imaging follow-u FINDINGS: An intracranial bleed is not seen Ventricles are normal caliber No extra-axial fluid collection noted Mild low-density areas within periventricular, deep and subcortical white matter likely represent ischemic changes secondary to small vessel disease. No fluid within the visualized sinuses or mastoids noted. IMPRESSION: No acute intracranial abnormality noted. If the patient's symptoms persist MRI of the brain would be recommended.
--- NOTE | 2023-12-13 11:10 | RAD REPORT ---
EXAMINATION: CT ABDOMEN AND PELVIS WITH CONTRAST CLINICAL INDICATION: Abdominal pain and distention TECHNIQUE: CT abdomen and pelvis was performed, after the administration of 100 cc Isovue-300.. Sagit melvin and coronal reconstructions were obtained. One or more of the following dose reduction techniques were used: Automated exposure control, adjustment of the mA and/or kV according to patien t size, and/or iterative reconstruction. Unless otherwise specified, incidental findings do not require dedicated imaging follow-up. [id number].. Oral contrast not given which limits evaluation of apolonia l COMPARISON: none FINDINGS: Small right pleural effusion. Small hiatal hernia 3.1 cm hepatic cyst. Cholecystectomy Spleen, pancreas and adrenals unremarkable Bilateral renal cysts. Largest 6.5 cm. No hydronephrosis. There is no evidence of diverticulitis. Mild to moderate amount of stool within the colon. Blevins catheter within the bladder. Filter within the inferior vena cava. The superior aspect lies abo ve the level of the renal vein. Distal stomach wall appears thickened. Hysterectomy. No adnexal mass : IMPRESSION: Wall of the distal stomach appears thickened. This could be secondary to incomplete distention or inf lammation
[2023-12-13] MEDS ORDERED: SODIUM CHLORIDE 0.9% 10ML INJ IV PRN (11:24)
[2023-12-13] MEDS: AMINO ACIDS 5 %/DEXTROSE 20 % 2,000 ML, Lipids 20% 250 ML with MULTIVITAMINS INJ 10 ML IV SCH (16:51)
[2023-12-13] MEDS ORDERED: AA 5%/D20W/ELECTROLYTES-TPN 2,000 ML, Lipids 20% 250 ML with MULTIVITAMINS INJ 10 ML IV SCH (17:00)
--- NOTE | 2023-12-13 20:44 | P.PN ---
Date of Service: 12/13/23 Vital Signs Temp Pulse Resp BP Pulse Ox 96.8 F 88 18 122/80 92 12/13/23 20:00 12/13/23 20:00 12/13/23 20:00 12/13/23 20:00 12/13/23 20:00 Medications Acetaminophen (Acetaminophen 500 Mg Tab) 500 mg PO Q6H PRN PRN Reason: TEMP > 100' F Enoxaparin Sodium (Enoxaparin 40 Mg/0.4 Ml) 40 mg SQ DAILY [facility] Last Admin: 12/13/23 08:26 Dose: 40 mg Glucagon (Glucagon 1 Mg/Vial) 1 mg IM 1X PRN PRN Reason: HYPOGLYCEMIA Hydralazine HCl (Hydralazine Hcl 20 Mg/Ml Vial) 10 mg IV Q6HP PRN PRN Reason: FOR SBP>160 OR DBP>100 MMHG Dextrose (D10w 500 Ml Ivpb) 500 mls @ 0 mls/hr IV .Q0M [facility] Vancomycin HCl 1.25 gm/ Sodium (Chloride) 250 mls @ 166.667 mls/hr IVPB Q24H [facility]; Protocol Last Admin: 12/13/23 11:43 Dose: 250 mls Multivitamins 10 ml/ AMINO ACIDS 5 %/DEXTROSE 20 %/ Fat Emulsion Intravenous 2,260 mls @ 70 mls/hr IV M,W,F [facility] Last Admin: 12/13/23 16:51 Dose: 2,260 mls AMINO ACIDS 5 %/DEXTROSE 20 % (Clinimix 5%-20% Solution) 2,000 mls @ 70 mls/hr IV [id number] [facility] Last Admin: 12/12/23 17:01 Dose: 2,000 mls Dextrose (Dextrose 10% Water Iv Soln.) 125 mls @ 0 mls/hr IV PRN PRN; Protocol PRN Reason: HYPOGLYCEMIA Insulin Glargine (Insulin Glargine 100 Unit/Ml) 10 unit SQ BEDTIME [facility] Last Admin: 12/12/23 20:32 Dose: 10 unit Insulin Human Regular (Insulin Regular (Human) 100 Unit/Ml) 0 unit SQ ACHS [facility]; Protocol Last Admin: 12/13/23 16:30 Dose: Not Given Levothyroxine Sodium (Levothyroxine Sodium 100 Mcg Vial) 75 mcg IV [id number] [facility] Last Admin: 12/13/23 05:39 Dose: 75 mcg Mupirocin (Mupirocin Nasal 2 Appl/1 Gm Tube) 1 appl EDMUNDO BID JENNA Stop: 12/15/23 09:01 Last Admin: 12/13/23 08:26 Dose: 1 appl Ondansetron HCl (Ondansetron 4 Mg/2 Ml Vial) 4 mg IV Q8H PRN PRN Reason: NAUSEA / VOMITING Pantoprazole Sodium (Pantoprazole 40 Mg Inj) 40 mg IVP Q12HR JENNA; Protocol Sodium Chloride (Sodium Chloride 0.9% 10ml Inj) 10 ml IV UD PRN PRN Reason: Diluant Sterile Water (Water For Inj,Sterile 10 Ml) 1.2 ml IM UD PRN PRN Reason: DILUTION OF MED Ziprasidone (Ziprasidone Mesyla 20 Mg/Vial) 10 mg IM Q12H PRN PRN Reason: DEMENTIA Microbiology Results 12/06/23 16:20 Blood - Blood Aerobic Blood Culture - Final Staph Hominis 12/06/23 16:20 Blood - Blood Blood Culture Gram Stain - Final 12/06/23 16:20 Blood - Blood Anaerobic Blood Culture - Final No growth in 5 days. 12/06/23 18:16 Blood - Blood Aerobic Blood Culture - Final Staph Hominis 12/06/23 18:16 Blood - Blood Blood Culture Gram Stain - Final 12/06/23 18:16 Blood - Blood Anaerobic Blood Culture - Final Staphylococcus Hominis 12/06/23 18:16 Blood - Blood Gram Stain - Final Assessment/ Plan: Nephrology Limited IH/ ROS due to AMS No acute events overnight Vitals, medications, blood work and imaging reviewed in the chart General: Delirious HEENT: Atraumatic Neck: Supple Respiratory: Clear to auscultation bilaterally, Normal air movement Cardiovascular: No edema, Regular rate/rhythm Gastrointestinal: Non-distended, No guarding Musculoskeletal: No clubbing, No warmth Integumentary: No rashes, No cyanosis Neurological: Abnormal speech Laboratory Data (last 24 hrs) 12/06/23 12/06/23 12/06/23 16:20 16:20 16:20 WBC 3.60 L Hgb 11.9 L Hct 37.3 Plt Count 59 L PT 13.3 H INR 1.19 APTT 26.7 Sodium 152 H* Potassium 2.8 L BUN 53 H Creatinine 1.35 H Glucose 115 H Total Bilirubin 1.3 H AST 16 ALT 26 Alkaline Phosphatase 50 Imagings Data: EXAM DESCRIPTION: Coreen Single View12/06/2023 4:34 pm CLINICAL HISTORY: Confusion COMPARISON: September 2023 FINDINGS: The lungs appear clear of acute infiltrate. The heart is mildly enlarged. Pacemaker leads are in place. IMPRESSION: No acute abnormalities displayed EXAM DESCRIPTION: CT - Head Brain Wo Cont - 12/06/2023 4:40 pm CLINICAL HISTORY: Alteration of awareness/confusion COMPARISON: August 2023 TECHNIQUE: Computed axial tomography of the head was obtained. IV contrast was not requested. All CT scans are performed using dose optimization technique as appropriate and may include automated exposure control or mA/KV adjustment according to patient size. FINDINGS: An intracranial bleed is not seen The ventricles are normal in caliber No extra-axial fluid collection is noted. Prominent cerebral atrophy Mild low-density areas within periventricular, deep and subcortical white matter likely represent ischemic changes secondary to small vessel disease. Fluid within the sinuses/ mastoids is not seen. IMPRESSION: No acute intracranial abnormality is seen If patient's symptoms persist MRI of the brain would be recommended Conclusions/Impression: Hypernatremia with encephalopathy -Continue IVF Hypokalemia -Replete prn Hypomagnesemia -Replete prn Hypophosphatemia -Replete prn DM II with CKD/ Proteinuria -RISS prn Hypoalbuminemia -Continue Clinimax Anemia in chronic illness -Monitor H&H -PRBC prn Hypothyroidism, uncontrolled -Continue IV Levothyroxine Bacteremia -Continue Abx -ID following Case reviewed with Dr. Worthy
[2023-12-13] MEDS: PANTOPRAZOLE 40 MG INJ IVP SCH (20:57)
[2023-12-14 05:31] LABS: Hematocrit 25.9 % (36.0-45.0); Hemoglobin 8.7 g/dL (12.0-15.0); MCH 31.8 pg (27.0-35.0); MCHC 33.6 g/dL (32.0-36.0); MCV 94.6 fL (80-100); MPV 10.7 fL (7.6-11.3); Platelets 96 thou/uL (152-406); RBC Red Blood Cell Count 2.73 M/uL (3.86-4.86); Red Cell Distribution Width 17.6 % (12.1-15.2)
[2023-12-14 05:57] LABS: Albumin 2.5 g/dL (3.4-5.0); Albumin/Globulin Ratio 0.9 (1.1-1.8); Anion Gap 8.7 mEq/L (5.0-15.0); Bilirubin Total 0.7 mg/dL (0.2-1.0); Globulin 2.9 g/dL (2.3-3.5); Magnesium 1.6 mg/dL (1.6-2.4); Potassium 3.7 mEq/L (3.5-5.1); Protein, Total 5.4 g/dL (6.4-8.2)
[2023-12-14 06:07] LABS: Phosphorus 1.4 mg/dL (2.5-4.9)
[2023-12-14] MEDS: POTASSIUM PHOS IN 0.9 % NACL 15 MMOL/250 ML BAG IV ONE (12:00)
--- NOTE | 2023-12-14 13:05 | PN ---
Subjective: Patient's condition remained unchanged, nonverbal. Objective: Vital Signs: Afebrile, pulse 100, respirations 18, blood pressure 100/55. HEENT: Unremarkable. Neck: Supple. Lungs: Basal crackles. Heart: S1, S2. Regular. Abdomen: Soft, nontender. Bowel sounds present. Extremity: No edema. Currently, on tPA and IV levothyroxine for hypothyroidism. Vancomycin for bacteremia. Assessment And Plan: Staph hominis bacteremia in an 83-year-old female with myxedema coma. Continue antibiotic for 2 weeks. Continue supportive care. We will follow the patient as needed. NF/MODL Voice ID: [id number] Report ID: [id number]
--- NOTE | 2023-12-14 17:45 | P.PN ---
Subjective Date of Service: 12/14/23 Chief Complaint: Worsening confusion/failure to thrive Patient remained confused. No major changes from yesterday. Physical Examination - Vital Signs Temperature: 96.9 F Blood Pressure: 122/59 Pulse: 94 Respirations: 16 Pulse Ox (%): 96 Assessment And Plan - Plan Physical Exam: GEN: Somnolent, NAD CV: Regular rate and rhythm, trace lower extremity edema Pulm: Nonlabored respirations on room air, clear bilaterally, ABD: soft, nontender, nondistended Neuro: somnolent, moves note all extremities spontaneously, awakens to verbal stimuli chavez catheter present. Problem List: Severe Hypernatremia secondary to hypovolemia Toxic Encephalopathy Hypokalemia, Hypomagnesemia, Hypophosphatemia ALCIDES, prerenal Staph Hominis bacteremia, unknown source Hematuria, resolved Hypothyroidism ?mild myxedema coma Bilateral cephalic vein thrombus (12/10/23) hx DVT/PE; unprovoked; s/p IVC filter thrombocytopenia, chronic NIDDM2 Dementia hx CVA Severe Hypernatremia secondary to hypovolemia Toxic Encephalopathy Hypokalemia, Hypomagnesemia, Hypophosphatemia ALCIDES, prerenal Encephalopathy related to hypernatremia. nephrology is following Hypernatremia resolved but patient mental status is lagging recovery. PICC nurse unable to place picc due to resistance given history of multiple DVTs Dr. Beaulieu placed central line 12/09 continue TPN via central line Considering NG tube for feeding. Abdominal CT suggest possible gastritis. Head CT is unremarkable. Staph Hominis bacteremia, unknown source Hematuria, resolved UA suspicious for UTI, however unable to get accurate history from patient previously on rocephin / vanc (12/06-12/09); switched to IV cefepime (12/09-12/10) per ID d/t low platelets however was found be to erroneous lab results (plt stable in ~70s but reported <15 at the time) switched IV cefepime to IV vanc (12/10-) given culture results Blood cx: (12/05): Staph Hominis in 3/4 bottles urine cx (12/04): mixed meche ID Dr. Ko's follow-up. repeat blood cx (12/08): NGTD Hypothyroidism TSH significantly elevated 61.5 (12/05) encephalopathy, slightly lower temps but not fully hypothermic, BP soft as well Reported compliance with thyroid hormone supplementation. Continue IV Synthroid. Added IV hydrocortisone. Bilateral cephalic vein thrombus (12/10/23) hx DVT/PE; unprovoked ; s/p IVC filter extremity u/s (12/09): +DVT of right and left cephalic veins(superficial vein thrombosis) Status post IVC filter. Continue current dose Lovenox. thrombocytopenia, chronic Stable Monitor CBC NIDDM2 accu-cheks, SSI with hyperglycemia secondary to TPN continue Semglee; added 12/11 Dementia hx CVA Patient currently unable to tolerate p.o.. VTE: Lovenox Code: DNR Time Spent Managing Pts Care (In Minutes): 48
--- NOTE | 2023-12-14 18:26 | P.PN ---
Date of Service: 12/14/23 Vital Signs Temp Pulse Resp BP Pulse Ox 96.9 F 94 H 16 122/59 L 96 12/14/23 17:55 12/14/23 17:55 12/14/23 17:55 12/14/23 17:55 12/14/23 17:55 Medications Acetaminophen (Acetaminophen 500 Mg Tab) 500 mg PO Q6H PRN PRN Reason: TEMP > 100' F Enoxaparin Sodium (Enoxaparin 40 Mg/0.4 Ml) 40 mg SQ DAILY [facility] [place] Last Admin: 12/14/23 09:41 Dose: 40 mg Glucagon (Glucagon 1 Mg/Vial) 1 mg IM 1X PRN PRN Reason: HYPOGLYCEMIA Hydralazine HCl (Hydralazine Hcl 20 Mg/Ml Vial) 10 mg IV Q6HP PRN PRN Reason: FOR SBP>160 OR DBP>100 MMHG Hydrocortisone Sodium Succinate (Hydrocortisone Suc 100 Mg Inj) 100 mg IV DAILY [facility] [place] Dextrose (D10w 500 Ml Ivpb) 500 mls @ 0 mls/hr IV .Q0M [facility] [place] Multivitamins 10 ml/ AMINO ACIDS 5 %/DEXTROSE 20 %/ Fat Emulsion Intravenous 2,260 mls @ 70 mls/hr IV M,W,F [facility] [place] Last Admin: 12/13/23 16:51 Dose: 2,260 mls AMINO ACIDS 5 %/DEXTROSE 20 % (Clinimix 5%-20% Solution) 2,000 mls @ 70 mls/hr IV SuTuThSa@1700 [facility] [place] Last Admin: 12/12/23 17:01 Dose: 2,000 mls Dextrose (Dextrose 10% Water Iv Soln.) 125 mls @ 0 mls/hr IV PRN PRN; Protocol PRN Reason: HYPOGLYCEMIA Vancomycin HCl 1 gm/ Sodium (Chloride) 250 mls @ 250 mls/hr IVPB Q24H [facility] [place]; Protocol Insulin Glargine (Insulin Glargine 100 Unit/Ml) 10 unit SQ BEDTIME [facility] [place] Last Admin: 12/13/23 20:57 Dose: 10 unit Insulin Human Regular (Insulin Regular (Human) 100 Unit/Ml) 0 unit SQ ACHS [facility] [place]; Protocol Last Admin: 12/14/23 11:30 Dose: Not Given Levothyroxine Sodium (Levothyroxine Sodium 100 Mcg Vial) 75 mcg IV [id number] [facility] [place] Last Admin: 12/14/23 05:23 Dose: 75 mcg Mupirocin (Mupirocin Nasal 2 Appl/1 Gm Tube) 1 appl EDMUNDO BID JENNA Stop: 12/15/23 09:01 Last Admin: 12/14/23 09:41 Dose: 1 appl Ondansetron HCl (Ondansetron 4 Mg/2 Ml Vial) 4 mg IV Q8H PRN PRN Reason: NAUSEA / VOMITING Pantoprazole Sodium (Pantoprazole 40 Mg Inj) 40 mg IVP Q12HR [facility]; Protocol Last Admin: 12/14/23 09:41 Dose: 40 mg Sodium Chloride (Sodium Chloride 0.9% 10ml Inj) 10 ml IV UD PRN PRN Reason: Diluant Sterile Water (Water For Inj,Sterile 10 Ml) 1.2 ml IM UD PRN PRN Reason: DILUTION OF MED Ziprasidone (Ziprasidone Mesyla 20 Mg/Vial) 10 mg IM Q12H PRN PRN Reason: DEMENTIA Microbiology Results 12/06/23 16:20 Blood - Blood Aerobic Blood Culture - Final Staph Hominis 12/06/23 16:20 Blood - Blood Blood Culture Gram Stain - Final 12/06/23 16:20 Blood - Blood Anaerobic Blood Culture - Final No growth in 5 days. 12/06/23 18:16 Blood - Blood Aerobic Blood Culture - Final Staph Hominis 12/06/23 18:16 Blood - Blood Blood Culture Gram Stain - Final 12/06/23 18:16 Blood - Blood Anaerobic Blood Culture - Final Staphylococcus Hominis 12/06/23 18:16 Blood - Blood Gram Stain - Final Assessment/ Plan: Nephrology Limited IH/ ROS due to AMS No BM noted No acute events overnight Vitals, medications, blood work and imaging reviewed in the chart General: NAD HEENT: Atraumatic Neck: Supple Respiratory: Clear to auscultation bilaterally, Normal air movement Cardiovascular: No edema, Regular rate/rhythm Gastrointestinal: Non-distended, No guarding Musculoskeletal: No clubbing, No warmth Integumentary: No rashes, No cyanosis Neurological: Somnolent Laboratory Data (last 24 hrs) 12/06/23 12/06/23 12/06/23 16:20 16:20 16:20 WBC 3.60 L Hgb 11.9 L Hct 37.3 Plt Count 59 L PT 13.3 H INR 1.19 APTT 26.7 Sodium 152 H* Potassium 2.8 L BUN 53 H Creatinine 1.35 H Glucose 115 H Total Bilirubin 1.3 H AST 16 ALT 26 Alkaline Phosphatase 50 Imagings Data: EXAM DESCRIPTION: Coreen Single View12/06/2023 4:34 pm CLINICAL HISTORY: Confusion COMPARISON: September 2023 FINDINGS: The lungs appear clear of acute infiltrate. The heart is mildly enlarged. Pacemaker leads are in place. IMPRESSION: No acute abnormalities displayed EXAM DESCRIPTION: CT - Head Brain Wo Cont - 12/06/2023 4:40 pm CLINICAL HISTORY: Alteration of awareness/confusion COMPARISON: August 2023 TECHNIQUE: Computed axial tomography of the head was obtained. IV contrast was not requested. All CT scans are performed using dose optimization technique as appropriate and may include automated exposure control or mA/KV adjustment according to patient size. FINDINGS: An intracranial bleed is not seen The ventricles are normal in caliber No extra-axial fluid collection is noted. Prominent cerebral atrophy Mild low-density areas within periventricular, deep and subcortical white matter likely represent ischemic changes secondary to small vessel disease. Fluid within the sinuses/ mastoids is not seen. IMPRESSION: No acute intracranial abnormality is seen If patient's symptoms persist MRI of the brain would be recommended Conclusions/Impression: Hypernatremia with encephalopathy Hyponatremia -Adjust Clinimax prn -Agree with hydrocortisone Hypokalemia -Replete prn Hypomagnesemia -Replete prn Hypophosphatemia -Replete as ordered DM II with CKD/ Proteinuria -RISS prn Hypoalbuminemia -Continue Clinimax Anemia in chronic illness -Monitor H&H -PRBC prn Hypothyroidism, uncontrolled -Continue IV Levothyroxine Bacteremia -Continue Abx -ID following Hospitalist note reviewed
[2023-12-15] MEDS: INSULIN REGULAR (HUMAN) 100 UNIT/ML SQ SCH (01:30)
[2023-12-15 05:50] LABS: Absolute Eosinophils 0.1 K/uL (0-0.5); Absolute Lymphocytes (CBC) 0.6 K/uL (0.7-4.9); Absolute Monocytes 0.2 K/uL (0.1-1.3); Absolute Neutrophil 3.3 K/uL (1.8-8.0); Basophils % 0.6 % (0-1.3); Eosinophils % 1.7 % (0-4.4); Hematocrit 25.4 % (36.0-45.0); Hemoglobin 8.3 g/dL (12.0-15.0); Lymphocytes % 13.4 % (15.3-44.8); MCH 31.5 pg (27.0-35.0); MCHC 32.9 g/dL (32.0-36.0); MPV 11.4 fL (7.6-11.3); Monocytes % 5.6 % (3.3-12.3); Neutrophils % 78.7 % (41.7-73.7); Nucleated Red Blood Cells % 0.4 % (0-0); Platelets 110 thou/uL (152-406); RBC Red Blood Cell Count 2.65 M/uL (3.86-4.86); Red Cell Distribution Width 17.8 % (12.1-15.2)
[2023-12-15 06:01] LABS: Albumin 2.4 g/dL (3.4-5.0); Albumin/Globulin Ratio 0.8 (1.1-1.8); Anion Gap 10.7 mEq/L (5.0-15.0); Bilirubin Total 0.6 mg/dL (0.2-1.0); Globulin 3.2 g/dL (2.3-3.5); Phosphorus 1.8 mg/dL (2.5-4.9); Potassium 3.7 mEq/L (3.5-5.1); Protein, Total 5.6 g/dL (6.4-8.2); Uric Acid 3.2 mg/dL (2.6-6.0)
[2023-12-15 06:40] VITALS: BMI 31.4
[2023-12-15] MEDS: HYDROCORTISONE SUC 100 MG INJ IV SCH (09:38)
[2023-12-15] MEDS: KCL 20 MEQ/100 mL IVPB 20 MEQ/100 ML BAG IV SCH (12:06)
[2023-12-15] MEDS: VANCOMYCIN 1 GM in NA CHLORIDE 0.9% 250 ML IVPB SCH (12:07)
[2023-12-15] MEDS: NA CHLORIDE 0.9% 100 ML ONE (12:08)
--- NOTE | 2023-12-15 13:09 | PN ---
Subjective: Patient is lying in bed. No new acute event. Chart reviewed. Objective: Vital Signs: Reviewed. Lungs: Basal crackles. Heart: S1, S2. Regular. Abdomen: Soft, nontender. Bowel sounds present. Extremity: No edema. Laboratory Data: Reviewed. WBC 4.2, hemoglobin 8.3, platelets are 110. Chemistry shows BUN of 30, creatinine 0.8. Assessment And Plan: Staph hominis bacteremia, currently being treated with vancomycin. Continue shrestha pportive care. Myxedema coma. The patient is being treated with thyroid supplement. We will follow the patient as needed. NF/MODL Voice ID: [id number] Report ID: [id number]
--- NOTE | 2023-12-15 17:34 | P.PN ---
Subjective Date of Service: 12/15/23 Chief Complaint: Worsening confusion/failure to thrive Patient remain confused. No major from yesterday. She opens her eyes to verbal. Physical Examination - Vital Signs Temperature: 97.4 F Blood Pressure: 148/70 Pulse: 87 Respirations: 20 Pulse Ox (%): 98 Assessment And Plan - Plan Physical Exam: GEN: Somnolent, NAD CV: Regular rate and rhythm, trace lower extremity edema Pulm: Nonlabored respirations on room air, clear bilaterally, ABD: soft, nontender, nondistended Neuro: somnolent, moves note all extremities spontaneously, opens eyes to verbal stimuli chavez catheter present. Diagnosis Severe Hypernatremia secondary to hypovolemia Toxic Encephalopathy Hypokalemia, Hypomagnesemia, Hypophosphatemia ALCIDES, prerenal Staph Hominis bacteremia, unknown source Hematuria, resolved Hypothyroidism ?mild myxedema coma Bilateral cephalic vein thrombus (12/10/23) hx DVT/PE; unprovoked; s/p IVC filter thrombocytopenia, chronic NIDDM2 Dementia hx CVA Severe Hypernatremia secondary to hypovolemia Toxic Encephalopathy Hypokalemia, Hypomagnesemia, Hypophosphatemia ALCIDES, prerenal Encephalopathy related to hypernatremia. nephrology is following Hypernatremia resolved but patient mental status is lagging recovery. PICC nurse unable to place picc due to resistance given history of multiple DVTs Dr. Baeulieu placed central line 12/09 continue TPN via central line Considering NG tube for feeding. Abdominal CT suggest possible gastritis. Head CT is unremarkable. Repeat CT head to rule out anatomical cause of the altered mental status. Cannot do MRI due to presence of pacemaker. Staph Hominis bacteremia, unknown source Hematuria, resolved UA suspicious for UTI, however unable to get accurate history from patient previously on rocephin / vanc (12/06-12/09); switched to IV cefepime (12/09-12/10) per ID d/t low platelets however was found be to erroneous lab results (plt stable in ~70s but reported <15 at the time) switched IV cefepime to IV vanc (12/10-) given culture results Blood cx: (12/05): Staph Hominis in 3/4 bottles urine cx (12/04): mixed meche ID Dr. Faroo is following. repeat blood cx (12/08): NGTD Hypothyroidism TSH significantly elevated 61.5 (12/05) encephalopathy, slightly lower temps but not fully hypothermic, BP soft as well Reported compliance with thyroid hormone supplementation. Continue IV Synthroid. Continue IV hydrocortisone. Bilateral cephalic vein thrombus (12/10/23) hx DVT/PE; unprovoked ; s/p IVC filter extremity u/s (12/09): +DVT of right and left cephalic veins(superficial vein thrombosis) Status post IVC filter. Continue current dose Lovenox. thrombocytopenia, chronic Stable Monitor CBC NIDDM2 accu-cheks, SSI with hyperglycemia secondary to TPN continue Semglee; added 12/11 Dementia hx CVA Patient currently unable to tolerate p.o. VTE: Lovenox Code: DNR Time Spent Managing Pts Care (In Minutes): 48
--- NOTE | 2023-12-15 21:37 | P.PN ---
Date of Service: 12/15/23 Vital Signs Temp Pulse Resp BP Pulse Ox 97.1 F 100 H 16 113/64 96 12/15/23 20:00 12/15/23 20:00 12/15/23 20:00 12/15/23 20:00 12/15/23 20:00 Medications Acetaminophen (Acetaminophen 500 Mg Tab) 500 mg PO Q6H PRN PRN Reason: TEMP > 100' F Enoxaparin Sodium (Enoxaparin 40 Mg/0.4 Ml) 40 mg SQ DAILY [facility] Last Admin: 12/15/23 09:38 Dose: 40 mg Glucagon (Glucagon 1 Mg/Vial) 1 mg IM 1X PRN PRN Reason: HYPOGLYCEMIA Hydralazine HCl (Hydralazine Hcl 20 Mg/Ml Vial) 10 mg IV Q6HP PRN PRN Reason: FOR SBP>160 OR DBP>100 MMHG Hydrocortisone Sodium Succinate (Hydrocortisone Suc 100 Mg Inj) 100 mg IV DAILY [facility] Last Admin: 12/15/23 09:38 Dose: 100 mg Dextrose (D10w 500 Ml Ivpb) 500 mls @ 0 mls/hr IV .Q0M [facility] Multivitamins 10 ml/ AMINO ACIDS 5 %/DEXTROSE 20 %/ Fat Emulsion Intravenous 2,260 mls @ 70 mls/hr IV M,W,F [facility] Last Admin: 12/15/23 17:29 Dose: 2,260 mls AMINO ACIDS 5 %/DEXTROSE 20 % (Clinimix 5%-20% Solution) 2,000 mls @ 70 mls/hr IV SuTuThSa@1700 [facility] Last Admin: 12/14/23 18:31 Dose: 2,000 mls Dextrose (Dextrose 10% Water Iv Soln.) 125 mls @ 0 mls/hr IV PRN PRN; Protocol PRN Reason: HYPOGLYCEMIA Vancomycin HCl 1 gm/ Sodium (Chloride) 250 mls @ 250 mls/hr IVPB Q24H [facility]; Protocol Last Admin: 12/15/23 12:07 Dose: 250 mls Insulin Glargine (Insulin Glargine 100 Unit/Ml) 10 unit SQ BEDTIME [facility] Last Admin: 12/15/23 21:18 Dose: 10 unit Insulin Human Regular (Insulin Regular (Human) 100 Unit/Ml) 0 unit SQ Q6HR [facility]; Protocol Last Admin: 12/15/23 18:32 Dose: 4 unit Levothyroxine Sodium (Levothyroxine Sodium 100 Mcg Vial) 75 mcg IV [id number] [facility]ENNA Last Admin: 12/15/23 06:34 Dose: 75 mcg Ondansetron HCl (Ondansetron 4 Mg/2 Ml Vial) 4 mg IV Q8H PRN PRN Reason: NAUSEA / VOMITING Pantoprazole Sodium (Pantoprazole 40 Mg Inj) 40 mg IVP Q12HR [facility]; Protocol Last Admin: 12/15/23 20:27 Dose: 40 mg Sodium Chloride (Sodium Chloride 0.9% 10ml Inj) 10 ml IV UD PRN PRN Reason: Diluant Sterile Water (Water For Inj,Sterile 10 Ml) 1.2 ml IM UD PRN PRN Reason: DILUTION OF MED Ziprasidone (Ziprasidone Mesyla 20 Mg/Vial) 10 mg IM Q12H PRN PRN Reason: DEMENTIA Microbiology Results 12/06/23 16:20 Blood - Blood Aerobic Blood Culture - Final Staph Hominis 12/06/23 16:20 Blood - Blood Blood Culture Gram Stain - Final 12/06/23 16:20 Blood - Blood Anaerobic Blood Culture - Final No growth in 5 days. 12/06/23 18:16 Blood - Blood Aerobic Blood Culture - Final Staph Hominis 12/06/23 18:16 Blood - Blood Blood Culture Gram Stain - Final 12/06/23 18:16 Blood - Blood Anaerobic Blood Culture - Final Staphylococcus Hominis 12/06/23 18:16 Blood - Blood Gram Stain - Final Assessment/ Plan: Nephrology Limited IH/ ROS due to AMS No BM noted No acute events overnight Vitals, medications, blood work and imaging reviewed in the chart General: NAD HEENT: Atraumatic Neck: Supple Respiratory: Clear to auscultation bilaterally, Normal air movement Cardiovascular: No edema, Regular rate/rhythm Gastrointestinal: Non-distended, No guarding Musculoskeletal: No clubbing, No warmth Integumentary: No rashes, No cyanosis Neurological: Somnolent Laboratory Data (last 24 hrs) 12/06/23 12/06/23 12/06/23 16:20 16:20 16:20 WBC 3.60 L Hgb 11.9 L Hct 37.3 Plt Count 59 L PT 13.3 H INR 1.19 APTT 26.7 Sodium 152 H* Potassium 2.8 L BUN 53 H Creatinine 1.35 H Glucose 115 H Total Bilirubin 1.3 H AST 16 ALT 26 Alkaline Phosphatase 50 Imagings Data: EXAM DESCRIPTION: Coreen Single View12/06/2023 4:34 pm CLINICAL HISTORY: Confusion COMPARISON: September 2023 FINDINGS: The lungs appear clear of acute infiltrate. The heart is mildly enlarged. Pacemaker leads are in place. IMPRESSION: No acute abnormalities displayed EXAM DESCRIPTION: CT - Head Brain Wo Cont - 12/06/2023 4:40 pm CLINICAL HISTORY: Alteration of awareness/confusion COMPARISON: August 2023 TECHNIQUE: Computed axial tomography of the head was obtained. IV contrast was not requested. All CT scans are performed using dose optimization technique as appropriate and may include automated exposure control or mA/KV adjustment according to patient size. FINDINGS: An intracranial bleed is not seen The ventricles are normal in caliber No extra-axial fluid collection is noted. Prominent cerebral atrophy Mild low-density areas within periventricular, deep and subcortical white matter likely represent ischemic changes secondary to small vessel disease. Fluid within the sinuses/ mastoids is not seen. IMPRESSION: No acute intracranial abnormality is seen If patient's symptoms persist MRI of the brain would be recommended Conclusions/Impression: Hypernatremia with encephalopathy Hyponatremia -Adjust Clinimax prn -Continue hydrocortisone Hypokalemia -Replete prn Hypomagnesemia -Replete prn Hypophosphatemia -Replete as ordered DM II with CKD/ Proteinuria -RISS prn Hypoalbuminemia -Continue Clinimax Anemia in chronic illness -Monitor H&H -PRBC prn Hypothyroidism, uncontrolled -Continue IV Levothyroxine Bacteremia -Continue Abx -ID following Hospitalist note reviewed Case reviewed with Dr. Fregoso
[2023-12-16 01:09] LABS: Renal Epithelial <5 /HPF (None Seen); Specific Gravity 1.018 (1.005-1.030); Sqamous Epithelial <5 /HPF (None Seen); Urine Bacteria None Seen /HPF (<20); Urine Bilirubin NEGATIVE (Negative); Urine Blood 2+ (Negative); Urine Clarity Turbid (Clear); Urine Color Light-Yellow (Yellow); Urine Culture Reflex Order REFLEXED; Urine Glucose 4+ (Negative); Urine Ketones NEGATIVE (Negative); Urine Micro Reflex YN NO BILL MICROSCOPIC; Urine Mucus Slight /HPF (None Seen); Urine Nitrite NEGATIVE (Negative); Urine Protein 1+ (Negative); Urine RBC 21-50 /HPF (None Seen); Urine Urobilinogen Normal (Normal); Urine Yeast (Budding) Many /HPF (None Seen); Urine Yeast with Hyphae Trace /HPF (None Seen)
[2023-12-16 06:27] LABS: Anion Gap 9.7 mEq/L (5.0-15.0); Potassium 3.7 mEq/L (3.5-5.1)
[2023-12-16 06:41] LABS: Phosphorus 1.1 mg/dL (2.5-4.9)
--- NOTE | 2023-12-16 07:54 | RAD REPORT ---
EXAM: CT brain without and with contrast HISTORY: Headache, drowsiness, alteration of awareness COMPARISON: None TECHNIQUE: Multiple contiguous axial images were obtained and a CT of the brain without and with cont rast. Sagittal and coronal reformats were performed. FINDINGS:No evidence of hydrocephalus, intracranial hemorrhage, or extra-axial fluid collection. Moderate brain atrophy with moderate periventricular and deep white matter chronic microvascular isc hemic changes present. The calvarium is intact. The visualized paranasal sinuses and mastoid air cells are essentially clear . No pathologic postcontrast enhancement seen. IMPRESSION: No evidence of acute intracranial abnormality. No pathologic postcontrast enhancement.
[2023-12-16] MEDS: POTASSIUM PHOS IN 0.9 % NACL 15 MMOL/250 ML BAG IV SCH (10:18)
--- NOTE | 2023-12-16 10:55 | P.PN ---
Date of Service: 12/16/23 Vital Signs Temp Pulse Resp BP Pulse Ox 97 F 94 H 16 125/66 97 12/16/23 04:00 12/16/23 04:00 12/16/23 04:00 12/16/23 04:00 12/16/23 04:00 Medications Acetaminophen (Acetaminophen 500 Mg Tab) 500 mg PO Q6H PRN PRN Reason: TEMP > 100' F Enoxaparin Sodium (Enoxaparin 40 Mg/0.4 Ml) 40 mg SQ DAILY [facility] Last Admin: 12/16/23 10:17 Dose: 40 mg Glucagon (Glucagon 1 Mg/Vial) 1 mg IM 1X PRN PRN Reason: HYPOGLYCEMIA Hydralazine HCl (Hydralazine Hcl 20 Mg/Ml Vial) 10 mg IV Q6HP PRN PRN Reason: FOR SBP>160 OR DBP>100 MMHG Hydrocortisone Sodium Succinate (Hydrocortisone Suc 100 Mg Inj) 100 mg IV DAILY [facility] Last Admin: 12/16/23 10:17 Dose: 100 mg Dextrose (D10w 500 Ml Ivpb) 500 mls @ 0 mls/hr IV .Q0M [facility] Multivitamins 10 ml/ AMINO ACIDS 5 %/DEXTROSE 20 %/ Fat Emulsion Intravenous 2,260 mls @ 70 mls/hr IV M,W,F [facility] Last Admin: 12/15/23 17:29 Dose: 2,260 mls AMINO ACIDS 5 %/DEXTROSE 20 % (Clinimix 5%-20% Solution) 2,000 mls @ 70 mls/hr IV SuTuThSa@1700 [facility] Last Admin: 12/14/23 18:31 Dose: 2,000 mls Dextrose (Dextrose 10% Water Iv Soln.) 125 mls @ 0 mls/hr IV PRN PRN; Protocol PRN Reason: HYPOGLYCEMIA Vancomycin HCl 1 gm/ Sodium (Chloride) 250 mls @ 250 mls/hr IVPB Q24H [facility]; Protocol Last Admin: 12/15/23 12:07 Dose: 250 mls Potassium Phosphate (Potassium Phos 15 Mmol/250 Ml Ns) 15 mmol in 250 mls @ 62.5 mls/hr IV 1X JENNA; Protocol Stop: 12/16/23 11:59 Last Admin: 12/16/23 10:18 Dose: 250 mls Insulin Glargine (Insulin Glargine 100 Unit/Ml) 10 unit SQ BEDTIME [facility] Last Admin: 12/15/23 21:18 Dose: 10 unit Insulin Human Regular (Insulin Regular (Human) 100 Unit/Ml) 0 unit SQ Q6HR [facility]; Protocol Last Admin: 12/16/23 06:14 Dose: 2 unit Levothyroxine Sodium (Levothyroxine Sodium 100 Mcg Vial) 75 mcg IV [id number] [facility] Last Admin: 12/16/23 05:54 Dose: 75 mcg Ondansetron HCl (Ondansetron 4 Mg/2 Ml Vial) 4 mg IV Q8H PRN PRN Reason: NAUSEA / VOMITING Pantoprazole Sodium (Pantoprazole 40 Mg Inj) 40 mg IVP Q12HR [facility]; Protocol Last Admin: 12/16/23 10:17 Dose: 40 mg Sodium Chloride (Sodium Chloride 0.9% 10ml Inj) 10 ml IV UD PRN PRN Reason: Diluant Sterile Water (Water For Inj,Sterile 10 Ml) 1.2 ml IM UD PRN PRN Reason: DILUTION OF MED Ziprasidone (Ziprasidone Mesyla 20 Mg/Vial) 10 mg IM Q12H PRN PRN Reason: DEMENTIA Microbiology Results 12/06/23 16:20 Blood - Blood Aerobic Blood Culture - Final Staph Hominis 12/06/23 16:20 Blood - Blood Blood Culture Gram Stain - Final 12/06/23 16:20 Blood - Blood Anaerobic Blood Culture - Final No growth in 5 days. 12/06/23 18:16 Blood - Blood Aerobic Blood Culture - Final Staph Hominis 12/06/23 18:16 Blood - Blood Blood Culture Gram Stain - Final 12/06/23 18:16 Blood - Blood Anaerobic Blood Culture - Final Staphylococcus Hominis 12/06/23 18:16 Blood - Blood Gram Stain - Final Assessment/ Plan: Nephrology No dyspnea No chest pain +Appetite More conversant today No acute events overnight Vitals, medications, blood work and imaging reviewed in the chart General: NAD HEENT: Atraumatic Neck: Supple Respiratory: Clear to auscultation bilaterally, Normal air movement Cardiovascular: No edema, Regular rate/rhythm Gastrointestinal: Non-distended, No guarding Musculoskeletal: No clubbing, No warmth Integumentary: No rashes, No cyanosis Neurological: Awake Laboratory Data (last 24 hrs) 09/09/24 09/09/24 09/09/24 16:20 16:20 16:20 WBC 3.60 L Hgb 11.9 L Hct 37.3 Plt Count 59 L PT 13.3 H INR 1.19 APTT 26.7 Sodium 152 H* Potassium 2.8 L BUN 53 H Creatinine 1.35 H Glucose 115 H Total Bilirubin 1.3 H AST 16 ALT 26 Alkaline Phosphatase 50 Imagings Data: EXAM DESCRIPTION: Coreen Single View12/06/2023 4:34 pm CLINICAL HISTORY: Confusion COMPARISON: September 2023 FINDINGS: The lungs appear clear of acute infiltrate. The heart is mildly enlarged. Pacemaker leads are in place. IMPRESSION: No acute abnormalities displayed EXAM DESCRIPTION: CT - Head Brain Wo Cont - 12/06/2023 4:40 pm CLINICAL HISTORY: Alteration of awareness/confusion COMPARISON: August 2023 TECHNIQUE: Computed axial tomography of the head was obtained. IV contrast was not requested. All CT scans are performed using dose optimization technique as appropriate and may include automated exposure control or mA/KV adjustment according to patient size. FINDINGS: An intracranial bleed is not seen The ventricles are normal in caliber No extra-axial fluid collection is noted. Prominent cerebral atrophy Mild low-density areas within periventricular, deep and subcortical white matter likely represent ischemic changes secondary to small vessel disease. Fluid within the sinuses/ mastoids is not seen. IMPRESSION: No acute intracranial abnormality is seen If patient's symptoms persist MRI of the brain would be recommended Conclusions/Impression: Hypernatremia with encephalopathy Hyponatremia -Adjust Clinimax prn -Continue hydrocortisone Hypokalemia -Replete prn Hypomagnesemia -Replete prn Hypophosphatemia -Replete as ordered DM II with CKD/ Proteinuria -RISS prn Hypoalbuminemia -Continue Clinimax -Advance diet as tolerated Anemia in chronic illness -Monitor H&H -PRBC prn Hypothyroidism, uncontrolled -Continue IV Levothyroxine Bacteremia -Continue Abx -ID following -Follow up urine culture Hospitalist note reviewed Case reviewed with Dr. Fregoso
[2023-12-16] MEDS: SODIUM PHOSPHATE 15 MM in NA CHLORIDE 0.9% 250 ML IV SCH (14:41)
--- NOTE | 2023-12-16 16:20 | P.PN ---
Subjective Date of Service: 12/16/23 Chief Complaint: Worsening confusion/failure to thrive Patient is more awake and interactive today. She is complaining of hunger and wants to eat. Physical Examination - Vital Signs Temperature: 97.3 F Blood Pressure: 117/63 Pulse: 93 Respirations: 18 Pulse Ox (%): 97 Assessment And Plan - Plan Physical Exam: GEN: Awake, NAD CV: Regular rate and rhythm, trace lower extremity edema Pulm: Nonlabored breathing, clear bilaterally, ABD: soft, nontender, nondistended Neuro: awake, no focal motor deficit. chavez catheter present. Diagnosis Severe Hypernatremia secondary to hypovolemia Toxic Encephalopathy Hypokalemia, Hypomagnesemia, Hypophosphatemia Acute cystitis with hematuria ALCIDES, prerenal Staph Hominis bacteremia, unknown source Hematuria, resolved Hypothyroidism Myxedema coma Bilateral cephalic vein thrombus (12/10/23) hx DVT/PE; unprovoked; s/p IVC filter thrombocytopenia, chronic NIDDM2 Dementia hx CVA Severe Hypernatremia secondary to hypovolemia Toxic Encephalopathy Hypokalemia, Hypomagnesemia, Hypophosphatemia ALCIDES, prerenal Acute cystitis with hematuria Encephalopathy related to hypernatremia and possibly myxedema. nephrology is following Hypernatremia resolved, mental status is now improving. Central line in place Patient is on TPN but now asking for food. Start liquid diet, wean off TPN as patient's oral intake improve. Abdominal CT suggest possible gastritis. Head CT is unremarkable. Cannot do MRI due to presence of pacemaker. Repeat head CT with contrast showed no acute abnormalities Staph Hominis bacteremia, unknown source Hematuria, resolved Fungal UTI UA suspicious for UTI, however unable to get accurate history from patient previously on rocephin / vanc (12/06-12/09); switched to IV cefepime (12/09-12/10) per ID d/t low platelets however was found be to erroneous lab results (plt stable in ~70s but reported <15 at the time) switched IV cefepime to IV vanc (12/10-) given culture results Blood cx: (12/05): Staph Hominis in 3/4 bottles urine cx (12/04): mixed meche Urinalysis 12/15: Yeast. Start IV Diflucan, follow repeat urine culture ID Dr. Maloney is following. repeat blood cx (12/08): NGTD Hypothyroidism Myxedema coma TSH significantly elevated 61.5 (12/05) Reported compliance with thyroid hormone supplementation. Continue IV Synthroid. Continue IV hydrocortisone. Bilateral cephalic vein thrombus (12/10/23) hx DVT/PE; unprovoked ; s/p IVC filter extremity u/s (12/09): +DVT of right and left cephalic veins(superficial vein thrombosis) Status post IVC filter. Continue current dose Lovenox. Thrombocytopenia, chronic Stable Monitor CBC NIDDM2 accu-cheks, SSI with hyperglycemia secondary to TPN continue Semglee. Dementia hx CVA Resume home medications once patient is able to tolerate p.o. VTE: Lovenox Code: DNR Time Spent Managing Pts Care (In Minutes): 36
[2023-12-16] MEDS: FLUCONAZOLE 200mg IVPB 200 MG/100 ML BAG IV SCH (17:03)
[2023-12-17 05:47] LABS: Absolute Lymphocytes (CBC) 0.4 K/uL (0.7-4.9); Absolute Monocytes 0.3 K/uL (0.1-1.3); Absolute Neutrophil 3.2 K/uL (1.8-8.0); Basophils % 0.6 % (0-1.3); Eosinophils % 0.3 % (0-4.4); Hematocrit 24.4 % (36.0-45.0); Hemoglobin 7.9 g/dL (12.0-15.0); Lymphocytes % 9.9 % (15.3-44.8); MCH 31.4 pg (27.0-35.0); MCHC 32.5 g/dL (32.0-36.0); MCV 96.5 fL (80-100); MPV 11.4 fL (7.6-11.3); Monocytes % 7.2 % (3.3-12.3); Platelets 138 thou/uL (152-406); RBC Red Blood Cell Count 2.53 M/uL (3.86-4.86)
[2023-12-17 06:02] LABS: Anion Gap 7.5 mEq/L (5.0-15.0); Magnesium 1.5 mg/dL (1.6-2.4); Phosphorus 1.8 mg/dL (2.5-4.9); Potassium 3.5 mEq/L (3.5-5.1)
[2023-12-17] MEDS: Magnesium Sulfate 2gm IVPB 2 G/50 ML BAG IV ONE (06:15)
[2023-12-17] MEDS: POTASSIUM PHOS IN 0.9 % NACL 15 MMOL/250 ML BAG IV ONE (06:25)
[2023-12-17 11:45] LABS: Magnesium 1.8 mg/dL (1.6-2.4)
--- NOTE | 2023-12-17 11:51 | P.PN ---
Nephrology Pt remains lethargic, sound asleep for me, remains on PPN. Vitals, medications, blood work and imaging reviewed in the chart General: Lethargic but NAD HEENT: Atraumatic, not on O2 Respiratory: No distress, non tachypnec, no wheezing Cardiovascular: No sig edema, Regular rate/rhythm mostly Gastrointestinal: Non-distended, No guarding, non tender, chavez present Musculoskeletal: Shins non tender Integumentary: No rashes Neurological: Opens eyes briefly to sternal rub, non verbal, no tremors or myoclonus noted Conclusions/Impression: Hypernatremia with encephalopathy -Hypernatemia resolved, Na level 136 this AM, on hypotonic fluids with the PPN Hypokalemia -Resolved Hypophosphatemia, hypomagnesemia -recurrent -Recurrent, will ask ask pharmacy to add electrolytes to the PPN AMS, encephalopathy multifactorial. Hypothyroidism related myxedema -Cont to monitor closely with management per IM. F/u TFTs
--- NOTE | 2023-12-17 17:30 | P.PN ---
Subjective Date of Service: 12/17/23 Chief Complaint: Worsening confusion/failure to thrive Patient has been more sleepy today. Her hemoglobin keeps dropping and now it is at 7.9. No reported melena or hematemesis or bright red blood per rectum. Physical Examination - Vital Signs Temperature: 97.4 F Blood Pressure: 141/64 Pulse: 83 Respirations: 16 Pulse Ox (%): 95 Assessment And Plan - Plan Physical Exam: GEN: Awake, NAD CV: Regular rate and rhythm, trace lower extremity edema Pulm: Nonlabored breathing, clear bilaterally, ABD: soft, nontender, nondistended Neuro: no focal motor deficit, sleepy but easily arousable. chavez catheter present. Diagnosis Severe Hypernatremia secondary to hypovolemia Toxic Encephalopathy Hypokalemia, Hypomagnesemia, Hypophosphatemia Acute cystitis with hematuria ALCIDES, prerenal Staph Hominis bacteremia, unknown source Hematuria, resolved Hypothyroidism Myxedema coma Bilateral cephalic vein thrombus (12/10/23) hx DVT/PE; unprovoked; s/p IVC filter thrombocytopenia, chronic NIDDM2 Dementia hx CVA Severe Hypernatremia secondary to hypovolemia Toxic Encephalopathy Hypokalemia, Hypomagnesemia, Hypophosphatemia ALCIDES, prerenal Acute cystitis with hematuria Encephalopathy related to hypernatremia and possibly myxedema. nephrology is following Hypernatremia resolved, mental status is now improving. Central line in place Patient is on TPN but now asking for food. Start liquid diet, wean off TPN as patient's oral intake improve. Abdominal CT suggest possible gastritis. Head CT is unremarkable. Cannot do MRI due to presence of pacemaker. Repeat head CT with contrast showed no acute abnormalities Staph Hominis bacteremia, unknown source Hematuria, resolved Fungal UTI UA suspicious for UTI, however unable to get accurate history from patient Status post IV cefepime Blood cx: (12/05): Staph Hominis in 3/4 bottles urine cx (12/04): mixed meche Urinalysis 12/15: Yeast. Continue IV vancomycin and IV Diflucan, follow repeat urine culture ID Dr. Ko is following. repeat blood cx (12/08): NGTD Patient is being evaluated for LTAC placement. Hypothyroidism Myxedema coma TSH significantly elevated 61.5 (12/05) Reported compliance with thyroid hormone supplementation. Continue IV Synthroid. Continue IV hydrocortisone. Bilateral cephalic vein thrombus (12/10/23) hx DVT/PE; unprovoked ; s/p IVC filter extremity u/s (12/09): +DVT of right and left cephalic veins(superficial vein thrombosis) Status post IVC filter. Hold Lovenox due to decreasing hemoglobin. SCD for DVT prophylaxis. Thrombocytopenia, chronic Improving. Monitor CBC NIDDM2 accu-cheks, SSI with hyperglycemia secondary to TPN continue Semglee. Wean off TPN if patient tolerates diet. Dementia hx CVA Resume home medications once patient is able to tolerate p.o. VTE: Lovenox Code: DNR Time Spent Managing Pts Care (In Minutes): 36
[2023-12-17] MEDS: AMINO ACIDS 5 %/DEXTROSE 20 % 2,000 ML, Lipids 20% 250 ML with MULTIVITAMINS INJ 10 ML,... IV SCH (17:55)
[2023-12-18 06:12] LABS: Absolute Lymphocytes (CBC) 0.4 K/uL (0.7-4.9); Absolute Monocytes 0.4 K/uL (0.1-1.3); Absolute Neutrophil 2.9 K/uL (1.8-8.0); Basophils % 0.4 % (0-1.3); Eosinophils % 0.5 % (0-4.4); Hematocrit 23.4 % (36.0-45.0); Hemoglobin 7.7 g/dL (12.0-15.0); Lymphocytes % 10.8 % (15.3-44.8); MCH 31.7 pg (27.0-35.0); MCHC 33.1 g/dL (32.0-36.0); MCV 95.7 fL (80-100); MPV 10.4 fL (7.6-11.3); Monocytes % 9.5 % (3.3-12.3); Neutrophils % 78.8 % (41.7-73.7); Nucleated Red Blood Cells % 0.2 % (0-0); Platelets 145 thou/uL (152-406); RBC Red Blood Cell Count 2.44 M/uL (3.86-4.86)
[2023-12-18 06:14] LABS: Anion Gap 9.4 mEq/L (5.0-15.0); Magnesium 1.9 mg/dL (1.6-2.4); Phosphorus 2.1 mg/dL (2.5-4.9); Potassium 3.4 mEq/L (3.5-5.1)
[2023-12-18] MEDS: KCL 20 MEQ/100 mL IVPB 20 MEQ/100 ML BAG IV SCH (06:38)
[2023-12-18] MEDS: POTASSIUM PHOS IN 0.9 % NACL 15 MMOL/250 ML BAG IV ONE (09:38)
--- NOTE | 2023-12-18 12:19 | P.PN ---
Nephrology Pt remains lethargic, but arousable this AM although does not converse, remains on PPN. Vitals, medications, blood work and imaging reviewed in the chart General: Lethargic but NAD HEENT: Atraumatic, not on O2 Respiratory: No distress, non tachypnec, no wheezing Cardiovascular: No sig edema, Regular rate/rhythm mostly Gastrointestinal: Non-distended, No guarding, non tender, chavez present Musculoskeletal: Shins non tender Integumentary: No rashes Neurological: Opens eyes today, non verbal, no tremors or myoclonus noted Conclusions/Impression: Hypernatremia with encephalopathy -Hypernatemia resolved, Na level stable, on hypotonic fluids with the PPN Hypokalemia -Resolved Hypophosphatemia, hypomagnesemia -recurrent -Recurrent, did ask pharmacy to add electrolytes to the PPN and Mg and K phos has been added and additional Phos IV repletion ordered by IM this AM AMS, encephalopathy multifactorial. Hypothyroidism related myxedema -Cont to monitor closely with management per IM. F/u TFTs Abnormal findings in urine, pyuria. Yeast in culture -Cont IV diflucan
--- NOTE | 2023-12-18 13:09 | P.PN ---
Subjective Date of Service: 12/18/23 Chief Complaint: Worsening confusion/failure to thrive Patient is more drowsy today. She wakes up to verbal and then drift back to sleep. No reported agitation. Physical Examination - Vital Signs Temperature: 97.7 F Blood Pressure: 109/62 Pulse: 85 Respirations: 18 Pulse Ox (%): 96 Assessment And Plan - Plan Physical Exam: GEN: Drowsy but easily arousable, NAD CV: Regular rate and rhythm, no edema Pulm: Nonlabored breathing, clear bilaterally, ABD: soft, nontender, nondistended Neuro: no focal motor deficit, drowsy but easily arousable. chavez catheter present. Diagnosis Severe Hypernatremia secondary to hypovolemia Toxic Encephalopathy Hypokalemia, Hypomagnesemia, Hypophosphatemia Acute cystitis with hematuria ALCIDES, prerenal Staph Hominis bacteremia, unknown source Hematuria, resolved Hypothyroidism Myxedema coma Bilateral cephalic vein thrombus (12/10/23) hx DVT/PE; unprovoked; s/p IVC filter thrombocytopenia, chronic NIDDM2 Dementia hx CVA Severe Hypernatremia secondary to hypovolemia Toxic Encephalopathy Hypokalemia, Hypomagnesemia, Hypophosphatemia ALCIDES, prerenal Acute cystitis with hematuria Encephalopathy related to hypernatremia and possibly myxedema. nephrology is following Hypernatremia resolved, mental status is now improving. Central line in place Patient is on TPN. She is also started on liquid diet Wean off TPN as patient's oral intake improve. Abdominal CT suggest possible gastritis. Head CT is unremarkable. Cannot do MRI due to presence of pacemaker. Repeat head CT with contrast showed no acute abnormalities. Staph Hominis bacteremia, unknown source Hematuria, resolved Fungal UTI UA suspicious for UTI. Status post IV cefepime Blood cx: (12/05): Staph Hominis in 3/4 bottles urine cx (12/04): mixed meche Urinalysis 12/15: Yeast. Continue IV vancomycin and IV Diflucan, follow repeat urine culture ID Dr. Ko is following. repeat blood cx (12/08): NGTD Patient is being evaluated for LTAC placement. Hypothyroidism Myxedema coma TSH significantly elevated 61.5 (12/05) Reported compliance with thyroid hormone supplementation. Continue IV Synthroid. Continue IV hydrocortisone. 1 more day of IV hydrocortisone. Bilateral cephalic vein thrombus (12/10/23) hx DVT/PE; unprovoked ; s/p IVC filter extremity u/s (12/09): +DVT of right and left cephalic veins(superficial vein thrombosis) Status post IVC filter. Hold Lovenox due to decreasing hemoglobin. SCD for DVT prophylaxis. Thrombocytopenia, chronic Anemia No evidence of GI bleed. Monitor CBC Transfuse as needed for hemoglobin less than 7. NIDDM2 accu-cheks, SSI with hyperglycemia secondary to TPN continue Semglee. Wean off TPN if patient tolerates diet. Dementia hx CVA Resume home medications once patient is able to tolerate p.o. VTE: Lovenox Code: DNR
[2023-12-18] MEDS: AMINO ACIDS IV SCH (16:47)
[2023-12-18] MEDS: DEXTROSE IV SCH (16:47)
[2023-12-18] MEDS: POTASSIUM PHOS IV SCH (16:47)
[2023-12-18] MEDS: MAGNESIUM IV SCH (16:47)
[2023-12-19 05:59] LABS: Anion Gap 9.7 mEq/L (5.0-15.0); Phosphorus 2.4 mg/dL (2.5-4.9); Potassium 3.7 mEq/L (3.5-5.1)
[2023-12-19] MEDS: POTASSIUM PHOS IN 0.9 % NACL 15 MMOL/250 ML BAG IV ONE (06:21)
--- NOTE | 2023-12-19 15:18 | P.PN ---
Nephrology Pt remains lethargic, but arousable this AM although minimally converse, remains on PPN. H/H has been downward trending over the past week. BP low this afternoon Vitals, medications, blood work and imaging reviewed in the chart General: Lethargic but NAD HEENT: Atraumatic, not on O2 Respiratory: No distress, non tachypnec, no wheezing appreciated Cardiovascular: No sig edema, Regular rate/rhythm mostly Gastrointestinal: Mildly distended, No guarding, non tender, chavez present Musculoskeletal: Shins non tender Integumentary: No rashes Neurological: Arousable but does not open eyes today, mumbles in response to question, not spont movement noted, no tremors or myoclonus noted Conclusions/Impression: Hypernatremia with encephalopathy -Hypernatemia resolved, Na level stable, on hypotonic fluids with the PPN Hypokalemia -Resolved Hypophosphatemia, hypomagnesemia -recurrent -Recurrent, did ask pharmacy to add electrolytes to the PPN and Mg and K phos has been added. Latest phos > 2.0 AMS, encephalopathy multifactorial. Hypothyroidism related myxedema -Cont to monitor closely with management per IM. F/u TFTs Abnormal findings in urine, pyuria. Yeast in culture -Cont IV diflucan Hypotension, unspecified -BP less than 100 systolic this afternoon, will dose Albumin x 1, monitor closely. H/H has downward trended notably, pt on GI ppx but will defer to IM to monitor/investigate drop
[2023-12-19] MEDS: ALBUMIN HUMAN 25% 100 ML IV ONE (15:39)
--- NOTE | 2023-12-19 16:18 | P.PN ---
Subjective Date of Service: 12/19/23 Chief Complaint: Worsening confusion/failure to thrive No major changes from yesterday. Patient more awake and interactive. She is tolerating her diet. Physical Examination - Vital Signs Temperature: 98.1 F Blood Pressure: 91/53 Pulse: 84 Respirations: 12 Pulse Ox (%): 97 Assessment And Plan - Plan Physical Exam: GEN: Awake, NAD CV: Regular rate and rhythm, no edema Pulm: Nonlabored breathing, clear bilaterally, ABD: soft, nontender, nondistended Neuro: no focal motor deficit, chavez catheter present. Diagnosis Severe Hypernatremia secondary to hypovolemia Toxic Encephalopathy Hypokalemia, Hypomagnesemia, Hypophosphatemia Acute cystitis with hematuria ALCIDES, prerenal Staph Hominis bacteremia, unknown source Hematuria, resolved Hypothyroidism Myxedema coma Bilateral cephalic vein thrombus (12/10/23) hx DVT/PE; unprovoked; s/p IVC filter thrombocytopenia, chronic NIDDM2 Dementia hx CVA Severe Hypernatremia secondary to hypovolemia Toxic Encephalopathy Hypokalemia, Hypomagnesemia, Hypophosphatemia ALCIDES, prerenal Acute cystitis with hematuria Encephalopathy related to hypernatremia and possibly myxedema. nephrology is following Hypernatremia resolved, mental status is now improving. Central line in place Patient is on TPN. Advance diet as tolerated. Wean off TPN as patient's oral intake improve. Abdominal CT suggest possible gastritis. Head CT is unremarkable. Cannot do MRI due to presence of pacemaker. Repeat head CT with contrast showed no acute abnormalities. Staph Hominis bacteremia, unknown source Hematuria, resolved Fungal UTI UA suspicious for UTI. Status post IV cefepime Blood cx: (12/05): Staph Hominis in 3/4 bottles urine cx (12/04): mixed meche Urinalysis 12/15: Yeast. Urine culture 12/15 grew yeast. Continue IV vancomycin and IV Diflucan. ID Dr. Ko is following. repeat blood cx (12/08): NGTD Patient is being evaluated for LTAC placement. Hypothyroidism Myxedema coma TSH significantly elevated 61.5 (12/05) Reported compliance with thyroid hormone supplementation. Transition IV Synthroid to oral Synthroid. Discontinue hydrocortisone. Bilateral cephalic vein thrombus (12/10/23) hx DVT/PE; unprovoked ; s/p IVC filter extremity u/s (12/09): +DVT of right and left cephalic veins(superficial vein thrombosis) Status post IVC filter. Hold Lovenox due to decreasing hemoglobin. SCD for DVT prophylaxis. Thrombocytopenia, chronic Anemia No evidence of GI bleed. Monitor CBC Transfuse as needed for hemoglobin less than 7. NIDDM2 accu-cheks, SSI with hyperglycemia secondary to TPN continue Semglee. Wean off TPN if patient tolerates diet. Dementia Negative head CT. VTE: SCD Code: DNR
[2023-12-20] MEDS: LEVOTHYROXINE SOD 0.088 MG TAB PO SCH (05:06)
[2023-12-20 05:38] LABS: Anion Gap 12.8 mEq/L (5.0-15.0); Phosphorus 2.4 mg/dL (2.5-4.9); Potassium 3.8 mEq/L (3.5-5.1)
[2023-12-20] MEDS: POTASSIUM PHOS IN 0.9 % NACL 15 MMOL/250 ML BAG IV ONE (06:39)
[2023-12-20] MEDS: VANCOMYCIN 0.75 GM in NA CHLORIDE 0.9% 150 ML IVPB SCH (12:59)
--- NOTE | 2023-12-20 15:56 | P.PN ---
Subjective Date of Service: 12/20/23 Chief Complaint: Worsening confusion/failure to thrive Patient has periods during the day where she is very much awake and interactive and able to eat and interact. She will drifts back to sleep in between this periods. She is tolerating her diet. Physical Examination - Vital Signs Temperature: 97.6 F Blood Pressure: 110/81 Pulse: 93 Respirations: 18 Pulse Ox (%): 95 Assessment And Plan - Plan Physical Exam: GEN: Awake, NAD CV: Regular rate and rhythm, no edema Pulm: Nonlabored breathing, clear bilaterally, ABD: soft, nontender, nondistended Neuro: no focal motor deficit, chavez catheter present. Diagnosis Severe Hypernatremia secondary to hypovolemia Toxic Encephalopathy Hypokalemia, Hypomagnesemia, Hypophosphatemia Acute cystitis with hematuria ALCIDES, prerenal Staph Hominis bacteremia, unknown source Hematuria, resolved Hypothyroidism Myxedema coma Bilateral cephalic vein thrombus (12/10/23) hx DVT/PE; unprovoked; s/p IVC filter thrombocytopenia, chronic NIDDM2 Dementia hx CVA Severe Hypernatremia secondary to hypovolemia Toxic Encephalopathy Hypokalemia, Hypomagnesemia, Hypophosphatemia ALCIDES, prerenal Acute cystitis with hematuria Encephalopathy related to hypernatremia and possibly myxedema. nephrology is following Hypernatremia resolved, mental status has improved. Central line in place Patient is on TPN. Patient is eating only 10% of her meals per nursing staff. Dobhoff for tube feeding and discontinue TPN if possible Abdominal CT suggest possible gastritis. Head CT is unremarkable. Cannot do MRI due to presence of pacemaker. Repeat head CT with contrast showed no acute abnormalities. Staph Hominis bacteremia, unknown source Hematuria, resolved Fungal UTI UA suspicious for UTI. Status post IV cefepime Blood cx: (12/05): Staph Hominis in 3/4 bottles urine cx (12/04): mixed meche Urinalysis 12/15: Yeast. Urine culture 12/15 grew yeast. Continue IV vancomycin and IV Diflucan. IV vancomycin day 10 after negative repeat blood culture ID Dr. Ko is following. repeat blood cx (12/08): NGTD Patient is being evaluated for LTAC placement. Hypothyroidism Myxedema coma TSH significantly elevated 61.5 (12/05) Reported compliance with thyroid hormone supplementation. Transition IV Synthroid to oral Synthroid. Status post IV hydrocortisone. Discontinued on 12/18. Bilateral cephalic vein thrombus (12/10/23) hx DVT/PE; unprovoked ; s/p IVC filter extremity u/s (12/09): +DVT of right and left cephalic veins(superficial vein thrombosis) Status post IVC filter. Hold Lovenox due to decreasing hemoglobin. SCD for DVT prophylaxis. Thrombocytopenia, chronic Anemia No evidence of GI bleed. Monitor CBC Transfuse as needed for hemoglobin less than 7. NIDDM2 accu-cheks, SSI with hyperglycemia secondary to TPN continue Semglee. Wean off TPN if patient tolerates diet or able to start NG tube feeding. Dementia Negative head CT x 2.. VTE: SCD Code: DNR
[2023-12-20] MEDS: AMINO ACIDS 5 %/DEXTROSE 20 % 2,000 ML, Lipids 20% 250 ML with MULTIVITAMINS INJ 10 ML,... IV SCH (17:30)
--- NOTE | 2023-12-20 21:29 | P.PN ---
Date of Service: 12/20/23 Vital Signs Temp Pulse Resp BP Pulse Ox 97.0 F 94 H 16 110/62 95 12/20/23 20:00 12/20/23 20:00 12/20/23 20:00 12/20/23 20:00 12/20/23 20:00 Medications Acetaminophen (Acetaminophen 500 Mg Tab) 500 mg PO Q6H PRN PRN Reason: TEMP > 100' F Glucagon (Glucagon 1 Mg/Vial) 1 mg IM 1X PRN PRN Reason: HYPOGLYCEMIA Hydralazine HCl (Hydralazine Hcl 20 Mg/Ml Vial) 10 mg IV Q6HP PRN PRN Reason: FOR SBP>160 OR DBP>100 MMHG Dextrose (D10w 500 Ml Ivpb) 500 mls @ 0 mls/hr IV .Q0M JENNA Dextrose (Dextrose 10% Water Iv Soln.) 125 mls @ 0 mls/hr IV PRN PRN; Protocol PRN Reason: HYPOGLYCEMIA Fluconazole (Diflucan 200 Mg/100 Ml Ivpb (Premix)) 200 mg in 100 mls @ 100 ml s/hr IV Q24H JENNA; Protocol Last Admin: 12/20/23 17:30 Dose: 100 mls Multivitamins 10 ml/ Potassium Phosphate 66 meq/ Magnesium Sulfate 2 gm/ AMINO ACIDS 5 %/DEXTROSE 20 %/ Fat Emulsion Intravenous 2,279 mls @ 70 mls/hr IV [id number] JENNA Last Admin: 12/20/23 17:30 Dose: 2,279 mls Potassium Phosphate 66 meq/Magnesium Sulfate 2 gm/ AMINO ACIDS 5 %/DEXTROSE 20 % 2,019 mls @ 70 mls/hr IV [email or web address] JENNA Vancomycin HCl 0.75 gm/ Sodium (Chloride) 150 mls @ 150 mls/hr IVPB Q24H JENNA; Protocol Last Admin: 12/20/23 12:59 Dose: 150 mls Insulin Glargine (Insulin Glargine 100 Unit/Ml) 10 unit SQ BEDTIME JENNA Last Admin: 12/20/23 19:54 Dose: 10 unit Insulin Human Regular (Insulin Regular (Human) 100 Unit/Ml) 0 unit SQ Q6HR JENNA; Protocol Last Admin: 12/20/23 17:29 Dose: 2 unit Levothyroxine Sodium (Levothyroxine Sod 0.088 Mg Tab) 0.088 mg PO DAILYAC [facility] Last Admin: 12/20/23 05:06 Dose: 0.088 mg Ondansetron HCl (Ondansetron 4 Mg/2 Ml Vial) 4 mg IV Q8H PRN PRN Reason: NAUSEA / VOMITING Pantoprazole Sodium (Pantoprazole 40 Mg Inj) 40 mg IVP Q12HR [facility]; Protocol Last Admin: 12/20/23 19:54 Dose: 40 mg Sodium Chloride (Sodium Chloride 0.9% 10ml Inj) 10 ml IV UD PRN PRN Reason: Diluant Sterile Water (Water For Inj,Sterile 10 Ml) 1.2 ml IM UD PRN PRN Reason: DILUTION OF MED Microbiology Results 12/06/23 16:20 Blood - Blood Aerobic Blood Culture - Final Staph Hominis 12/06/23 16:20 Blood - Blood Blood Culture Gram Stain - Final 12/06/23 16:20 Blood - Blood Anaerobic Blood Culture - Final No growth in 5 days. 12/06/23 18:16 Blood - Blood Aerobic Blood Culture - Final Staph Hominis 12/06/23 18:16 Blood - Blood Blood Culture Gram Stain - Final 12/06/23 18:16 Blood - Blood Anaerobic Blood Culture - Final Staphylococcus Hominis 12/06/23 18:16 Blood - Blood Gram Stain - Final Assessment/ Plan: Nephrology No dyspnea No chest pain No acute events overnight Limited IH/ ROS due to mental status Vitals, medications, blood work and imaging reviewed in the chart General: NAD HEENT: Atraumatic Neck: Supple Respiratory: Clear to auscultation bilaterally, Normal air movement Cardiovascular: LE Edema 1+, Regular rate/rhythm Gastrointestinal: Non-distended, No guarding Musculoskeletal: No clubbing, No warmth Integumentary: No rashes, No cyanosis Neurological: Awake Laboratory Data (last 24 hrs) 12/06/23 12/06/23 12/06/23 16:20 16:20 16:20 WBC 3.60 L Hgb 11.9 L Hct 37.3 Plt Count 59 L PT 13.3 H INR 1.19 APTT 26.7 Sodium 152 H* Potassium 2.8 L BUN 53 H Creatinine 1.35 H Glucose 115 H Total Bilirubin 1.3 H AST 16 ALT 26 Alkaline Phosphatase 50 Imagings Data: EXAM DESCRIPTION: Coreen Single View9/11/2023 4:34 pm CLINICAL HISTORY: Confusion COMPARISON: September 2023 FINDINGS: The lungs appear clear of acute infiltrate. The heart is mildly enlarged. Pacemaker leads are in place. IMPRESSION: No acute abnormalities displayed EXAM DESCRIPTION: CT - Head Brain Wo Cont - 12/06/2023 4:40 pm CLINICAL HISTORY: Alteration of awareness/confusion COMPARISON: August 2023 TECHNIQUE: Computed axial tomography of the head was obtained. IV contrast was not requested. All CT scans are performed using dose optimization technique as appropriate and may include automated exposure control or mA/KV adjustment according to patient size. FINDINGS: An intracranial bleed is not seen The ventricles are normal in caliber No extra-axial fluid collection is noted. Prominent cerebral atrophy Mild low-density areas within periventricular, deep and subcortical white matter likely represent ischemic changes secondary to small vessel disease. Fluid within the sinuses/ mastoids is not seen. IMPRESSION: No acute intracranial abnormality is seen If patient's symptoms persist MRI of the brain would be recommended Conclusions/Impression: Hypernatremia with encephalopathy Hyponatremia -Adjust Clinimax prn -Continue hydrocortisone Hypokalemia -Replete prn Hypomagnesemia -Replete prn Hypophosphatemia -Replete as ordered Peripheral Edema -Daily weight DM II with CKD/ Proteinuria -RISS prn Hypoalbuminemia -Continue Clinimax -Advance diet as tolerated Anemia in chronic illness -Monitor H&H -PRBC prn Hypothyroidism, uncontrolled -Continue IV Levothyroxine Bacteremia -Continue Abx -ID following -Follow up urine culture Hospitalist note reviewed Case reviewed with Dr. Fregoso
[2023-12-21 05:30] LABS: Absolute Basophils 0.1 K/uL (0-0.5); Absolute Eosinophils 0.1 K/uL (0-0.5); Absolute Lymphocytes (CBC) 0.5 K/uL (0.7-4.9); Absolute Monocytes 0.3 K/uL (0.1-1.3); Absolute Neutrophil 4.3 K/uL (1.8-8.0); Basophils % 1.1 % (0-1.3); Eosinophils % 2.1 % (0-4.4); Hematocrit 24.6 % (36.0-45.0); Lymphocytes % 10.3 % (15.3-44.8); MCH 31.9 pg (27.0-35.0); MCHC 32.5 g/dL (32.0-36.0); MPV 10.8 fL (7.6-11.3); Monocytes % 5.3 % (3.3-12.3); Neutrophils % 81.2 % (41.7-73.7); Nucleated Red Blood Cells % 0.1 % (0-0); Platelets 129 thou/uL (152-406); RBC Red Blood Cell Count 2.51 M/uL (3.86-4.86); Red Cell Distribution Width 19.8 % (12.1-15.2)
[2023-12-21 05:55] LABS: Albumin 2.6 g/dL (3.4-5.0); Albumin/Globulin Ratio 0.9 (1.1-1.8); Anion Gap 9.1 mEq/L (5.0-15.0); Bilirubin Total 0.5 mg/dL (0.2-1.0); Globulin 2.9 g/dL (2.3-3.5); Magnesium 2.1 mg/dL (1.6-2.4); Phosphorus 2.7 mg/dL (2.5-4.9); Potassium 4.1 mEq/L (3.5-5.1); Protein, Total 5.5 g/dL (6.4-8.2); Uric Acid 2.8 mg/dL (2.6-6.0)
--- NOTE | 2023-12-21 09:42 | P.PN ---
Date of Service: 12/21/23 Subjective: More awake and interactive. Able to respond to some questions in few short words/sentences Oriented x1. Able to state her name today daughter updated at bedside. Agreeable to dobhoff placement no new issues overnight reported by nursing staff ROS: 10 point ROS unable to fully obtain due to mentation Physical Exam: GEN: AOx1, more awake/interactive. Responding to some questions in few words. Mostly appropriate CV: Regular rate and rhythm, trace lower extremity edema Pulm: Nonlabored respirations on room air, diminished bilaterally at bases ABD: soft, mild discomfort with palpation, nondistended Neuro: moves all extremities spontaneously, AOx1 chavez draining light yellow urine (placed in ED) Problem List: Severe Hypernatremia secondary to hypovolemia; resolved Toxic Encephalopathy Hypokalemia, Hypomagnesemia, Hypophosphatemia ALCIDES, prerenal Staph Hominis bacteremia, unknown source Hematuria, resolved Fungal UTI Hypothyroidism Myxedema coma Bilateral cephalic vein thrombus (12/10/23) hx DVT/PE; unprovoked; s/p IVC filter thrombocytopenia, chronic NIDDM2 Dementia hx CVA Severe Hypernatremia secondary to hypovolemia Toxic Encephalopathy Hypokalemia, Hypomagnesemia, Hypophosphatemia ALCIDES, prerenal Encephalopathy related to hypernatremia and possibly myxedema. Hypernatremia resolved, mental status has improved. CT head x3 were all negative for any acute findings. (12/05, 12/12, 12/15) unable to do MRI due to presence of pacemaker CT abdomen (12/12): Possible gastritis. Nephrology is following Patient is eating only 10% of her meals per nursing staff. Seemed to improve in last ~48hrs Central line placed 12/09 after PICC was unable to be placed d/t resistance. Has been on TPN via central line since ~12/09 Discussed dobhoff for tube feedings with patient/family. family agreeable to dobhoff 12/20 plan to Wean off TPN once able to start tube feeding. dobhoff while waiting for improved oral feeding, possibly needing PEG if not increasing oral intake enough Staph Hominis bacteremia, unknown source Hematuria, resolved Fungal UTI Blood cx: (12/05): Staph Hominis in 3/4 bottles repeat blood cx (12/09): NGTD previously on rocephin / vanc (12/06-12/09)and IV cefepime (12/09-12/10) continue IV vancomycin (12/10-); ~day 11 since negative cultures urine cx (12/04): mixed meche repeat Urine cx (12/15): grew yeast continue IV diflucan (12/15-) ID - Dr. Ko is following. recommends 2 weeks total treatment Patient is being evaluated for SNF Hypothyroidism Myxedema coma TSH significantly elevated 61.5 (12/05) daughter initialy reported no home meds taken for several months s/p IV hydrocortisone. Dc'd 12/18. s/p IV Synthroid; transitioned to oral Synthroid 12/19 Bilateral cephalic vein thrombus (12/10/23) hx DVT/PE; unprovoked ; s/p IVC filter extremity u/s (12/09): +thrombus of right and left cephalic veins (superficial vein thrombosis) h/o dvt/PE s/p prior IVC filter. Lovenox held due to decreasing hemoglobin. and low platelets SCD for DVT prophylaxis. Thrombocytopenia, chronic No evidence of GI bleed. Daily labs. NIDDM2 accu-cheks, SSI with hyperglycemia secondary to TPN continue Semglee. VTE: SCD for now Code: DNR Dispo: anticipate SNF - pending oral intake / nutrition, may need PEG
--- NOTE | 2023-12-21 13:12 | PN ---
Subjective: Patient is more alert and awake. Denies any other problem. Objective: Vital Signs: Reviewed. Lungs: Clear to auscultation. Heart: S1, S2. Regular. Abdomen: Soft, nontender. Bowel sounds present. Extremity: No edema. Currently, on TPN, fluconazole, and vancomycin. Assessment And Plan: Staph hominis bacteremia. Myxedema coma, improving slowly. Funguria. We will follow the patient as needed. NF/MODL Voice ID: [id number] Report ID: [id number]
--- NOTE | 2023-12-21 17:13 | P.PN ---
Date of Service: 12/21/23 Vital Signs Temp Pulse Resp BP Pulse Ox 97.3 F 98 H 19 114/75 95 12/21/23 08:00 12/21/23 08:00 12/21/23 08:00 12/21/23 08:00 12/21/23 08:00 Medications Acetaminophen (Acetaminophen 500 Mg Tab) 500 mg PO Q6H PRN PRN Reason: TEMP > 100' F Glucagon (Glucagon 1 Mg/Vial) 1 mg IM 1X PRN PRN Reason: HYPOGLYCEMIA Hydralazine HCl (Hydralazine Hcl 20 Mg/Ml Vial) 10 mg IV Q6HP PRN PRN Reason: FOR SBP>160 OR DBP>100 MMHG Dextrose (D10w 500 Ml Ivpb) 500 mls @ 0 mls/hr IV .Q0M JENNA Dextrose (Dextrose 10% Water Iv Soln.) 125 mls @ 0 mls/hr IV PRN PRN; Protocol PRN Reason: HYPOGLYCEMIA Fluconazole (Diflucan 200 Mg/100 Ml Ivpb (Premix)) 200 mg in 100 mls @ 100 ml s/hr IV Q24H JENNA; Protocol Last Admin: 12/20/23 17:30 Dose: 100 mls Multivitamins 10 ml/ Potassium Phosphate 66 meq/ Magnesium Sulfate 2 gm/ AMINO ACIDS 5 %/DEXTROSE 20 %/ Fat Emulsion Intravenous 2,279 mls @ 70 mls/hr IV [id number] JENNA Last Admin: 12/20/23 17:30 Dose: 2,279 mls Potassium Phosphate 66 meq/Magnesium Sulfate 2 gm/ AMINO ACIDS 5 %/DEXTROSE 20 % 2,019 mls @ 70 mls/hr IV [id number] JENNA Vancomycin HCl 0.75 gm/ Sodium (Chloride) 150 mls @ 150 mls/hr IVPB Q24H JENNA; Protocol Last Admin: 12/21/23 15:07 Dose: 150 mls Insulin Glargine (Insulin Glargine 100 Unit/Ml) 10 unit SQ BEDTIME JENNA Last Admin: 12/20/23 19:54 Dose: 10 unit Insulin Human Regular (Insulin Regular (Human) 100 Unit/Ml) 0 unit SQ Q6HR JENNA; Protocol Last Admin: 12/21/23 15:10 Dose: 2 unit Levothyroxine Sodium (Levothyroxine Sod 0.088 Mg Tab) 0.088 mg PO DAILYAC [facility] Last Admin: 12/21/23 05:16 Dose: 0.088 mg Ondansetron HCl (Ondansetron 4 Mg/2 Ml Vial) 4 mg IV Q8H PRN PRN Reason: NAUSEA / VOMITING Pantoprazole Sodium (Pantoprazole 40 Mg Inj) 40 mg IVP Q12HR [facility]; Protocol Last Admin: 12/21/23 09:43 Dose: 40 mg Sodium Chloride (Sodium Chloride 0.9% 10ml Inj) 10 ml IV UD PRN PRN Reason: Diluant Sterile Water (Water For Inj,Sterile 10 Ml) 1.2 ml IM UD PRN PRN Reason: DILUTION OF MED Microbiology Results 12/06/23 16:20 Blood - Blood Aerobic Blood Culture - Final Staph Hominis 12/06/23 16:20 Blood - Blood Blood Culture Gram Stain - Final 12/06/23 16:20 Blood - Blood Anaerobic Blood Culture - Final No growth in 5 days. 12/06/23 18:16 Blood - Blood Aerobic Blood Culture - Final Staph Hominis 12/06/23 18:16 Blood - Blood Blood Culture Gram Stain - Final 12/06/23 18:16 Blood - Blood Anaerobic Blood Culture - Final Staphylococcus Hominis 12/06/23 18:16 Blood - Blood Gram Stain - Final Assessment/ Plan: Nephrology No dyspnea No chest pain No acute events overnight Limited IH/ ROS due to mental status Vitals, medications, blood work and imaging reviewed in the chart General: NAD HEENT: Atraumatic Neck: Supple Respiratory: Clear to auscultation bilaterally, Normal air movement Cardiovascular: LE Edema 1+, Regular rate/rhythm Gastrointestinal: Non-distended, No guarding Musculoskeletal: No clubbing, No warmth Integumentary: No rashes, No cyanosis Neurological: Awake Laboratory Data (last 24 hrs) 12/06/23 12/06/23 12/06/23 16:20 16:20 16:20 WBC 3.60 L Hgb 11.9 L Hct 37.3 Plt Count 59 L PT 13.3 H INR 1.19 APTT 26.7 Sodium 152 H* Potassium 2.8 L BUN 53 H Creatinine 1.35 H Glucose 115 H Total Bilirubin 1.3 H AST 16 ALT 26 Alkaline Phosphatase 50 Imagings Data: EXAM DESCRIPTION: Coreen Single View9/11/2023 4:34 pm CLINICAL HISTORY: Confusion COMPARISON: September 2023 FINDINGS: The lungs appear clear of acute infiltrate. The heart is mildly enlarged. Pacemaker leads are in place. IMPRESSION: No acute abnormalities displayed EXAM DESCRIPTION: CT - Head Brain Wo Cont - 12/06/2023 4:40 pm CLINICAL HISTORY: Alteration of awareness/confusion COMPARISON: August 2023 TECHNIQUE: Computed axial tomography of the head was obtained. IV contrast was not requested. All CT scans are performed using dose optimization technique as appropriate and may include automated exposure control or mA/KV adjustment according to patient size. FINDINGS: An intracranial bleed is not seen The ventricles are normal in caliber No extra-axial fluid collection is noted. Prominent cerebral atrophy Mild low-density areas within periventricular, deep and subcortical white matter likely represent ischemic changes secondary to small vessel disease. Fluid within the sinuses/ mastoids is not seen. IMPRESSION: No acute intracranial abnormality is seen If patient's symptoms persist MRI of the brain would be recommended Conclusions/Impression: Hypernatremia with encephalopathy Hyponatremia -Adjust Clinimax prn Hypokalemia -Replete prn Hypomagnesemia -Replete prn Hypophosphatemia -Replete as ordered Peripheral Edema with elevated BNP -Daily weight -Lasix prn DM II with CKD/ Proteinuria Hyperglycemia -RISS -Continue Semglee Hypoalbuminemia -Continue Clinimax -Advance diet as tolerated Anemia in chronic illness -Monitor H&H -PRBC prn Hypothyroidism, uncontrolled -Continue Levothyroxine Bacteremia -Continue Abx -ID following Acute Yeast Cystitis -Continue Diflucan Hospitalist note reviewed
[2023-12-21] MEDS: AMINO ACIDS 5 %/DEXTROSE 20 % 2,000 ML with POTASSIUM PHOS 66 MEQ, MAGNESIUM 50% 2 GM IV SCH (18:13)
[2023-12-22 06:01] LABS: Hematocrit 22.6 % (36.0-45.0); Hemoglobin 7.6 g/dL (12.0-15.0); MCH 32.5 pg (27.0-35.0); MCHC 33.5 g/dL (32.0-36.0); MPV 9.6 fL (7.6-11.3); Platelets 105 thou/uL (152-406); RBC Red Blood Cell Count 2.33 M/uL (3.86-4.86); Red Cell Distribution Width 20.1 % (12.1-15.2)
[2023-12-22 06:22] LABS: Albumin 2.4 g/dL (3.4-5.0); Albumin/Globulin Ratio 0.8 (1.1-1.8); Anion Gap 10.1 mEq/L (5.0-15.0); Bilirubin Total 0.5 mg/dL (0.2-1.0); Globulin 2.9 g/dL (2.3-3.5); Magnesium 2.2 mg/dL (1.6-2.4); Potassium 4.1 mEq/L (3.5-5.1); Protein, Total 5.3 g/dL (6.4-8.2)
--- NOTE | 2023-12-22 10:13 | P.PN ---
Date of Service: 12/22/23 Subjective: more awake / talkative today. Able to respond to questions more appropriately seems to have more energy and is awake for longer periods of time today ate a few bites of breakfast no new issues ROS: 10 point ROS unable to fully obtain due to mentation Physical Exam: GEN: AOx1, more awake/interactive. Responding to some questions in few words. Mostly appropriate CV: Regular rate and rhythm, trace lower extremity edema Pulm: Nonlabored respirations on room air, diminished bilaterally at bases ABD: soft, nontender, nondistended Neuro: moves all extremities spontaneously, AOx1 chavez draining light yellow urine (placed in ED) Problem List: Severe Hypernatremia secondary to hypovolemia; resolved Toxic Encephalopathy Hypokalemia, Hypomagnesemia, Hypophosphatemia ALCIDES, prerenal Staph Hominis bacteremia, unknown source Hematuria, resolved Fungal UTI Hypothyroidism Myxedema coma Bilateral cephalic vein thrombus (12/10/23) hx DVT/PE; unprovoked; s/p IVC filter thrombocytopenia, chronic NIDDM2 Dementia hx CVA Severe Hypernatremia secondary to hypovolemia Toxic Encephalopathy Hypokalemia, Hypomagnesemia, Hypophosphatemia ALCIDES, prerenal Encephalopathy related to hypernatremia and possibly myxedema. Hypernatremia resolved, mental status has improved. CT head x3 were all negative for any acute findings. (12/05, 12/12, 12/15) unable to do MRI due to presence of pacemaker CT abdomen (12/12): Possible gastritis. Nephrology is following Patient is eating only 10% of her meals per nursing staff. Seemed to improve in last ~48hrs Central line placed 12/09 after PICC was unable to be placed d/t resistance. Has been on TPN via central line since ~12/09 Discussed dobhoff for tube feedings with patient/family. family agreeable to dobhoff 12/20 will hold off on dobhoff for now given improvement in mentation/alertness. ate a few bites of breakfast 12/21. 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 Ko is following. recommends 2 weeks total treatment Patient is being evaluated for SNF Hypothyroidism Myxedema coma TSH significantly elevated 61.5 (12/05) daughter initialy reported no home meds taken for several months s/p IV hydrocortisone. Dc'd 12/18. s/p IV Synthroid; transitioned to oral Synthroid 12/19 Bilateral cephalic vein thrombus (12/10/23) hx DVT/PE; unprovoked ; s/p IVC filter extremity u/s (12/09): +thrombus of right and left cephalic veins (superficial vein thrombosis) h/o dvt/PE s/p prior IVC filter. Lovenox held due to decreasing hemoglobin. and low platelets SCD for DVT prophylaxis. Thrombocytopenia, chronic No evidence of GI bleed. Daily labs. NIDDM2 accu-cheks, SSI with hyperglycemia secondary to TPN continue Semglee. VTE: SCD for now Code: DNR Dispo: anticipate SNF - pending oral intake / nutrition, may need PEG
--- NOTE | 2023-12-22 18:06 | PN ---
Subjective: Patient is lying in bed. Denies any headache, nausea, vomiting, chest pain, abdominal p ain, constipation, diarrhea. More alert and awake today. Objective: Vital signs: Reviewed. Lungs: Basal crackles. Heart: S1, S2. Regular. Abdomen: Soft, nontender. Bowel sounds present. Extremities: No edema. Skin: Warm and dry. Laboratory Data: WBC 3.9, hemoglobin 7.6, platelets are 105. Chemistry shows BUN of 33, creatinine 0.9. Assessment And Plan: Myxedema coma, improving bacteremia secondary to Staph hominis. Patient to fin rola her antibiotic. Continue to monitor sign for infection for WBC and fever trend, pancytopenia. C ontinue supportive care and monitor signs of infection, WBC and fever trends. NF/MODL Voice ID: [id number] Report ID: [id number]
--- NOTE | 2023-12-22 21:08 | P.PN ---
Date of Service: 12/22/23 Vital Signs Temp Pulse Resp BP Pulse Ox 98 F 98 H 18 109/69 96 12/22/23 20:00 12/22/23 20:00 12/22/23 20:00 12/22/23 20:00 12/22/23 20:00 Medications Acetaminophen (Acetaminophen 500 Mg Tab) 500 mg PO Q6H PRN PRN Reason: TEMP > 100' F Glucagon (Glucagon 1 Mg/Vial) 1 mg IM 1X PRN PRN Reason: HYPOGLYCEMIA Hydralazine HCl (Hydralazine Hcl 20 Mg/Ml Vial) 10 mg IV Q6HP PRN PRN Reason: FOR SBP>160 OR DBP>100 MMHG Dextrose (D10w 500 Ml Ivpb) 500 mls @ 0 mls/hr IV .Q0M JENNA Dextrose (Dextrose 10% Water Iv Soln.) 125 mls @ 0 mls/hr IV PRN PRN; Protocol PRN Reason: HYPOGLYCEMIA Fluconazole (Diflucan 200 Mg/100 Ml Ivpb (Premix)) 200 mg in 100 mls @ 100 mls/ hr IV Q24H JENNA; Protocol Last Admin: 12/22/23 17:27 Dose: 100 mls Vancomycin HCl 0.75 gm/ Sodium (Chloride) 150 mls @ 150 mls/hr IVPB Q24H JENNA; Protocol Stop: 12/22/23 21:59 Insulin Human Regular (Insulin Regular (Human) 100 Unit/Ml) 0 unit SQ Q6HR JENNA; Protocol Last Admin: 12/22/23 17:40 Dose: Not Given Levothyroxine Sodium (Levothyroxine Sod 0.088 Mg Tab) 0.088 mg PO DAILYAC JENNA Last Admin: 12/22/23 09:18 Dose: 0.088 mg Ondansetron HCl (Ondansetron 4 Mg/2 Ml Vial) 4 mg IV Q8H PRN PRN Reason: NAUSEA / VOMITING Pantoprazole Sodium (Pantoprazole 40 Mg Inj) 40 mg IVP Q12HR JENNA; Protocol Last Admin: 12/22/23 09:18 Dose: 40 mg Sodium Chloride (Sodium Chloride 0.9% 10ml Inj) 10 ml IV UD PRN PRN Reason: Diluant Sterile Water (Water For Inj,Sterile 10 Ml) 1.2 ml IM UD PRN PRN Reason: DILUTION OF MED Microbiology Results 12/06/23 16:20 Blood - Blood Aerobic Blood Culture - Final Staph Hominis 12/06/23 16:20 Blood - Blood Blood Culture Gram Stain - Final 12/06/23 16:20 Blood - Blood Anaerobic Blood Culture - Final No growth in 5 days. 12/06/23 18:16 Blood - Blood Aerobic Blood Culture - Final Staph Hominis 12/06/23 18:16 Blood - Blood Blood Culture Gram Stain - Final 12/06/23 18:16 Blood - Blood Anaerobic Blood Culture - Final Staphylococcus Hominis 12/06/23 18:16 Blood - Blood Gram Stain - Final Assessment/ Plan: Nephrology No dyspnea No chest pain No acute events overnight More verbal today Limited IH/ ROS due to mental status Vitals, medications, blood work and imaging reviewed in the chart General: NAD HEENT: Atraumatic Neck: Supple Respiratory: Clear to auscultation bilaterally, Normal air movement Cardiovascular: LE Edema 1+, Regular rate/rhythm Gastrointestinal: Non-distended, No guarding Musculoskeletal: No clubbing, No warmth Integumentary: No rashes, No cyanosis Neurological: Awake Laboratory Data (last 24 hrs) 12/06/23 12/06/23 12/06/23 16:20 16:20 16:20 WBC 3.60 L Hgb 11.9 L Hct 37.3 Plt Count 59 L PT 13.3 H INR 1.19 APTT 26.7 Sodium 152 H* Potassium 2.8 L BUN 53 H Creatinine 1.35 H Glucose 115 H Total Bilirubin 1.3 H AST 16 ALT 26 Alkaline Phosphatase 50 Imagings Data: EXAM DESCRIPTION: Nathant Single View12/06/2023 4:34 pm CLINICAL HISTORY: Confusion COMPARISON: September 2023 FINDINGS: The lungs appear clear of acute infiltrate. The heart is mildly enlarged. Pacemaker leads are in place. IMPRESSION: No acute abnormalities displayed EXAM DESCRIPTION: CT - Head Brain Wo Cont - 12/06/2023 4:40 pm CLINICAL HISTORY: Alteration of awareness/confusion COMPARISON: August 2023 TECHNIQUE: Computed axial tomography of the head was obtained. IV contrast was not requested. All CT scans are performed using dose optimization technique as appropriate and may include automated exposure control or mA/KV adjustment according to patient size. FINDINGS: An intracranial bleed is not seen The ventricles are normal in caliber No extra-axial fluid collection is noted. Prominent cerebral atrophy Mild low-density areas within periventricular, deep and subcortical white matter likely represent ischemic changes secondary to small vessel disease. Fluid within the sinuses/ mastoids is not seen. IMPRESSION: No acute intracranial abnormality is seen If patient's symptoms persist MRI of the brain would be recommended Conclusions/Impression: Hypernatremia with encephalopathy Hyponatremia -Adjust Clinimax prn Hypokalemia -Replete prn Hypomagnesemia -Replete prn Hypophosphatemia -Replete as ordered Peripheral Edema with elevated BNP -Daily weight -Lasix prn DM II with CKD/ Proteinuria Hyperglycemia -RISS -Continue Semglee Hypoalbuminemia -Continue Clinimax -Advance diet as tolerated -Consider PEG Anemia in chronic illness -Monitor H&H -PRBC prn Hypothyroidism, uncontrolled -Continue Levothyroxine Bacteremia -Continue Abx -ID following Acute Yeast Cystitis -Continue Diflucan Hospitalist note reviewed Case reviewed with Dr. Worthy
[2023-12-22] MEDS: VANCOMYCIN 0.75 GM in NA CHLORIDE 0.9% 150 ML IVPB SCH (21:36)
[2023-12-23 05:23] LABS: Absolute Eosinophils 0.1 K/uL (0-0.5); Absolute Lymphocytes (CBC) 0.5 K/uL (0.7-4.9); Absolute Monocytes 0.2 K/uL (0.1-1.3); Absolute Neutrophil 2.4 K/uL (1.8-8.0); Basophils % 0.9 % (0-1.3); Eosinophils % 2.7 % (0-4.4); Hemoglobin 7.4 g/dL (12.0-15.0); Lymphocytes % 16.8 % (15.3-44.8); MCH 31.6 pg (27.0-35.0); MCHC 32.3 g/dL (32.0-36.0); MCV 97.7 fL (80-100); MPV 9.4 fL (7.6-11.3); Neutrophils % 74.6 % (41.7-73.7); Nucleated Red Blood Cells % 0.2 % (0-0); Platelets 108 thou/uL (152-406); RBC Red Blood Cell Count 2.35 M/uL (3.86-4.86)
[2023-12-23 05:25] LABS: Red Cell Distribution Width 20.4 % (12.1-15.2)
[2023-12-23 05:44] LABS: Albumin 2.3 g/dL (3.4-5.0); Albumin/Globulin Ratio 0.8 (1.1-1.8); Anion Gap 10.2 mEq/L (5.0-15.0); Bilirubin Total 0.5 mg/dL (0.2-1.0); Magnesium 2.2 mg/dL (1.6-2.4); Potassium 4.2 mEq/L (3.5-5.1); Prealbumin 14.1 mg/dL (20-40); Protein, Total 5.3 g/dL (6.4-8.2)
[2023-12-23] MEDS: ENSURE HIGH PROTEIN 237 ML CAN PO SCH (08:09)
--- NOTE | 2023-12-23 10:37 | P.PN ---
Date of Service: 12/23/23 Vital Signs Temp Pulse Resp BP Pulse Ox 97.6 F 86 16 145/86 H 99 12/23/23 08:00 12/23/23 08:00 12/23/23 08:00 12/23/23 08:00 12/23/23 08:00 Medications Acetaminophen (Acetaminophen 500 Mg Tab) 500 mg PO Q6H PRN PRN Reason: TEMP > 100' F Glucagon (Glucagon 1 Mg/Vial) 1 mg IM 1X PRN PRN Reason: HYPOGLYCEMIA Hydralazine HCl (Hydralazine Hcl 20 Mg/Ml Vial) 10 mg IV Q6HP PRN PRN Reason: FOR SBP>160 OR DBP>100 MMHG Dextrose (D10w 500 Ml Ivpb) 500 mls @ 0 mls/hr IV .Q0M JENNA Dextrose (Dextrose 10% Water Iv Soln.) 125 mls @ 0 mls/hr IV PRN PRN; Protocol PRN Reason: HYPOGLYCEMIA Fluconazole (Diflucan 200 Mg/100 Ml Ivpb (Premix)) 200 mg in 100 mls @ 100 ml s/hr IV Q24H JENNA; Protocol Last Admin: 12/22/23 17:27 Dose: 100 mls Insulin Human Regular (Insulin Regular (Human) 100 Unit/Ml) 0 unit SQ Q6HR JENNA; Protocol Last Admin: 12/23/23 05:46 Dose: Not Given Levothyroxine Sodium (Levothyroxine Sod 0.088 Mg Tab) 0.088 mg PO DAILYAC [facility] Last Admin: 12/23/23 05:47 Dose: 0.088 mg Nutritional Formula (Ensure High Protein 237 Ml Can) 237 ml PO BID JENNA Last Admin: 12/23/23 08:09 Dose: 237 ml Ondansetron HCl (Ondansetron 4 Mg/2 Ml Vial) 4 mg IV Q8H PRN PRN Reason: NAUSEA / VOMITING Pantoprazole Sodium (Pantoprazole 40 Mg Inj) 40 mg IVP Q12HR JENNA; Protocol Last Admin: 12/23/23 08:01 Dose: 40 mg Sodium Chloride (Sodium Chloride 0.9% 10ml Inj) 10 ml IV UD PRN PRN Reason: Diluant Sterile Water (Water For Inj,Sterile 10 Ml) 1.2 ml IM UD PRN PRN Reason: DILUTION OF MED Microbiology Results 12/06/23 16:20 Blood - Blood Aerobic Blood Culture - Final Staph Hominis 12/06/23 16:20 Blood - Blood Blood Culture Gram Stain - Final 12/06/23 16:20 Blood - Blood Anaerobic Blood Culture - Final No growth in 5 days. 12/06/23 18:16 Blood - Blood Aerobic Blood Culture - Final Staph Hominis 12/06/23 18:16 Blood - Blood Blood Culture Gram Stain - Final 12/06/23 18:16 Blood - Blood Anaerobic Blood Culture - Final Staphylococcus Hominis 12/06/23 18:16 Blood - Blood Gram Stain - Final Assessment/ Plan: Nephrology No dyspnea No chest pain No acute events overnight Vitals, medications, blood work and imaging reviewed in the chart General: NAD HEENT: Atraumatic Neck: Supple Respiratory: Clear to auscultation bilaterally, Normal air movement Cardiovascular: LE Edema 1+, Regular rate/rhythm Gastrointestinal: Non-distended, No guarding Musculoskeletal: No clubbing, No warmth Integumentary: No rashes, No cyanosis Neurological: Awake [place]lev[place] light Laboratory Data (last 24 hrs) 12/06/23 12/06/23 12/06/23 16:20 16:20 16:20 WBC 3.60 L Hgb 11.9 L Hct 37.3 Plt Count 59 L PT 13.3 H INR 1.19 APTT 26.7 Sodium 152 H* Potassium 2.8 L BUN 53 H Creatinine 1.35 H Glucose 115 H Total Bilirubin 1.3 H AST 16 ALT 26 Alkaline Phosphatase 50 Imagings Data: EXAM DESCRIPTION: Coreen Single View12/06/2023 4:34 pm CLINICAL HISTORY: Confusion COMPARISON: September 2023 FINDINGS: The lungs appear clear of acute infiltrate. The heart is mildly enlarged. Pacemaker leads are in place. IMPRESSION: No acute abnormalities displayed EXAM DESCRIPTION: CT - Head Brain Wo Cont - 12/06/2023 4:40 pm CLINICAL HISTORY: Alteration of awareness/confusion COMPARISON: August 2023 TECHNIQUE: Computed axial tomography of the head was obtained. IV contrast was not requested. All CT scans are performed using dose optimization technique as appropriate and may include automated exposure control or mA/KV adjustment according to patient size. FINDINGS: An intracranial bleed is not seen The ventricles are normal in caliber No extra-axial fluid collection is noted. Prominent cerebral atrophy Mild low-density areas within periventricular, deep and subcortical white matter likely represent ischemic changes secondary to small vessel disease. Fluid within the sinuses/ mastoids is not seen. IMPRESSION: No acute intracranial abnormality is seen If patient's symptoms persist MRI of the brain would be recommended Conclusions/Impression: Hypernatremia with encephalopathy Hyponatremia -Maintain adequate nutrition and hydration Hypokalemia Hypomagnesemia Hypophosphatemia -Monitor levels & replete prn Peripheral Edema with elevated BNP -Daily weight -Lasix prn DM II with CKD/ Proteinuria Hyperglycemia -RISS Hypoalbuminemia -Advance diet as tolerated; continue Ensure -Consider PEG Anemia in chronic illness -Monitor H&H -PRBC prn Hypothyroidism, uncontrolled -Continue Levothyroxine Acute Yeast Cystitis -Continue Diflucan Hospitalist note reviewed Case reviewed with Dr. Worthy
--- NOTE | 2023-12-23 11:10 | P.PN ---
Date of Service: 12/23/23 Subjective: appears to have slightly more energy/ more talkative each day over the last few days able to eat few bites of breakfast with nursing assistance tolerated few sips of water ROS: 10 point ROS unable to fully obtain due to mentation Physical Exam: GEN: AOx1, more awake/interactive. CV: Regular rate and rhythm, trace lower extremity edema Pulm: Nonlabored respirations on room air, diminished bilaterally at bases ABD: soft, nontender, nondistended Neuro: moves all extremities spontaneously, AOx1 chavez draining light yellow urine (placed in ED) Problem List: Severe Hypernatremia secondary to hypovolemia; resolved Toxic Encephalopathy Hypokalemia, Hypomagnesemia, Hypophosphatemia ALCIDES, prerenal Staph Hominis bacteremia, unknown source Hematuria, resolved Fungal UTI Hypothyroidism Myxedema coma Bilateral cephalic vein thrombus (12/10/23) hx DVT/PE; unprovoked; s/p IVC filter thrombocytopenia, chronic NIDDM2 Dementia hx CVA Severe Hypernatremia secondary to hypovolemia Toxic Encephalopathy Hypokalemia, Hypomagnesemia, Hypophosphatemia ALCIDES, prerenal Encephalopathy related to hypernatremia and possibly myxedema. Hypernatremia resolved, mental status has improved. CT head x3 were all negative for any acute findings. (12/05, 12/12, 12/15) unable to do MRI due to presence of pacemaker CT abdomen (12/12): Possible gastritis. Nephrology is following Patient is eating only 10% of her meals per nursing staff. Seemed to improve in last ~48hrs Central line placed 12/09 after PICC was unable to be placed d/t resistance. s/p TPN (~12/09-12/20) Discussed dobhoff for tube feedings with patient/family. family agreeable to dobhoff 12/20 will hold off on dobhoff for now given improvement in mentation/alertness. will reeval dobhoff/PEG in next 24hours assessment coordinator consult for calorie count Staph Hominis bacteremia, unknown source Hematuria, resolved Fungal UTI Blood cx: (12/05): Staph Hominis in 3/4 bottles repeat blood cx (12/09): NGTD previously on rocephin / vanc (12/06-12/09)and IV cefepime (12/09-12/10) s/p ~2 weeks of IV vancomycin (12/06-12/21) urine cx (12/04): mixed meche repeat Urine cx (12/15): grew yeast continue IV diflucan (12/15-) ID - Dr. Ko is following. Patient is being evaluated for SNF - awaiting nutrition status / if needs PEG Hypothyroidism Myxedema coma TSH significantly elevated 61.5 (12/05) daughter initialy reported no home meds taken for several months s/p IV hydrocortisone. Dc'd 12/18. s/p IV Synthroid; transitioned to oral Synthroid 12/19 Bilateral cephalic vein thrombus (12/10/23) hx DVT/PE; unprovoked ; s/p IVC filter extremity u/s (12/09): +thrombus of right and left cephalic veins (superficial vein thrombosis) h/o dvt/PE s/p prior IVC filter. Lovenox held due to decreasing hemoglobin. and low platelets SCD for DVT prophylaxis. Thrombocytopenia, chronic No evidence of GI bleed. Daily labs. NIDDM2 accu-cheks, SSI with hyperglycemia secondary to TPN continue Semglee. VTE: SCD for now Code: DNR Dispo: anticipate SNF - pending oral intake / nutrition, may need PEG
--- NOTE | 2023-12-23 16:27 | PN ---
Subjective: The patient is lying in bed. Denies any headache, nausea, vomiting, chest pain, abdomin al pain, constipation, or diarrhea. Objective: Vital Signs: Reviewed. Lungs: Clear to auscultation. Heart: S1, S2. Regular. Abdomen: Soft, nontender. Bowel sounds present. Extremities: No edema. Laboratory Data: Reviewed. Assessment And Plan: Bacteremia secondary to Staphylococcus hominis. Continue vancomycin to complet e a 14-day course. We will follow the patient as needed. Pancytopenia. Myxedema coma, improving. Continue supportive care. We will follow the patient as needed. NF/MODL Voice ID: [id number] Report ID: [id number]
[2023-12-24 06:39] LABS: Hemoglobin 7.4 g/dL (12.0-15.0); MCH 31.6 pg (27.0-35.0); MCHC 32.4 g/dL (32.0-36.0); MCV 97.5 fL (80-100); MPV 11.2 fL (7.6-11.3); Platelets 102 thou/uL (152-406); RBC Red Blood Cell Count 2.36 M/uL (3.86-4.86); Red Cell Distribution Width 20.4 % (12.1-15.2)
[2023-12-24 07:03] LABS: Albumin 2.3 g/dL (3.4-5.0); Albumin/Globulin Ratio 0.7 (1.1-1.8); Anion Gap 8.3 mEq/L (5.0-15.0); Bilirubin Total 0.6 mg/dL (0.2-1.0); Globulin 3.1 g/dL (2.3-3.5); Magnesium 2.1 mg/dL (1.6-2.4); Potassium 4.3 mEq/L (3.5-5.1); Protein, Total 5.4 g/dL (6.4-8.2)
[2023-12-24 08:26] LABS: White Blood Cell Scan OK (OK)
[2023-12-24 08:27] LABS: Anisocytosis 1+; Blood Morphology Comment NOTED (NOT SEEN); Burr Cells 1+; Platelet Estimate DECR
--- NOTE | 2023-12-24 10:26 | P.PN ---
Date of Service: 12/24/23 Subjective: more awake/interactive today. Responding to questions more appropriately and in joy sentences nursing staff reports she ate a few bites of her breakfast; ~15-20% seems to have more energy mentation improving afebrile ROS: 10 point ROS unable to fully obtain due to mentation Physical Exam: GEN: AOx1, more awake/interactive. CV: Regular rate and rhythm, trace lower extremity edema Pulm: Nonlabored respirations on room air, diminished bilaterally at bases ABD: soft, nontender, nondistended Neuro: moves all extremities spontaneously, AOx1, generalized weakness chavez draining light yellow urine (placed in ED) Problem List: Severe Hypernatremia secondary to hypovolemia; resolved Toxic Encephalopathy Hypokalemia, Hypomagnesemia, Hypophosphatemia ALCIDES, prerenal Staph Hominis bacteremia, unknown source Hematuria, resolved Fungal UTI Hypothyroidism Myxedema coma Bilateral cephalic vein thrombus (12/10/23) hx DVT/PE; unprovoked; s/p IVC filter thrombocytopenia, chronic NIDDM2 Dementia hx CVA Severe Hypernatremia secondary to hypovolemia Toxic Encephalopathy Hypokalemia, Hypomagnesemia, Hypophosphatemia ALCIDES, prerenal Encephalopathy related to hypernatremia and myxedema. Hypernatremia resolved, mental status has improved. CT head x3 were all negative for any acute findings. (12/05, 12/12, 12/15) unable to do MRI due to presence of pacemaker CT abdomen (12/12): Possible gastritis. Nephrology is following wasn't eating much, slowly improving Central line placed 12/09 after PICC was unable to be placed d/t resistance. s/p TPN (~12/09-12/20) dc'd for calorie count pt slowly improving discussions regarding possible peg tube - daughter not wanting PEG at this time. Staph Hominis bacteremia, unknown source Hematuria, resolved Fungal UTI Blood cx: (12/05): Staph Hominis in 3/4 bottles repeat blood cx (12/09): NGTD previously on rocephin / vanc (12/06-12/09)and IV cefepime (12/09-12/10) completed 2 weeks of IV vancomycin (12/06-12/21) urine cx (12/04): mixed meche repeat Urine cx (12/15): grew yeast continue IV diflucan (12/15-) x 7 days ID - Dr. Ko is following. Patient is being evaluated for SNF - awaiting nutrition status / if needs PEG Hypothyroidism Myxedema coma TSH significantly elevated 61.5 (12/05) daughter initialy reported no home meds taken for several months s/p IV hydrocortisone. Dc'd 12/18. s/p IV Synthroid; transitioned to oral Synthroid 12/19 Bilateral cephalic vein thrombus (12/10/23) hx DVT/PE; unprovoked ; s/p IVC filter extremity u/s (12/09): +thrombus of right and left cephalic veins (superficial vein thrombosis) h/o dvt/PE s/p prior IVC filter. Lovenox held due to decreasing hemoglobin. and low platelets SCD for DVT prophylaxis. Thrombocytopenia, chronic No evidence of GI bleed. Daily labs. NIDDM2 accu-cheks, SSI with hyperglycemia secondary to TPN continue Semglee. VTE: SCD for now Code: DNR Dispo: anticipate SNF - pending oral intake / nutrition, may need PEG
--- NOTE | 2023-12-24 22:00 | PN ---
Subjective: Patient is lying in bed. Denies any headache, nausea, vomiting, chest pain, abdominal p ain, constipation, or diarrhea. As per staff, patient is not eating much. Objective: Vital signs: Reviewed. Temperature 98, pulse 94, respirations 16, blood pressure 119/72 . Lungs: Basal crackles. Heart: S1, S2. Regular. Abdomen: Soft, nontender. Bowel sounds present. Extremities: Trace edema. Laboratory Data: Shows WBC 3.7, hemoglobin 7.4, platelets 102. BUN of 29, creatinine 1, albumin lev el is 2.3. Assessment And Plan: 1.Staph hominis bacteremia. 2.Myxedema coma, improving. 3.Poor appetite. 4.Pancytopenia. Continue supportive care and monitor for signs of infection with WBC and fever trend. NF/MODL Voice ID: [id number] Report ID: [id number]
[2023-12-25 05:16] LABS: Hematocrit 23.6 % (36.0-45.0); Hemoglobin 7.6 g/dL (12.0-15.0); MCH 31.4 pg (27.0-35.0); MCHC 32.1 g/dL (32.0-36.0); MCV 98.1 fL (80-100); MPV 10.6 fL (7.6-11.3); Platelets 107 thou/uL (152-406); Red Cell Distribution Width 20.2 % (12.1-15.2)
[2023-12-25 05:33] LABS: Albumin 2.4 g/dL (3.4-5.0); Anion Gap 7.1 mEq/L (5.0-15.0); Phosphorus 2.7 mg/dL (2.5-4.9); Potassium 4.1 mEq/L (3.5-5.1)
--- NOTE | 2023-12-25 10:37 | RAD REPORT ---
EXAMINATION: CTA CHEST PE CLINICAL INDICATION: Female, 83 years old. [facility] MA[facility] r/o PE, r/o pnemonia h/o PE/DVT in past, IVC filter IV contrast, no PO Y TECHNIQUE: This examination was performed according to an angiographic protocol with 3D post-processi ng. This involves 3D reconstructions, MIPs, volume rendered images and/or shaded surface rendering. One or more of the following dose reduction techniques were used: Automated exposure control, adjustm ent of the mA and/or kV according to patient size, and/or iterative reconstruction. Unless otherwise specified, incidental findings do not require dedicated imaging follow-up. [id number]. COMPARISON: No prior exam. FINDINGS: LOWER NECK: Visualized thyroid gland and soft tissues are normal. LUNGS AND AIRWAYS: Significantly limited by motion. Mild consolidation in the right lower lobe. PLEURA: Trace right pleural effusion. MEDIASTINUM AND LYMPH NODES: Rectus size hilar and mediastinal lymph nodes. THORACIC AORTA: Normal caliber and configuration. Aberrant right subclavian artery. PULMONARY ARTERIES: Normal caliber. No evidence of pulmonary emboli to the segmental level. Motion ar tifact obscures the subsegmental pulmonary arteries. HEART: Normal heart size. No pericardial effusion. No coronary calcifications. OSSEOUS STRUCTURES AND CHEST WALL: Intact. Upper chest wall pacemaker. UPPER ABDOMEN: Cholecystectomy. IMPRESSION: Negative for pulmonary embolism. Mild right lower lobe consolidation could reflect pneumonia, includi ng secondary to aspiration.
--- NOTE | 2023-12-25 10:42 | RAD REPORT ---
EXAMINATION: CT ABDOMEN AND PELVIS WITH CONTRAST CLINICAL INDICATION: Female, 83 years old.r/o ileus/sbo, eval renal TECHNIQUE: CT abdomen and pelvis was performed, after the administration of IV contrast, [facility]. Axial, sagittal and coronal reconstructions were obtained. One or more of the following dose reduction techniques were used: Automated exposure control, adjustment of the mA and/o r kV according to patient size, and/or iterative reconstruction. Unless otherwise specified, incidental findings do not require dedicated imaging follow-up. [id number]. COMPARISON: No prior exam. FINDINGS: LOWER CHEST: Right lower lobe airspace disease with small right pleural effusion. Referencing same da y chest CT. LIVER: Low-density lesion in the hepatic dome has benign imaging features. GALLBLADDER/BILE DUCT: Cholecystectomy. Prominence of the extrahepatic common bile duct likely relate d to the postcholecystectomy state.? PANCREAS: No mass, ductal dilation, or rohan-pancreatic fluid. SPLEEN: Normal size. No focal lesion. ADRENALS: Adrenal thickening without mass. KIDNEYS AND URETERS: Multiple bilateral renal cysts. No hydronephrosis. Some of the lesions are too s mall to characterize but statistically benign. URINARY BLADDER: Decompressed by Blevins catheter. GASTROINTESTINAL TRACT: Moderate stool in the ascending colon. No bowel obstruction identified. PERITONEUM: No ascites. Nonspecific presacral edema may be due to underlying fluid status.. Mild body wall edema. LYMPH NODES: No lymphadenopathy. ABDOMINAL AORTA AND OTHER VESSELS: Atherosclerosis. IVC filter. REPRODUCTIVE ORGANS: Uterus surgically absent. No adnexal abnormality. MUSCULOSKELETAL: No acute or suspicious osseous abnormality. Multilevel degenerative changes are pres ent in the spine. ADDITIONAL FINDINGS: None. IMPRESSION: No acute or significant abnormalities seen in the abdomen or pelvis. Specifically, no evidence of an ileus or small bowel traction. No hydronephrosis. Moderate stool in the ascending colon. Incidental findings as noted above.
--- NOTE | 2023-12-25 11:13 | P.PN ---
Date of Service: 12/25/23 Subjective: no BM for at least 1-2 weeks. remains confused but more alert/awake. Responding to questions in joy sentences minimal appetite afebrile ROS: 10 point ROS unable to fully obtain due to mentation Physical Exam: GEN: AOx1, more awake/interactive. CV: Regular rate and rhythm, trace lower extremity edema Pulm: Nonlabored respirations on room air, diminished bilaterally at bases ABD: soft, nontender, nondistended Neuro: moves all extremities spontaneously, AOx1, generalized weakness chavez draining light yellow urine (placed in ED) Problem List: Severe Hypernatremia secondary to hypovolemia; resolved Toxic Encephalopathy Hypokalemia, Hypomagnesemia, Hypophosphatemia ALCIDES, prerenal Staph Hominis bacteremia, unknown source Hematuria, resolved Fungal UTI Hypothyroidism Myxedema coma Bilateral cephalic vein thrombus (12/10/23) hx DVT/PE; unprovoked; s/p IVC filter thrombocytopenia, chronic NIDDM2 Dementia hx CVA Severe Hypernatremia secondary to hypovolemia Toxic Encephalopathy Hypokalemia, Hypomagnesemia, Hypophosphatemia ALCIDES, prerenal Encephalopathy related to hypernatremia and myxedema. Hypernatremia resolved, mental status has improved. CT head x3 were all negative for any acute findings. (12/05, 12/12, 12/15) unable to do MRI due to presence of pacemaker CT abdomen (12/12): Possible gastritis. Nephrology is following wasn't eating much, slowly improving Central line placed 12/09 after PICC was unable to be placed d/t resistance. s/p TPN (~12/09-12/20) dc'd for calorie count pt slowly improving discussions regarding possible peg tube check CT abd/pelvis since reportedly no BM in [address] abdomen (12/24): Moderate stool in ascending colon; otherwise no acute findings. No evidence of ileus/small bowel traction. No hydro. CT chest (12/24): no PE. Mild right lower lobe consolidation could reflect pneumonia. significantly limited by motion. Staph Hominis bacteremia, unknown source Hematuria, resolved Fungal UTI Blood cx: (12/05): Staph Hominis in 3/4 bottles repeat blood cx (12/09): NGTD previously on rocephin / vanc (12/06-12/09) and IV cefepime (12/09-12/10) completed 2 weeks of IV vancomycin (12/06-12/21) urine cx (12/04): mixed meche repeat Urine cx (12/15): grew yeast continue IV diflucan (12/15-) x 7 days ID - Dr. Ko is following. Patient is being evaluated for SNF - awaiting nutrition status / if needs PEG Hypothyroidism Myxedema coma TSH significantly elevated 61.5 (12/05) daughter initialy reported no home meds taken for several months s/p IV hydrocortisone. Dc'd 12/18. s/p IV Synthroid; transitioned to oral Synthroid 12/19 Bilateral cephalic vein thrombus (12/10/23) hx DVT/PE; unprovoked ; s/p IVC filter extremity u/s (12/09): +thrombus of right and left cephalic veins (superficial vein thrombosis) h/o dvt/PE s/p prior IVC filter. Lovenox held due to decreasing hemoglobin. and low platelets SCD for DVT prophylaxis. Thrombocytopenia, chronic No evidence of GI bleed. Daily labs. NIDDM2 accu-cheks, SSI with hyperglycemia secondary to TPN continue Semglee. VTE: SCD for now Code: DNR Dispo: anticipate SNF - pending oral intake / nutrition, PEG
[2023-12-25] MEDS: DOCUSATE NA 100 MG CAP PO SCH (20:24)
--- NOTE | 2023-12-25 21:31 | P.PN ---
Date of Service: 12/25/23 Vital Signs Temp Pulse Resp BP Pulse Ox 97.3 F 96 H 12 145/64 H 93 12/25/23 16:00 12/25/23 16:00 12/25/23 16:00 12/25/23 16:00 12/25/23 16:00 Medications Acetaminophen (Acetaminophen 500 Mg Tab) 500 mg PO Q6H PRN PRN Reason: TEMP > 100' F Docusate Sodium (Docusate Na 100 Mg Cap) 100 mg PO BID [facility] Last Admin: 12/25/23 20:24 Dose: 100 mg Glucagon (Glucagon 1 Mg/Vial) 1 mg IM 1X PRN PRN Reason: HYPOGLYCEMIA Hydralazine HCl (Hydralazine Hcl 20 Mg/Ml Vial) 10 mg IV Q6HP PRN PRN Reason: FOR SBP>160 OR DBP>100 MMHG Dextrose (D10w 500 Ml Ivpb) 500 mls @ 0 mls/hr IV .Q0M JENNA Dextrose (Dextrose 10% Water Iv Soln.) 125 mls @ 0 mls/hr IV PRN PRN; Protocol PRN Reason: HYPOGLYCEMIA Insulin Human Regular (Insulin Regular (Human) 100 Unit/Ml) 0 unit SQ Q6HR [facility]; Protocol Last Admin: 12/25/23 17:38 Dose: Not Given Levothyroxine Sodium (Levothyroxine Sod 0.088 Mg Tab) 0.088 mg PO DAILYAC [facility] Last Admin: 12/25/23 05:06 Dose: 0.088 mg Nutritional Formula (Ensure High Protein 237 Ml Can) 237 ml PO BID [facility] Last Admin: 12/25/23 20:23 Dose: 237 ml Ondansetron HCl (Ondansetron 4 Mg/2 Ml Vial) 4 mg IV Q8H PRN PRN Reason: NAUSEA / VOMITING Pantoprazole Sodium (Pantoprazole 40 Mg Inj) 40 mg IVP Q12HR [facility]; Protocol Last Admin: 12/25/23 20:24 Dose: 40 mg Sodium Chloride (Sodium Chloride 0.9% 10ml Inj) 10 ml IV UD PRN PRN Reason: Diluant Sterile Water (Water For Inj,Sterile 10 Ml) 1.2 ml IM UD PRN PRN Reason: DILUTION OF MED Microbiology Results 12/06/23 16:20 Blood - Blood Aerobic Blood Culture - Final Staph Hominis 12/06/23 16:20 Blood - Blood Blood Culture Gram Stain - Final 12/06/23 16:20 Blood - Blood Anaerobic Blood Culture - Final No growth in 5 days. 12/06/23 18:16 Blood - Blood Aerobic Blood Culture - Final Staph Hominis 12/06/23 18:16 Blood - Blood Blood Culture Gram Stain - Final 12/06/23 18:16 Blood - Blood Anaerobic Blood Culture - Final Staphylococcus Hominis 12/06/23 18:16 Blood - Blood Gram Stain - Final Assessment/ Plan: Nephrology No dyspnea No chest pain No acute events overnight Vitals, medications, blood work and imaging reviewed in the chart General: NAD HEENT: Atraumatic Neck: Supple Respiratory: Clear to auscultation bilaterally, Normal air movement Cardiovascular: LE Edema 1+, Regular rate/rhythm Gastrointestinal: Non-distended, No guarding Musculoskeletal: No clubbing, No warmth Integumentary: No rashes, No cyanosis Neurological: Awake Blevins light Laboratory Data (last 24 hrs) 12/06/23 12/06/23 12/06/23 16:20 16:20 16:20 WBC 3.60 L Hgb 11.9 L Hct 37.3 Plt Count 59 L PT 13.3 H INR 1.19 APTT 26.7 Sodium 152 H* Potassium 2.8 L BUN 53 H Creatinine 1.35 H Glucose 115 H Total Bilirubin 1.3 H AST 16 ALT 26 Alkaline Phosphatase 50 Imagings Data: EXAM DESCRIPTION: Nathant Single View12/06/2023 4:34 pm CLINICAL HISTORY: Confusion COMPARISON: September 2023 FINDINGS: The lungs appear clear of acute infiltrate. The heart is mildly enlarged. Pacemaker leads are in place. IMPRESSION: No acute abnormalities displayed EXAM DESCRIPTION: CT - Head Brain Wo Cont - 12/06/2023 4:40 pm CLINICAL HISTORY: Alteration of awareness/confusion COMPARISON: August 2023 TECHNIQUE: Computed axial tomography of the head was obtained. IV contrast was not requested. All CT scans are performed using dose optimization technique as appropriate and may include automated exposure control or mA/KV adjustment according to patient size. FINDINGS: An intracranial bleed is not seen The ventricles are normal in caliber No extra-axial fluid collection is noted. Prominent cerebral atrophy Mild low-density areas within periventricular, deep and subcortical white matter likely represent ischemic changes secondary to small vessel disease. Fluid within the sinuses/ mastoids is not seen. IMPRESSION: No acute intracranial abnormality is seen If patient's symptoms persist MRI of the brain would be recommended Conclusions/Impression: Hypernatremia with encephalopathy Hyponatremia -Maintain adequate nutrition and hydration Hypokalemia Hypomagnesemia Hypophosphatemia -Monitor levels & replete prn Peripheral Edema with elevated BNP -Daily weight -Lasix prn DM II with CKD/ Proteinuria Hyperglycemia -RISS Hypoalbuminemia -Advance diet as tolerated; continue Ensure -Consider PEG Anemia in chronic illness -Monitor H&H -PRBC prn Hypothyroidism, uncontrolled -Continue Levothyroxine Acute Yeast Cystitis -Continue Diflucan Hospitalist note reviewed Case reviewed with Dr. Worthy
[2023-12-26 08:13] LABS: Hematocrit 22.1 % (36.0-45.0); Hemoglobin 7.2 g/dL (12.0-15.0); MCH 31.5 pg (27.0-35.0); MCHC 32.6 g/dL (32.0-36.0); MCV 96.7 fL (80-100); MPV 10.5 fL (7.6-11.3); Platelets 106 thou/uL (152-406); RBC Red Blood Cell Count 2.29 M/uL (3.86-4.86); Red Cell Distribution Width 19.8 % (12.1-15.2)
[2023-12-26 08:22] LABS: Albumin 2.3 g/dL (3.4-5.0); Albumin/Globulin Ratio 0.8 (1.1-1.8); Anion Gap 8.9 mEq/L (5.0-15.0); Bilirubin Total 0.5 mg/dL (0.2-1.0); Magnesium 1.8 mg/dL (1.6-2.4); Potassium 3.9 mEq/L (3.5-5.1); Protein, Total 5.3 g/dL (6.4-8.2)
--- NOTE | 2023-12-26 10:56 | P.PN ---
Date of Service: 12/26/23 Subjective: appetite slowly improving. Able to each some peaches yesterday and drank some ensures ate some toast and eggs this morning ; eating more - especially peaches / fruits mentation improved no new problems +flatus afebrile *Dr. Beaulieu and nursing staff spoke with daughterVictoria this morning around ~11:20 regarding PEG tube over the phone after confirming identity. Victoria reportedly agreed / consented to PEG placement. However, a few hours later, she showed up to bedside stating she never had any conversation with Dr. Beaulieu and did not agree to PEG. She expressly refused PEG placement for her mother. When asked if she remembers the conversation she states no. She proceeded to pull out her phone and show that she did have the voicemail left by Sarai, which I overheard just before 11am, and Victoria showed a phone call around 11:15, which coincides with the conversation with Dr. Beaulieu. Despite seeing this, she denies having this conversation still. ROS: 10 point ROS unable to fully obtain due to mentation Physical Exam: GEN: AOx1, appropriate responses,, pleasant CV: Regular rate and rhythm, trace lower extremity edema Pulm: Nonlabored respirations on room air, diminished bilaterally at bases ABD: soft, nontender, nondistended Neuro: moves all extremities spontaneously, AOx1, generalized weakness chavez draining light yellow urine (placed in ED) Problem List: Severe Hypernatremia secondary to hypovolemia; resolved Toxic Encephalopathy Hypokalemia, Hypomagnesemia, Hypophosphatemia ALCIDES, prerenal Staph Hominis bacteremia, unknown source Hematuria, resolved Fungal UTI Hypothyroidism Myxedema coma Bilateral cephalic vein thrombus (12/10/23) hx DVT/PE; unprovoked; s/p IVC filter thrombocytopenia, chronic NIDDM2 Dementia hx CVA Severe Hypernatremia secondary to hypovolemia; resolved Toxic Encephalopathy Hypokalemia, Hypomagnesemia, Hypophosphatemia ALCIDES, prerenal Encephalopathy related to hypernatremia and myxedema. Hypernatremia resolved, mental status has improved. CT head x3 were all negative for any acute findings. (12/05, 12/12, 12/15) unable to do MRI due to presence of pacemaker CT abdomen (12/24): Moderate stool in ascending colon; otherwise no acute findings. No evidence of ileus/small bowel traction. No hydro. CT chest (12/24): no PE. Mild right lower lobe consolidation could reflect pneumonia. significantly limited by motion. Nephrology is following wasn't eating much, slowly improving Central line placed 12/09 after PICC was unable to be placed d/t resistance. will need to work to remove this in next day or two s/p TPN (~12/09-12/20) patient/family agreeable to PEG 12/25 after discussion tentative plan for PEG tube placement tomorrow with Dr. Beaulieu Staph Hominis bacteremia, unknown source Hematuria, resolved Fungal UTI Blood cx: (12/05): Staph Hominis in 3/4 bottles repeat blood cx (12/09): NGTD urine cx (12/15): grew yeast previously on rocephin / vanc (12/06-12/09) and IV cefepime (12/09-12/10) completed 2 weeks of IV vancomycin (12/06-12/21) s/p 1 week of IV diflucan (12/15-12/22) for fungal UTI ID - Dr. Ko is following. Patient is being evaluated for SNF - awaiting nutrition decision Hypothyroidism Myxedema coma TSH significantly elevated 61.5 (12/05) daughter initialy reported no home meds taken for several months s/p IV hydrocortisone. Dc'd 12/18. s/p IV Synthroid; transitioned to oral Synthroid 12/19 Bilateral cephalic vein thrombus (12/10/23) hx DVT/PE; unprovoked ; s/p IVC filter extremity u/s (12/09): +thrombus of right and left cephalic veins (superficial vein thrombosis) h/o dvt/PE s/p prior IVC filter. Lovenox held due to decreasing hemoglobin. and low platelets SCD for DVT prophylaxis. Thrombocytopenia, chronic No evidence of GI bleed. Daily labs. NIDDM2 accu-cheks, SSI with hyperglycemia secondary to TPN continue Semglee. VTE: SCD for now Code: DNR Dispo: anticipate SNF - pending resolution of nutrition if PEG denied, will work towards SNF
[2023-12-26] MEDS: ACETAMINOPHEN 500 MG TAB PO PRN (17:04)
[2023-12-27 06:19] LABS: Hematocrit 23.4 % (36.0-45.0); Hemoglobin 7.9 g/dL (12.0-15.0); MCH 32.5 pg (27.0-35.0); MCHC 33.7 g/dL (32.0-36.0); MCV 96.4 fL (80-100); Platelets 109 thou/uL (152-406); RBC Red Blood Cell Count 2.43 M/uL (3.86-4.86); Red Cell Distribution Width 19.4 % (12.1-15.2)
[2023-12-27 06:21] LABS: Albumin 2.4 g/dL (3.4-5.0); Anion Gap 6.8 mEq/L (5.0-15.0); Magnesium 1.9 mg/dL (1.6-2.4); Phosphorus 2.7 mg/dL (2.5-4.9); Potassium 3.8 mEq/L (3.5-5.1)
--- NOTE | 2023-12-27 12:05 | P.PN ---
Date of Service: 12/27/23 Subjective: stable, eating somewhat, seems to be flavor/texture issue no new issues sat up to side of bed for ~3 min ROS: 10 point ROS unable to fully obtain due to mentation Physical Exam: GEN: AOx1-2, appropriate responses,, pleasant CV: Regular rate and rhythm, trace lower extremity edema Pulm: Nonlabored respirations on room air, diminished bilaterally at bases ABD: soft, nontender, nondistended Neuro: moves all extremities spontaneously, generalized weakness chavez draining light yellow urine (placed in ED) midline in place central line in place (12/09) Problem List: Severe Hypernatremia secondary to hypovolemia; resolved Toxic Encephalopathy Hypokalemia, Hypomagnesemia, Hypophosphatemia ALCIDES, prerenal Staph Hominis bacteremia, unknown source Hematuria, resolved Fungal UTI Hypothyroidism Myxedema coma Bilateral cephalic vein thrombus (12/10/23) hx DVT/PE; unprovoked; s/p IVC filter thrombocytopenia, chronic NIDDM2 Dementia hx CVA Severe Hypernatremia secondary to hypovolemia; resolved Toxic Encephalopathy Hypokalemia, Hypomagnesemia, Hypophosphatemia ALCIDES, prerenal Encephalopathy related to hypernatremia and myxedema. Hypernatremia resolved, mental status has improved. CT head x3 were all negative for any acute findings. (12/05, 12/12, 12/15) unable to do MRI due to presence of pacemaker CT abdomen (12/24): Moderate stool in ascending colon; otherwise no acute findings. No evidence of ileus/small bowel traction. No hydro. CT chest (12/24): no PE. Mild right lower lobe consolidation could reflect pneumonia. significantly limited by motion. Nephrology is following wasn't eating much, slowly improvingr4 Central line placed 12/09 after PICC was unable to be placed d/t resistance. will need to work to remove this in next day or two s/p TPN (~12/09-12/20) Dr. Beaulieu, general surgeon consulted family agreeable to PEG tube 12/26 after discussion. tentative plan for Wednesday per Dr. Beaulieu Staph Hominis bacteremia, unknown source Hematuria, resolved Fungal UTI Blood cx: (12/05): Staph Hominis in 3/4 bottles repeat blood cx (12/09): NGTD urine cx (12/15): grew yeast previously on rocephin / vanc (12/06-12/09) and IV cefepime (12/09-12/10) completed 2 weeks of IV vancomycin (12/06-12/21) s/p 1 week of IV diflucan (12/15-12/22) for fungal UTI ID - Dr. Ko is following. Patient is being evaluated for SNF Hypothyroidism Myxedema coma TSH significantly elevated 61.5 (12/05) daughter initialy reported no home meds taken for several months s/p IV hydrocortisone. Dc'd 12/18. s/p IV Synthroid; transitioned to oral Synthroid 12/19 Bilateral cephalic vein thrombus (12/10/23) hx DVT/PE; unprovoked ; s/p IVC filter extremity u/s (12/09): +thrombus of right and left cephalic veins (superficial vein thrombosis) h/o dvt/PE s/p prior IVC filter. Lovenox held due to decreasing hemoglobin. and low platelets SCD for DVT prophylaxis. Thrombocytopenia, chronic No evidence of GI bleed. Daily labs. NIDDM2 accu-cheks, SSI with hyperglycemia secondary to TPN continue Semglee. VTE: SCD for now Code: DNR Dispo: anticipate SNF - pending approval after PEG placement on Wednesday possibly may need blood transfusion discussed with daughter - agreeable to PEG now
[2023-12-27] MEDS: NA CHLORIDE 0.9% 250 ML ONE (13:24)
[2023-12-27] MEDS: KCL 20 MEQ/100 mL IVPB 20 MEQ/100 ML BAG IV SCH (13:29)
--- NOTE | 2023-12-27 21:32 | P.PN ---
Date of Service: 12/27/23 Vital Signs Temp Pulse Resp BP Pulse Ox 96.8 F 94 H 17 117/65 93 12/27/23 20:00 12/27/23 20:00 12/27/23 20:00 12/27/23 20:00 12/27/23 20:00 Medications Acetaminophen (Acetaminophen 500 Mg Tab) 500 mg PO Q6H PRN PRN Reason: TEMP > 100' F Last Admin: 12/27/23 19:47 Dose: 500 mg Docusate Sodium (Docusate Na 100 Mg Cap) 100 mg PO BID [facility] Last Admin: 12/27/23 19:47 Dose: 100 mg Glucagon (Glucagon 1 Mg/Vial) 1 mg IM 1X PRN PRN Reason: HYPOGLYCEMIA Hydralazine HCl (Hydralazine Hcl 20 Mg/Ml Vial) 10 mg IV Q6HP PRN PRN Reason: FOR SBP>160 OR DBP>100 MMHG Dextrose (D10w 500 Ml Ivpb) 500 mls @ 0 mls/hr IV .Q0M JENNA Dextrose (Dextrose 10% Water Iv Soln.) 125 mls @ 0 mls/hr IV PRN PRN; Protocol PRN Reason: HYPOGLYCEMIA Insulin Human Regular (Insulin Regular (Human) 100 Unit/Ml) 0 unit SQ Q6HR [facility]; Protocol Last Admin: 12/27/23 18:00 Dose: Not Given Levothyroxine Sodium (Levothyroxine Sod 0.088 Mg Tab) 0.088 mg PO DAILYAC [facility] Last Admin: 12/27/23 05:40 Dose: 0.088 mg Nutritional Formula (Ensure High Protein 237 Ml Can) 237 ml PO BID [facility] Last Admin: 12/27/23 19:47 Dose: 237 ml Ondansetron HCl (Ondansetron 4 Mg/2 Ml Vial) 4 mg IV Q8H PRN PRN Reason: NAUSEA / VOMITING Pantoprazole Sodium (Pantoprazole 40 Mg Inj) 40 mg IVP Q12HR [facility]; Protocol Last Admin: 12/27/23 19:47 Dose: 40 mg Sodium Chloride (Sodium Chloride 0.9% 10ml Inj) 10 ml IV UD PRN PRN Reason: Diluant Sterile Water (Water For Inj,Sterile 10 Ml) 1.2 ml IM UD PRN PRN Reason: DILUTION OF MED Microbiology Results 12/06/23 16:20 Blood - Blood Aerobic Blood Culture - Final Staph Hominis 12/06/23 16:20 Blood - Blood Blood Culture Gram Stain - Final 12/06/23 16:20 Blood - Blood Anaerobic Blood Culture - Final No growth in 5 days. 12/06/23 18:16 Blood - Blood Aerobic Blood Culture - Final Staph Hominis 12/06/23 18:16 Blood - Blood Blood Culture Gram Stain - Final 12/06/23 18:16 Blood - Blood Anaerobic Blood Culture - Final Staphylococcus Hominis 12/06/23 18:16 Blood - Blood Gram Stain - Final Assessment/ Plan: Nephrology No dyspnea No chest pain No acute events overnight Limited IH/ ROS due to mental status Vitals, medications, blood work and imaging reviewed in the chart General: NAD HEENT: Atraumatic Neck: Supple Respiratory: Clear to auscultation bilaterally, Normal air movement Cardiovascular: LE Edema 1+, Regular rate/rhythm Gastrointestinal: Non-distended, No guarding Musculoskeletal: No clubbing, No warmth Integumentary: No rashes, No cyanosis Neurological: Awake Blevins light Laboratory Data (last 24 hrs) 12/06/23 12/06/23 12/06/23 16:20 16:20 16:20 WBC 3.60 L Hgb 11.9 L Hct 37.3 Plt Count 59 L PT 13.3 H INR 1.19 APTT 26.7 Sodium 152 H* Potassium 2.8 L BUN 53 H Creatinine 1.35 H Glucose 115 H Total Bilirubin 1.3 H AST 16 ALT 26 Alkaline Phosphatase 50 Imagings Data: EXAM DESCRIPTION: Coreen Single View12/06/2023 4:34 pm CLINICAL HISTORY: Confusion COMPARISON: September 2023 FINDINGS: The lungs appear clear of acute infiltrate. The heart is mildly enlarged. Pacemaker leads are in place. IMPRESSION: No acute abnormalities displayed EXAM DESCRIPTION: CT - Head Brain Wo Cont - 12/06/2023 4:40 pm CLINICAL HISTORY: Alteration of awareness/confusion COMPARISON: August 2023 TECHNIQUE: Computed axial tomography of the head was obtained. IV contrast was not requested. All CT scans are performed using dose optimization technique as appropriate and may include automated exposure control or mA/KV adjustment according to patient size. FINDINGS: An intracranial bleed is not seen The ventricles are normal in caliber No extra-axial fluid collection is noted. Prominent cerebral atrophy Mild low-density areas within periventricular, deep and subcortical white matter likely represent ischemic changes secondary to small vessel disease. Fluid within the sinuses/ mastoids is not seen. IMPRESSION: No acute intracranial abnormality is seen If patient's symptoms persist MRI of the brain would be recommended Conclusions/Impression: Hypernatremia with encephalopathy Hyponatremia -Maintain adequate nutrition and hydration Hypokalemia Hypomagnesemia Hypophosphatemia -Monitor levels & replete prn Peripheral Edema with elevated BNP -Daily weight -Lasix prn DM II with CKD/ Proteinuria Hyperglycemia -RISS Hypoalbuminemia -Advance diet as tolerated; continue Ensure -Consider PEG Anemia in chronic illness -Monitor H&H -PRBC prn Hypothyroidism, uncontrolled -Continue Levothyroxine Hospitalist note reviewed Case reviewed with Dr. Worthy
[2023-12-28 05:43] LABS: Hematocrit 23.9 % (36.0-45.0); Hemoglobin 7.8 g/dL (12.0-15.0); MCH 31.6 pg (27.0-35.0); MCHC 32.6 g/dL (32.0-36.0); MCV 96.7 fL (80-100); Platelets 124 thou/uL (152-406); RBC Red Blood Cell Count 2.47 M/uL (3.86-4.86); Red Cell Distribution Width 19.6 % (12.1-15.2)
[2023-12-28 06:05] LABS: Albumin 2.4 g/dL (3.4-5.0); Albumin/Globulin Ratio 0.8 (1.1-1.8); Anion Gap 7.9 mEq/L (5.0-15.0); Bilirubin Total 0.5 mg/dL (0.2-1.0); Globulin 3.2 g/dL (2.3-3.5); Magnesium 1.7 mg/dL (1.6-2.4); Phosphorus 2.6 mg/dL (2.5-4.9); Potassium 3.9 mEq/L (3.5-5.1); Protein, Total 5.6 g/dL (6.4-8.2); Uric Acid 4.8 mg/dL (2.6-6.0)
[2023-12-28] MEDS: POTASSIUM CL SA 10 MEQ TAB PO ONE (09:17)
[2023-12-28] MEDS: MAGNESIUM SULFATE 1 gm IVPB 1 GM/100 ML BAG IV ONE (09:17)
--- NOTE | 2023-12-28 17:10 | P.PN ---
Subjective Date of Service: 12/28/23 Chief Complaint: Worsening confusion/failure to thrive Patient has been awake and interactive. She has been tolerating oral diet but oral intake remain poor. No issues overnight. Physical Examination - Vital Signs Temperature: 97.2 F Blood Pressure: 152/73 Pulse: 98 Respirations: 16 Pulse Ox (%): 94 Assessment And Plan - Plan Physical Exam: GEN: Awake, NAD CV: Regular rate and rhythm, no edema Pulm: Nonlabored breathing, clear bilaterally, ABD: soft, nontender, nondistended Neuro: no focal motor deficit, Problem List: Severe Hypernatremia secondary to hypovolemia; resolved Toxic Encephalopathy Hypokalemia, Hypomagnesemia, Hypophosphatemia ALCIDES, prerenal Staph Hominis bacteremia, unknown source Hematuria, resolved Fungal UTI Hypothyroidism Myxedema coma Bilateral cephalic vein thrombus (12/10/23) hx DVT/PE; unprovoked; s/p IVC filter thrombocytopenia, chronic NIDDM2 Dementia hx CVA Severe Hypernatremia secondary to hypovolemia; resolved Toxic Encephalopathy Hypokalemia, Hypomagnesemia, Hypophosphatemia ALCIDES, prerenal Encephalopathy related to hypernatremia and myxedema. Hypernatremia resolved, mental status has improved. CT head x3 were all negative for any acute findings. (12/05, 12/12, 12/15) unable to do MRI due to presence of pacemaker CT abdomen (12/24): Moderate stool in ascending colon; otherwise no acute findings. No evidence of ileus/small bowel traction. No hydro. CT chest (12/24): no PE. Mild right lower lobe consolidation could reflect pneumonia. significantly limited by motion. Nephrology is following Slowly improving clinically. Central line placed 12/09 after PICC was unable to be placed d/t resistance. s/p TPN (~12/09-12/20) Patient is failing to thrive. family agreeable to PEG tube 12/[address] Beaulieu, general surgeon evaluating for PEG tube. tentative plan for PEG tube insertion on Wednesday per Dr. Beaulieu Staph Hominis bacteremia, unknown source Hematuria, resolved Fungal UTI Blood cx: (12/05): Staph Hominis in 3/4 bottles repeat blood cx (12/09): NGTD urine cx (12/15): grew yeast previously on rocephin / vanc (12/06-12/09) and IV cefepime (12/09-12/10) Patient completed 2 weeks of IV vancomycin (12/06-12/21) s/p 1 week of IV diflucan (12/15-12/22) for fungal UTI ID - Dr. Ko is following. Patient is being evaluated for SNF Hypothyroidism Myxedema coma TSH significantly elevated 61.5 (12/05) daughter initialy reported no home meds taken for several months s/p IV hydrocortisone. Dc'd 12/18. s/p IV Synthroid; transitioned to oral Synthroid 12/19 Bilateral cephalic vein thrombus (12/10/23) hx DVT/PE; unprovoked ; s/p IVC filter extremity u/s (12/09): +thrombus of right and left cephalic veins (superficial vein thrombosis) h/o dvt/PE s/p prior IVC filter. Lovenox held due to decreasing hemoglobin. and low platelets SCD for DVT prophylaxis. Thrombocytopenia, chronic No evidence of GI bleed. Daily labs. Anemia No active GI bleed. Monitor H&H and transfuse as needed for hemoglobin less than 7. NIDDM2 accu-cheks, SSI Semglee discontinued. VTE: SCD for now Code: DNR Dispo: anticipate SNF - pending approval after PEG placement. VTE: SCD Code: DNR
--- NOTE | 2023-12-28 19:41 | P.PN ---
Date of Service: 12/28/23 Vital Signs Temp Pulse Resp BP Pulse Ox 97.2 F 98 H 16 152/73 H 94 12/28/23 17:22 12/28/23 17:22 12/28/23 17:22 12/28/23 17:22 12/28/23 17:22 Medications Acetaminophen (Acetaminophen 500 Mg Tab) 500 mg PO Q6H PRN PRN Reason: TEMP > 100' F Last Admin: 12/27/23 19:47 Dose: 500 mg Docusate Sodium (Docusate Na 100 Mg Cap) 100 mg PO BID [facility] Last Admin: 12/28/23 09:17 Dose: 100 mg Glucagon (Glucagon 1 Mg/Vial) 1 mg IM 1X PRN PRN Reason: HYPOGLYCEMIA Hydralazine HCl (Hydralazine Hcl 20 Mg/Ml Vial) 10 mg IV Q6HP PRN PRN Reason: FOR SBP>160 OR DBP>100 MMHG Dextrose (D10w 500 Ml Ivpb) 500 mls @ 0 mls/hr IV .Q0M [facility] Dextrose (Dextrose 10% Water Iv Soln.) 125 mls @ 0 mls/hr IV PRN PRN; Protocol PRN Reason: HYPOGLYCEMIA Insulin Human Regular (Insulin Regular (Human) 100 Unit/Ml) 0 unit SQ Q6HR [facility]; Protocol Last Admin: 12/28/23 18:00 Dose: Not Given Levothyroxine Sodium (Levothyroxine Sod 0.088 Mg Tab) 0.088 mg PO DAILYAC [facility] Last Admin: 12/28/23 05:33 Dose: 0.088 mg Nutritional Formula (Ensure High Protein 237 Ml Can) 237 ml PO BID [facility] Last Admin: 12/28/23 09:18 Dose: 237 ml Ondansetron HCl (Ondansetron 4 Mg/2 Ml Vial) 4 mg IV Q8H PRN PRN Reason: NAUSEA / VOMITING Pantoprazole Sodium (Pantoprazole 40 Mg Inj) 40 mg IVP Q12HR [facility]; Protocol Last Admin: 12/28/23 09:17 Dose: 40 mg Sodium Chloride (Sodium Chloride 0.9% 10ml Inj) 10 ml IV UD PRN PRN Reason: Diluant Sterile Water (Water For Inj,Sterile 10 Ml) 1.2 ml IM UD PRN PRN Reason: DILUTION OF MED Microbiology Results 12/06/23 16:20 Blood - Blood Aerobic Blood Culture - Final Staph Hominis 12/06/23 16:20 Blood - Blood Blood Culture Gram Stain - Final 12/06/23 16:20 Blood - Blood Anaerobic Blood Culture - Final No growth in 5 days. 12/06/23 18:16 Blood - Blood Aerobic Blood Culture - Final Staph Hominis 12/06/23 18:16 Blood - Blood Blood Culture Gram Stain - Final 12/06/23 18:16 Blood - Blood Anaerobic Blood Culture - Final Staphylococcus Hominis 12/06/23 18:16 Blood - Blood Gram Stain - Final Assessment/ Plan: Nephrology No dyspnea No chest pain No acute events overnight Limited IH/ ROS due to mental status Vitals, medications, blood work and imaging reviewed in the chart General: NAD HEENT: Atraumatic Neck: Supple Respiratory: Clear to auscultation bilaterally, Normal air movement Cardiovascular: LE Edema 1+, Regular rate/rhythm Gastrointestinal: Non-distended, No guarding Musculoskeletal: No clubbing, No warmth Integumentary: No rashes, No cyanosis Neurological: Awake Blevins light Laboratory Data (last 24 hrs) 12/06/23 12/06/23 12/06/23 16:20 16:20 16:20 WBC 3.60 L Hgb 11.9 L Hct 37.3 Plt Count 59 L PT 13.3 H INR 1.19 APTT 26.7 Sodium 152 H* Potassium 2.8 L BUN 53 H Creatinine 1.35 H Glucose 115 H Total Bilirubin 1.3 H AST 16 ALT 26 Alkaline Phosphatase 50 Imagings Data: EXAM DESCRIPTION: Coreen Single View12/06/2023 4:34 pm CLINICAL HISTORY: Confusion COMPARISON: September 2023 FINDINGS: The lungs appear clear of acute infiltrate. The heart is mildly enlarged. Pacemaker leads are in place. IMPRESSION: No acute abnormalities displayed EXAM DESCRIPTION: CT - Head Brain Wo Cont - 12/06/2023 4:40 pm CLINICAL HISTORY: Alteration of awareness/confusion COMPARISON: August 2023 TECHNIQUE: Computed axial tomography of the head was obtained. IV contrast was not requested. All CT scans are performed using dose optimization technique as appropriate and may include automated exposure control or mA/KV adjustment according to patient size. FINDINGS: An intracranial bleed is not seen The ventricles are normal in caliber No extra-axial fluid collection is noted. Prominent cerebral atrophy Mild low-density areas within periventricular, deep and subcortical white matter likely represent ischemic changes secondary to small vessel disease. Fluid within the sinuses/ mastoids is not seen. IMPRESSION: No acute intracranial abnormality is seen If patient's symptoms persist MRI of the brain would be recommended Conclusions/Impression: Hypernatremia with encephalopathy Hyponatremia -Maintain adequate nutrition and hydration Hypokalemia Hypomagnesemia Hypophosphatemia -Monitor levels & replete prn Peripheral Edema with elevated BNP -Daily weight -Lasix prn DM II with CKD/ Proteinuria Hyperglycemia -RISS Hypoalbuminemia -Advance diet as tolerated; continue Ensure -Consider PEG Anemia in chronic illness -Monitor H&H -PRBC prn Hypothyroidism, uncontrolled -Continue Levothyroxine Hospitalist note reviewed
--- NOTE | 2023-12-28 20:18 | PN ---
Subjective: This is an 83-year-old female, lying in bed, opens eyes spontaneously, not in any acute distress. Objective: Vital Signs: Reviewed. Lungs: Basal crackles. Heart: S1, S2. Regular. Abdomen: Soft, nontender. Bowel sounds present. Extremity: Trace edema. Laboratory Data: Shows WBC 2.9, hemoglobin 7.8, platelets 124, BUN 21, creatinine 1.09. Assessment And Plan: Status post treatment of Staph hominis bacteremia. Myxedema coma. Pancytopeni a. Continue supportive care and monitor signs of infection. We will follow the patient as needed. NF/MODL Voice ID: [id number] Report ID: [id number]
[2023-12-29 05:46] LABS: Absolute Basophils 0.1 K/uL (0-0.5); Absolute Eosinophils 0.1 K/uL (0-0.5); Absolute Lymphocytes (CBC) 0.6 K/uL (0.7-4.9); Absolute Monocytes 0.2 K/uL (0.1-1.3); Absolute Neutrophil 2.4 K/uL (1.8-8.0); Basophils % 1.9 % (0-1.3); Eosinophils % 3.3 % (0-4.4); Hematocrit 24.8 % (36.0-45.0); Hemoglobin 8.1 g/dL (12.0-15.0); Lymphocytes % 17.8 % (15.3-44.8); MCH 31.8 pg (27.0-35.0); MCHC 32.5 g/dL (32.0-36.0); MCV 97.8 fL (80-100); MPV 10.1 fL (7.6-11.3); Monocytes % 7.2 % (3.3-12.3); Neutrophils % 69.8 % (41.7-73.7); Platelets 137 thou/uL (152-406); RBC Red Blood Cell Count 2.54 M/uL (3.86-4.86); Red Cell Distribution Width 19.2 % (12.1-15.2)
[2023-12-29 06:01] LABS: Anion Gap 6.9 mEq/L (5.0-15.0); Magnesium 1.9 mg/dL (1.6-2.4); Potassium 3.9 mEq/L (3.5-5.1)
[2023-12-29] MEDS: KCL 20 MEQ/100 mL IVPB 20 MEQ/100 ML BAG IV SCH (08:43)
[2023-12-29] MEDS ORDERED: LIDOCAINE 1% MPF 5 ML VIAL ONE (14:13)
[2023-12-29] MEDS ORDERED: propofoL 200 MG/20 ML VIAL IV ONE (14:13)
[2023-12-29] MEDS: NA CHLORIDE 0.9% 500 ML ONE (14:15)
[2023-12-29] MEDS: CEFAZOLIN SODIUM 1 GM/VIAL ONE (14:32)
--- NOTE | 2023-12-29 17:29 | P.PN ---
Subjective Date of Service: 12/29/23 Chief Complaint: Worsening confusion/failure to thrive Patient underwent PEG tube placement today. No issues overnight. No reported agitation. Physical Examination - Vital Signs Temperature: 97.2 F Blood Pressure: 112/63 Pulse: 100 Respirations: 18 Pulse Ox (%): 95 Assessment And Plan - Plan Physical Exam: GEN: Drowsy, NAD CV: Regular rate and rhythm, no edema Pulm: Nonlabored breathing, clear bilaterally, ABD: soft, nontender, nondistended Neuro: no focal motor deficit, Problem List: Severe Hypernatremia secondary to hypovolemia; resolved Toxic Encephalopathy Hypokalemia, Hypomagnesemia, Hypophosphatemia ALCIDES, prerenal Staph Hominis bacteremia, unknown source Hematuria, resolved Fungal UTI Hypothyroidism Myxedema coma Bilateral cephalic vein thrombus (12/10/23) hx DVT/PE; unprovoked; s/p IVC filter thrombocytopenia, chronic NIDDM2 Dementia hx CVA Severe Hypernatremia secondary to hypovolemia; resolved Toxic Encephalopathy Failure to thrive Encephalopathy related to hypernatremia and myxedema. Hypernatremia resolved, mental status has improved. CT head x3 were all negative for any acute findings. (12/05, 12/12, 12/15) unable to do MRI due to presence of pacemaker CT abdomen (12/24): Moderate stool in ascending colon; otherwise no acute findings. No evidence of ileus/small bowel traction. No hydro. CT chest (12/24): no PE. Mild right lower lobe consolidation could reflect pneumonia. significantly limited by motion. Nephrology is following Central line placed 12/09 after PICC was unable to be placed d/t resistance. s/p TPN (~12/09-12/20) Patient is failing to thrive. family agreeable to PEG tube 12/[address] Beaulieu, general surgeon consulted, PEG tube placed today(12/28) Initiation of PEG tube feeding per Dr. Beaulieu. Staph Hominis bacteremia, unknown source Hematuria, resolved Fungal UTI Blood cx: (12/05): Staph Hominis in 3/4 bottles repeat blood cx (12/09): NGTD urine cx (12/15): grew yeast previously on rocephin / vanc (12/06-12/09) and IV cefepime (12/09-12/10) Patient completed 2 weeks of IV vancomycin (12/06-12/21) s/p 1 week of IV diflucan (12/15-12/22) for fungal UTI ID - Dr. Ko is following. Patient is being evaluated for SNF Hypothyroidism Myxedema coma TSH significantly elevated 61.5 (12/05) daughter initialy reported no home meds taken for several months s/p IV hydrocortisone. Dc'd 12/18. s/p IV Synthroid; transitioned to oral Synthroid 12/19 ALCIDES, prerenal-resolved Hypokalemia-resolved Hypomagnesemia-resolved Hypophosphatemia-resolved. Bilateral cephalic vein thrombus (12/10/23) hx DVT/PE; unprovoked ; s/p IVC filter extremity u/s (12/09): +thrombus of right and left cephalic veins (superficial vein thrombosis) h/o dvt/PE s/p prior IVC filter. Lovenox held due to decreasing hemoglobin. and low platelets SCD for DVT prophylaxis. Thrombocytopenia, chronic No evidence of GI bleed. Daily labs. Anemia No active GI bleed. Monitor H&H and transfuse as needed for hemoglobin less than 7. NIDDM2 accu-cheks, SSI Semglee discontinued. VTE: SCD for now Code: DNR Dispo: [facility] - pending approval VTE: SCD Code: DNR
--- NOTE | 2023-12-29 20:57 | CON ---
Date of Consultation: 12/10/2023 Brief History Of Present Illness: The patient is an 83-year-old woman who presented to the hospital on 12/06/2023 with worsening confusion and failure to thrive. She has a history of dementia, which g ot continuously worse. Daughter reported that she had been getting worse and as such, she was admitt ed the hospital with the above-stated complaints. She had been getting worse from a medical standpoi nt, inability to tolerate p.o., meeting her nutritional goals. In addition, she had no IV access. A s such, I am consulted to see the patient regarding the above issues. Past Medical History: Dementia. Past Surgical History: Denies. Allergies: NO KNOWN DRUG ALLERGIES. INFORMATION IS OBTAINED FROM THE CHART PATIENT IS NONVERBAL. THERE IS NO HISTORY OF SMOKING, ALCOHOL, RECREATIONAL DRUG USE. Review of Systems: 10 point review of systems is unable to obtain. Medications: Unable to obtain. Physical Examination: General: She is oriented x1. Otherwise, she is lethargic. HEENT: Normocephalic. Sclerae icteric. Mucous membranes are moist. Oropharynx is clear. Neck: Supple. No JVD. Chest: Normal expansion and excursion. Cardiovascular: Regular rate and rhythm. Pulmonary: Clear to auscultation bilaterally. Abdomen: Soft. Extremities: No clubbing, cyanosis, or edema. Skin: Warm and dry. Assessment And Plan: This is an 83-year-old woman who comes in with signs of dementia and worsening failure to thrive. I have explained the risks, benefits, and alternatives of placement of a central venous catheter incl uding, but not limited to bleeding, infection, damage to surrounding tissue, need for further operati ve procedures. In addition, if patient needs additional assistance, we will discuss feeding tube amrit cement, which includes percutaneous endoscopic gastrostomy tube. I have explained the risks, benefit s, and alternatives of the above-stated plan including, but not limited to bleeding, infection, damag e to surrounding tissues, injury to intestines, need for further operations. The patient's family di splayed understanding and agreed to proceed as indicated. Her daughter is medical power of staff attorney. KEISHA/BERNADINE Voice ID: [id number] Report ID: [id number]
--- NOTE | 2023-12-29 21:36 | P.PN ---
Date of Service: 12/29/23 Vital Signs Temp Pulse Resp BP Pulse Ox 97.2 F 100 H 18 112/63 95 12/29/23 17:40 12/29/23 17:40 12/29/23 17:40 12/29/23 17:40 12/29/23 17:40 Medications Acetaminophen (Acetaminophen 500 Mg Tab) 500 mg PO Q6H PRN PRN Reason: TEMP > 100' F Last Admin: 12/27/23 19:47 Dose: 500 mg Docusate Sodium (Docusate Na 100 Mg Cap) 100 mg PO BID [facility] Last Admin: 12/29/23 08:39 Dose: Not Given Glucagon (Glucagon 1 Mg/Vial) 1 mg IM 1X PRN PRN Reason: HYPOGLYCEMIA Hydralazine HCl (Hydralazine Hcl 20 Mg/Ml Vial) 10 mg IV Q6HP PRN PRN Reason: FOR SBP>160 OR DBP>100 MMHG Dextrose (D10w 500 Ml Ivpb) 500 mls @ 0 mls/hr IV .Q0M JENNA Dextrose (Dextrose 10% Water Iv Soln.) 125 mls @ 0 mls/hr IV PRN PRN; Protocol PRN Reason: HYPOGLYCEMIA Insulin Human Regular (Insulin Regular (Human) 100 Unit/Ml) 0 unit SQ Q6HR [facility]; Protocol Last Admin: 12/29/23 17:05 Dose: Not Given Levothyroxine Sodium (Levothyroxine Sod 0.088 Mg Tab) 0.088 mg PO DAILYAC [facility] Last Admin: 12/29/23 05:33 Dose: 0.088 mg Nutritional Formula (Ensure High Protein 237 Ml Can) 237 ml PO BID [facility] Last Admin: 12/29/23 08:39 Dose: Not Given Ondansetron HCl (Ondansetron 4 Mg/2 Ml Vial) 4 mg IV Q8H PRN PRN Reason: NAUSEA / VOMITING Pantoprazole Sodium (Pantoprazole 40 Mg Inj) 40 mg IVP Q12HR [facility]; Protocol Last Admin: 12/29/23 08:44 Dose: 40 mg Sodium Chloride (Sodium Chloride 0.9% 10ml Inj) 10 ml IV UD PRN PRN Reason: Diluant Sterile Water (Water For Inj,Sterile 10 Ml) 1.2 ml IM UD PRN PRN Reason: DILUTION OF MED Microbiology Results 12/06/23 16:20 Blood - Blood Aerobic Blood Culture - Final Staph Hominis 12/06/23 16:20 Blood - Blood Blood Culture Gram Stain - Final 12/06/23 16:20 Blood - Blood Anaerobic Blood Culture - Final No growth in 5 days. 12/06/23 18:16 Blood - Blood Aerobic Blood Culture - Final Staph Hominis 12/06/23 18:16 Blood - Blood Blood Culture Gram Stain - Final 12/06/23 18:16 Blood - Blood Anaerobic Blood Culture - Final Staphylococcus Hominis 12/06/23 18:16 Blood - Blood Gram Stain - Final Assessment/ Plan: Nephrology No dyspnea No chest pain No acute events overnight Limited IH/ ROS due to mental status Vitals, medications, blood work and imaging reviewed in the chart General: NAD HEENT: Atraumatic Neck: Supple Respiratory: Clear to auscultation bilaterally, Normal air movement Cardiovascular: LE Edema 1+, Regular rate/rhythm Gastrointestinal: Non-distended, No guarding Musculoskeletal: No clubbing, No warmth Integumentary: No rashes, No cyanosis Neurological: Awake Blevins light Laboratory Data (last 24 hrs) 12/06/23 12/06/23 12/06/23 16:20 16:20 16:20 WBC 3.60 L Hgb 11.9 L Hct 37.3 Plt Count 59 L PT 13.3 H INR 1.19 APTT 26.7 Sodium 152 H* Potassium 2.8 L BUN 53 H Creatinine 1.35 H Glucose 115 H Total Bilirubin 1.3 H AST 16 ALT 26 Alkaline Phosphatase 50 Imagings Data: EXAM DESCRIPTION: Coreen Single View12/06/2023 4:34 pm CLINICAL HISTORY: Confusion COMPARISON: September 2023 FINDINGS: The lungs appear clear of acute infiltrate. The heart is mildly enlarged. Pacemaker leads are in place. IMPRESSION: No acute abnormalities displayed EXAM DESCRIPTION: CT - Head Brain Wo Cont - 12/06/2023 4:40 pm CLINICAL HISTORY: Alteration of awareness/confusion COMPARISON: August 2023 TECHNIQUE: Computed axial tomography of the head was obtained. IV contrast was not requested. All CT scans are performed using dose optimization technique as appropriate and may include automated exposure control or mA/KV adjustment according to patient size. FINDINGS: An intracranial bleed is not seen The ventricles are normal in caliber No extra-axial fluid collection is noted. Prominent cerebral atrophy Mild low-density areas within periventricular, deep and subcortical white matter likely represent ischemic changes secondary to small vessel disease. Fluid within the sinuses/ mastoids is not seen. IMPRESSION: No acute intracranial abnormality is seen If patient's symptoms persist MRI of the brain would be recommended Conclusions/Impression: Hypernatremia with encephalopathy Hyponatremia -Maintain adequate nutrition and hydration Hypokalemia Hypomagnesemia Hypophosphatemia -Monitor levels & replete prn Peripheral Edema with elevated BNP -Daily weight -Lasix prn DM II with CKD/ Proteinuria Hyperglycemia -RISS Hypoalbuminemia -Advance diet as tolerated; continue Ensure Anemia in chronic illness -Monitor H&H -PRBC prn Hypothyroidism, uncontrolled -Continue Levothyroxine Hospitalist note reviewed Case reviewed with Dr. Fregoso
--- NOTE | 2023-12-29 21:44 | PN ---
Subjective: Patient lying in bed. No new acute event. Chart reviewed. Objective: Vital signs: Reviewed. Lungs: Basal crackles. Heart: S1, S2. Regular. Abdomen: Soft, nontender. Bowel sounds present. Extremities: No edema. Assessment And Plan: Bacteremia, resolved. Pancytopenia. Renal insufficiency. Continue to monitor for signs of infection with WBC and fever trends. NF/MODL Voice ID: [id number] Report ID: [id number]
[2023-12-30 05:58] LABS: Absolute Basophils 0.1 K/uL (0-0.5); Absolute Eosinophils 0.1 K/uL (0-0.5); Absolute Lymphocytes (CBC) 0.5 K/uL (0.7-4.9); Absolute Monocytes 0.2 K/uL (0.1-1.3); Absolute Neutrophil 2.9 K/uL (1.8-8.0); Basophils % 1.4 % (0-1.3); Eosinophils % 2.7 % (0-4.4); Hematocrit 22.8 % (36.0-45.0); Hemoglobin 7.4 g/dL (12.0-15.0); Lymphocytes % 12.5 % (15.3-44.8); MCH 31.8 pg (27.0-35.0); MCHC 32.4 g/dL (32.0-36.0); MCV 98.3 fL (80-100); MPV 9.5 fL (7.6-11.3); Monocytes % 5.7 % (3.3-12.3); Neutrophils % 77.7 % (41.7-73.7); Platelets 141 thou/uL (152-406); RBC Red Blood Cell Count 2.32 M/uL (3.86-4.86); Red Cell Distribution Width 19.7 % (12.1-15.2)
[2023-12-30 06:21] LABS: Anion Gap 7.8 mEq/L (5.0-15.0); Potassium 3.8 mEq/L (3.5-5.1)
[2023-12-30] MEDS: NA CHLORIDE 0.9% 250 ML ONE (09:18)
[2023-12-30] MEDS: KCL 20 MEQ/100 mL IVPB 20 MEQ/100 ML BAG IV ONE (09:18)
[2023-12-30] MEDS: LEVOTHYROXINE SOD 0.088 MG TAB PO SCH (09:19)
[2023-12-30] MEDS: GLUCERNA 1.5 CAL 1,000 ML BOT RTH SCH (16:15)
--- NOTE | 2023-12-30 16:53 | P.PN ---
Subjective Date of Service: 12/30/23 Chief Complaint: Worsening confusion/failure to thrive No major changes from yesterday. Status post PEG tube placement 12/28. No reported agitation. Physical Examination - Vital Signs Temperature: 97.1 F Blood Pressure: 109/62 Pulse: 95 Respirations: 16 Pulse Ox (%): 106 Assessment And Plan - Plan Physical Exam: GEN: Drowsy, NAD CV: Regular rate and rhythm, no edema Pulm: Nonlabored breathing, clear bilaterally, ABD: soft, nontender, nondistended Neuro: no focal motor deficit, Problem List: Severe Hypernatremia secondary to hypovolemia; resolved Toxic Encephalopathy Hypokalemia, Hypomagnesemia, Hypophosphatemia ALCIDES, prerenal Staph Hominis bacteremia, unknown source Hematuria, resolved Fungal UTI Hypothyroidism Myxedema coma Bilateral cephalic vein thrombus (12/10/23) hx DVT/PE; unprovoked; s/p IVC filter thrombocytopenia, chronic NIDDM2 Dementia hx CVA Severe Hypernatremia secondary to hypovolemia; resolved Toxic Encephalopathy Failure to thrive Encephalopathy related to hypernatremia and myxedema. Hypernatremia resolved, mental status has improved. CT head x3 were all negative for any acute findings. (12/05, 12/12, 12/15) unable to do MRI due to presence of pacemaker CT abdomen (12/24): Moderate stool in ascending colon; otherwise no acute findings. No evidence of ileus/small bowel traction. No hydro. CT chest (12/24): no PE. Mild right lower lobe consolidation could reflect pneumonia. significantly limited by motion. Nephrology is following Central line placed 12/09 after PICC was unable to be placed d/t resistance. s/p TPN (~12/09-12/20) Status post PEG tube placement by Dr. Beaulieu. PEG tube feeding with Glucerna started. Monitor residuals. Staph Hominis bacteremia, unknown source Hematuria, resolved Fungal UTI Blood cx: (12/05): Staph Hominis in 3/4 bottles repeat blood cx (12/09): NGTD urine cx (12/15): grew yeast previously on rocephin / vanc (12/06-12/09) and IV cefepime (12/09-12/10) Patient completed 2 weeks of IV vancomycin (12/06-12/21) s/p 1 week of IV diflucan (12/15-12/22) for fungal UTI ID - Dr. Ko is following. Patient is being evaluated for SNF Hypothyroidism Myxedema coma TSH significantly elevated 61.5 (12/05) daughter initialy reported no home meds taken for several months s/p IV hydrocortisone. Dc'd 12/18. s/p IV Synthroid; transitioned to oral Synthroid 12/19 ALCIDES, prerenal-resolved Hypokalemia-resolved Hypomagnesemia-resolved Hypophosphatemia-resolved. Bilateral cephalic vein thrombus (12/10/23) hx DVT/PE; unprovoked ; s/p IVC filter extremity u/s (12/09): +thrombus of right and left cephalic veins (superficial vein thrombosis) h/o dvt/PE s/p prior IVC filter. Lovenox held due to decreasing hemoglobin. and low platelets SCD for DVT prophylaxis. Thrombocytopenia, chronic No evidence of GI bleed. Daily labs. Anemia No active GI bleed. Monitor H&H and transfuse as needed for hemoglobin less than 7. NIDDM2 accu-cheks, SSI Semglee discontinued. VTE: SCD for now Code: DNR Dispo: SNF - pending approval VTE: SCD Code: DNR
--- NOTE | 2023-12-30 23:24 | P.PN ---
Date of Service: 12/30/23 Vital Signs Temp Pulse Resp BP Pulse Ox 97.8 F 74 16 125/66 95 12/30/23 20:00 12/30/23 20:00 12/30/23 20:00 12/30/23 20:00 12/30/23 20:00 Medications Acetaminophen (Acetaminophen 500 Mg Tab) 500 mg PO Q6H PRN PRN Reason: TEMP > 100' F Last Admin: 12/30/23 19:20 Dose: 500 mg Docusate Sodium (Docusate Na 100 Mg Cap) 100 mg PO BID [facility] Last Admin: 12/30/23 20:21 Dose: 100 mg Enteral Nutritional Formula (Glucerna 1.5 Bryan 1,000 Ml Bot) 0 ml RTH CONT [facility] Last Admin: 12/30/23 16:15 Dose: 1,000 ml Glucagon (Glucagon 1 Mg/Vial) 1 mg IM 1X PRN PRN Reason: HYPOGLYCEMIA Hydralazine HCl (Hydralazine Hcl 20 Mg/Ml Vial) 10 mg IV Q6HP PRN PRN Reason: FOR SBP>160 OR DBP>100 MMHG Dextrose (D10w 500 Ml Ivpb) 500 mls @ 0 mls/hr IV .Q0M [facility] Dextrose (Dextrose 10% Water Iv Soln.) 125 mls @ 0 mls/hr IV PRN PRN; Protocol PRN Reason: HYPOGLYCEMIA Insulin Human Regular (Insulin Regular (Human) 100 Unit/Ml) 0 unit SQ Q6HR [facility]; Protocol Last Admin: 12/30/23 18:00 Dose: Not Given Levothyroxine Sodium (Levothyroxine Sod 0.088 Mg Tab) 0.088 mg PO DAILYAC [facility] Last Admin: 12/30/23 09:19 Dose: 0.088 mg Ondansetron HCl (Ondansetron 4 Mg/2 Ml Vial) 4 mg IV Q8H PRN PRN Reason: NAUSEA / VOMITING Pantoprazole Sodium (Pantoprazole 40 Mg Inj) 40 mg IVP Q12HR [facility]; Protocol Last Admin: 12/30/23 20:21 Dose: 40 mg Sodium Chloride (Sodium Chloride 0.9% 10ml Inj) 10 ml IV UD PRN PRN Reason: Diluant Sterile Water (Water For Inj,Sterile 10 Ml) 1.2 ml IM UD PRN PRN Reason: DILUTION OF MED Microbiology Results 12/06/23 16:20 Blood - Blood Aerobic Blood Culture - Final Staph Hominis 12/06/23 16:20 Blood - Blood Blood Culture Gram Stain - Final 12/06/23 16:20 Blood - Blood Anaerobic Blood Culture - Final No growth in 5 days. 12/06/23 18:16 Blood - Blood Aerobic Blood Culture - Final Staph Hominis 12/06/23 18:16 Blood - Blood Blood Culture Gram Stain - Final 12/06/23 18:16 Blood - Blood Anaerobic Blood Culture - Final Staphylococcus Hominis 12/06/23 18:16 Blood - Blood Gram Stain - Final Assessment/ Plan: Nephrology No dyspnea No chest pain No acute events overnight Limited IH/ ROS due to mental status Vitals, medications, blood work and imaging reviewed in the chart General: NAD HEENT: Atraumatic Neck: Supple Respiratory: Clear to auscultation bilaterally, Normal air movement Cardiovascular: LE Edema 1+, Regular rate/rhythm Gastrointestinal: Non-distended, No guarding Musculoskeletal: No clubbing, No warmth Integumentary: No rashes, No cyanosis Neurological: Awake [place]levins light Laboratory Data (last 24 hrs) 12/06/23 12/06/23 12/06/23 16:20 16:20 16:20 WBC 3.60 L Hgb 11.9 L Hct 37.3 Plt Count 59 L PT 13.3 H INR 1.19 APTT 26.7 Sodium 152 H* Potassium 2.8 L BUN 53 H Creatinine 1.35 H Glucose 115 H Total Bilirubin 1.3 H AST 16 ALT 26 Alkaline Phosphatase 50 Imagings Data: EXAM DESCRIPTION: Coreen Single View12/06/2023 4:34 pm CLINICAL HISTORY: Confusion COMPARISON: September 2023 FINDINGS: The lungs appear clear of acute infiltrate. The heart is mildly enlarged. Pacemaker leads are in place. IMPRESSION: No acute abnormalities displayed EXAM DESCRIPTION: CT - Head Brain Wo Cont - 12/06/2023 4:40 pm CLINICAL HISTORY: Alteration of awareness/confusion COMPARISON: August 2023 TECHNIQUE: Computed axial tomography of the head was obtained. IV contrast was not requested. All CT scans are performed using dose optimization technique as appropriate and may include automated exposure control or mA/KV adjustment according to patient size. FINDINGS: An intracranial bleed is not seen The ventricles are normal in caliber No extra-axial fluid collection is noted. Prominent cerebral atrophy Mild low-density areas within periventricular, deep and subcortical white matter likely represent ischemic changes secondary to small vessel disease. Fluid within the sinuses/ mastoids is not seen. IMPRESSION: No acute intracranial abnormality is seen If patient's symptoms persist MRI of the brain would be recommended Conclusions/Impression: Hypernatremia with encephalopathy Hyponatremia -Maintain adequate nutrition and hydration Hypokalemia Hypomagnesemia Hypophosphatemia -Monitor levels & replete prn Peripheral Edema with elevated BNP -Daily weight -Lasix prn DM II with CKD/ Proteinuria Hyperglycemia -RISS Hypoalbuminemia -PEG placed 102-24 -Glucerna started Anemia in chronic illness -Monitor H&H -PRBC prn Hypothyroidism, uncontrolled -Continue Levothyroxine Hospitalist note reviewed Case reviewed with Dr. Fregoso
[2023-12-31 11:05] VITALS: O2SAT 97
[2023-12-31 14:27] LABS: Hematocrit 23.4 % (36.0-45.0); Hemoglobin 7.7 g/dL (12.0-15.0)
[2023-12-31 17:22] VITALS: BP 112/65; TEMP 98.2
--- NOTE | 2023-12-31 17:33 | P.DS ---
Admission Date: 12/06/23 Discharge Date: 12/31/23 Disposition: TRANSFER TO SNF - REHAB Discharge Condition: FAIR Reason for Admission: Worsening confusion/failure to thrive Brief History of Present Illness: 83-year-old female with no past medical history except diagnosis of dementia, not on any medication, recently moved in with the daughter due to increasing confusion, was brought by the daughter to the ER because of increasing and worsening confusion at home. Daughter reported progressive confusion over several months. Symptoms associated with irritability and behavioral issues including temper. Patient was also progressively eating less. Symptoms progressed to the point patient became lethargic. Evaluation in the ER showed hyponatremia and acute kidney injury indicative of dehydration. Patient was admitted for further management. Hospital Course: Diagnosis Severe Hypernatremia secondary to hypovolemia; resolved Toxic Encephalopathy Hypokalemia, Hypomagnesemia, Hypophosphatemia ALCIDES, prerenal Staph Hominis bacteremia, unknown source Hematuria, resolved Fungal UTI Hypothyroidism Myxedema coma Bilateral cephalic vein thrombus (12/10/23) hx DVT/PE; unprovoked; s/p IVC filter thrombocytopenia, chronic NIDDM2 Dementia hx CVA Patient presented with altered mental mental status, noted to have severe hypernatremia and profound hypothyroid state. Patient had prolonged hospital stay, and mental status recovery was protracted. Images done did not show any acute intracranial changes. Patient was treated with IV levothyroxine and later transitioned to oral lev othyroxine. Patient will need repeat TSH within 5-6 weeks. Blood culture grew Staphylococcus hominis. Bacteremia was treated with multiple IV antibiotics in consultation with infectious disease Dr. Ko. Patient completed antibiotics for the bacteremia. She was also treated with diflucan for tad UTI. She has bilateral cephalic vein thrombus She has a history of DVT/PE s/p IVC filter. Anticoagulation held due to decreasing hemoglobin. and low platelets. Patient was eating only 10% or less of her meals. She was failing to thrive. Daughter opted for aggressive measures and agreed to PEG tube placement. PEG tube was placed and Glucerna tube feeding started. Hemoglobin has been stable. Patient vitals have been stable. Vital Signs/Physical Exam: Temp Pulse Resp BP Pulse Ox 98.2 F 105 H 22 H 112/65 98 12/31/23 16:00 12/31/23 16:00 12/31/23 16:00 12/31/23 16:00 12/31/23 16:00 General: Confused, Other (Awake) HEENT: Mucous membr. moist/pink Neck: Supple, JVD not distended Respiratory: Clear to auscultation bilaterally, Normal air movement Cardiovascular: No edema, Regular rate/rhythm, Normal S1 S2 Gastrointestinal: Normal bowel sounds, Soft and benign, Non-distended, No tenderness Musculoskeletal: No swelling Integumentary: No rashes, No cyanosis Neurological: Normal strength at 5/5 x4 extr Laboratory Data at Discharge: WBC 3.80 thou/uL (4.3-10.9) L 12/30/23 05:43 Hgb 7.7 g/dL (12.0-15.0) L 12/31/23 14:01 Hct 23.4 % (36.0-45.0) L 12/31/23 14:01 Plt Count 141 thou/uL (152-406) L 12/30/23 05:43 PT 13.3 SECONDS (9.4-12.5) H 12/06/23 16:20 INR 1.19 12/06/23 16:20 APTT 26.7 SECONDS (24.3-36.9) 12/06/23 16:20 Sodium 138 mEq/L (136-145) 12/31/23 05:40 Potassium 4.0 mEq/L (3.5-5.1) 12/31/23 05:40 BUN 22 mg/dL (7-18) H 12/31/23 05:40 Creatinine 1.14 mg/dL (0.55-1.02) H 12/31/23 05:40 Glucose 136 mg/dL (74-106) H 12/31/23 05:40 Uric Acid 4.8 mg/dL (2.6-6.0) 12/28/23 05:30 Phosphorus 2.6 mg/dL (2.5-4.9) 12/28/23 05:30 Magnesium 1.9 mg/dL (1.6-2.4) 12/29/23 05:30 Total Bilirubin 0.5 mg/dL (0.2-1.0) 12/28/23 05:30 AST 27 U/L (15-37) 12/28/23 05:30 ALT 74 U/L (13-56) H 12/28/23 05:30 Alkaline Phosphatase 87 U/L (45-117) 12/28/23 05:30 Home Medications: Docusate [Colace Cap*] 100 mg PO BID cap 12/31/23 Insulin Regular, Human [Novolin R] See Protocol SQ Q6HR ml 12/31/23 Levothyroxine [Synthroid*] 0.088 mg PO DAILYAC tab 12/31/23 Pantoprazole [Protonix Tab] 40 mg PO Q12H #60 tab 12/31/23 New Medications: Pantoprazole [Protonix Tab] 40 mg PO Q12H #60 tab Physician Discharge Instructions: Patient presented with altered mental mental status, noted to have severe hypernatremia and profound hypothyroid state. Patient had prolonged hospital stay, and mental status recovery was protracted. Images done did not show any acute intracranial changes. Patient was treated with IV levothyroxine and later transitioned to oral levothyroxine. Patient will need repeat TSH within 5-6 weeks. Blood culture grew Staphylococcus hominis. Bacteremia was treated with multiple IV antibiotics in consultation with infectious disease Dr. Ko. Patient completed antibiotics for the bacteremia. She was also treated with diflucan for tad UTI. She has bilateral cephalic vein thrombus She has a history of DVT/PE s/p IVC filter. Anticoagulation held due to decreasing hemoglobin. and low platelets. Patient was eating only 10% or less of her meals. She was failing to thrive. Daughter opted for aggressive measures and agreed to PEG tube placement. PEG tube was placed and Glucerna tube feeding started. Hemoglobin has been stable. Patient vitals have been stable Tube feeding Glucerna at 45 ml/hr Flush with 130ml water every 4hrs to provide a total of 1600ml water/day or as per MD Maintain BG within 70-180 mg/dL Diet: ADA Activity: Fall precautions Followup: Herb Boucher MD [Primary Care Provider] - (Within 2 weeks.) Time spent managing pt's care (in minutes): 42
== END 2023-12-31 17:30 | DRG 640 ==
LOC: ER 15:41 → 4TH 20:10
PROVIDERS: ADMIT Internal Medicine; ATTEND Internal Medicine
PROC: 02HV33Z Insertion of Infusion Device into Superior Vena Cava, Percutaneous Approach (ICD-10-PCS; principal; 2023-12-10)
PROC: 3E0436Z Introduction of Nutritional Substance into Central Vein, Percutaneous Approach (ICD-10-PCS; 2023-12-10)
DX: E87.0 Hyperosmolality and hypernatremia (principal); E03.5 Myxedema coma; G92.9 Unspecified toxic encephalopathy; N17.9 Acute kidney failure, unspecified; I24.89 Other forms of acute ischemic heart disease; N30.01 Acute cystitis with hematuria; D61.818 Other pancytopenia; R78.81 Bacteremia; I82.613 Acute embolism and thrombosis of superficial veins of upper extremity, bilateral; E87.1 Hypo-osmolality and hyponatremia; E87.6 Hypokalemia; I12.9 Hypertensive chronic kidney disease with stage 1 through stage 4 chronic kidney disease, or unspecified chronic kidney disease; N18.2 Chronic kidney disease, stage 2 (mild); E11.22 Type 2 diabetes mellitus with diabetic chronic kidney disease; F03.90 Unspecified dementia, unspecified severity, without behavioral disturbance, psychotic disturbance, mood disturbance, and anxiety; Z86.718 Personal history of other venous thrombosis and embolism; Z79.01 Long term (current) use of anticoagulants; Z66 Do not resuscitate; R62.7 Adult failure to thrive; Z68.31 Body mass index [BMI] 31.0-31.9, adult; E83.42 Hypomagnesemia; E88.09 Other disorders of plasma-protein metabolism, not elsewhere classified; D63.1 Anemia in chronic kidney disease; E03.9 Hypothyroidism, unspecified; E86.0 Dehydration; I87.2 Venous insufficiency (chronic) (peripheral); E86.1 Hypovolemia; Z86.73 Personal history of transient ischemic attack (TIA), and cerebral infarction without residual deficits; Z09 Encounter for follow-up examination after completed treatment for conditions other than malignant neoplasm; Z86.711 Personal history of pulmonary embolism; B95.7 Other staphylococcus as the cause of diseases classified elsewhere; Z95.0 Presence of cardiac pacemaker; E11.65 Type 2 diabetes mellitus with hyperglycemia
CPT/HCPCS: 36415; 36569; 70450; 70470; 71045; 71275; 74177; 80048; 80053; 80069; 80076; 80202; 81001; 82024; 82140; 82533; 82550; 82570; 82947; 83540; 83605; 83735; 83880; 84100; 84132; 84134; 84300; 84439; 84443; 84466; 84484; 84550; 85014; 85018; 85025; 85027; 85610; 85730; 86850; 86900; 86901; 87040; 87077; 87086; 87088; 87186; 87205; 92526; 92610; 93005; 93970; 97110; 97161; 97530; 99285; J0690; J0692; J0696; J1450; J1650; J1720; J2003; J2270; J2470; J2704; J3475; J3480; J7040; J7050; J7120; J7799; P9047; Q9967